=== PATIENT | female | born 1955 | race Caucasian/White ===

== ENCOUNTER → 2018-01-05 11:22 | Outpatient (CLI) | payer BC, SELFPAY ==
--- NOTE | 2018-01-05 11:45 | XR_ITS ---
XR hand RT min 3V HISTORY: Pain following injury ITS.REASON: RT HAND INJURY ORDERING PHYSICIAN: Pepper Arenas PATIENT AGE: 62 years COMPARISON: None FINDINGS: Small bony densities are present along the dorsal aspect of the PIP joint of the fourth and DIP of the and fifth fingers suggesting avulsion fractures which are age indeterminate and may be old.. There are osteoarthritic changes of the DIP joint of the second, third, and fifth digits. Severe osteoarthritic changes are present at the first metacarpal/carpal joint with subarticular cystic changes and bony hypertrophy IMPRESSION: 1. Avulsion type injuries at the PIP of the fourth digit and the appendectomy of the fifth digit. These are age-indeterminate. Correlation with patient's area of pain is needed. 2. Osteoarthritis
== END ==
PROVIDERS: PCP Nurse Practitioner Family; Visit Provider Nurse Practitioner Family
DX: S69.91XA Unspecified injury of right wrist, hand and finger(s), initial encounter (principal)
CPT/HCPCS: 73130

== ENCOUNTER → 2018-02-01 12:11 | Outpatient (CLI) | payer BC, SELFPAY ==
--- NOTE | 2018-02-01 12:18 | XR_ITS ---
XR hand RT min 3V Ordering Physician: Pepper Arenas Patient Age: 62 years: Female HISTORY: ITS.REASON: INJURY OF RT HAND Follow-up fracture fourth finger TECHNIQUE: 3 view right hand COMPARISON :01/05/2018 right hand FINDINGS Fourth finger. Again seen is a tiny osseous flake fragment at the dorsal aspect the PIP joint. This could reflect a tiny dorsal corner fracture vs old fragmented hypertrophic changes.. Clinical correlation required. I tend to favor this is a older feature but cannot exclude acute event if there is focal tenderness here. There are arthritic changes at this joint as well Fifth finger.. Also the lateral view, note tiny fragment off the dorsal aspect DIP joint. With similar considerations. I favor more likely related to the degenerative arthritic process. The index finger also demonstrate a larger more corticated fragment at the dorsal aspect of the DIP joint which is clearly old and a likely related to fragmented hypertrophic spurring Joint Marginal osteophytes most evident at the base the dorsal head of proximal phalanx AP view shows the prominent joint space narrowing and arthritic changes throughout the DIP joints and to lesser degree PIP joints. Is also slight narrowing at the third and second MCP joint. Only slight narrowing and arthritic changes at IP joint of thumb Severe arthritic changes are seen at the first carpal-metacarpal joint with sclerotic changes and hypertrophic changes about this area. IMPRESSION: Osteoarthritis hand . The small previously mentioned small osseous flake fragments the dorsal aspect of fourth finger PIP joint fifth finger DIP joint are again noted. No appreciable change since since 01/05/2018. If focally tender here after trauma either these could be related to tiny flake fractures;. However they may merely be related to the developing hypertrophic degenerative arthritic changes at these joints. No significant change
== END ==
PROVIDERS: PCP Nurse Practitioner Family; Visit Provider Nurse Practitioner Family
DX: S69.91XD Unspecified injury of right wrist, hand and finger(s), subsequent encounter (principal)
CPT/HCPCS: 73130

== ENCOUNTER → 2018-03-23 09:49 | Outpatient (CLI) | payer BC, SELFPAY ==
[2018-03-23 10:40] LABS: Blood Urea Nitrogen 20 mg/dL (7-18); Creatinine,Serum 0.78 mg/dL (0.55-1.02); Estimated Glomerular Filt Rate 75 ml/min (>60); GFR (African American) 91 ML/MIN (>60)
--- NOTE | 2018-03-23 11:32 | CT_ITS ---
CT abdomen pelvis w con CLINICAL INDICATION: ITS.REASON: PERIUMBILICAL ABD PAIN,DIARRHEA NAUSEA AND VOMITING ORDERING PHYSICIAN: Pepper Arenas PATIENT AGE: 62 years TECHNIQUE: Axial images obtained with sagittal and coronal reformats. All CT scans at the facility use one or more dose reduction, viz: automated exposure control; ma/kV adjustment per patient size (including targeted exams where dose is matched to indication; i.e. head); or iterative reconstruction technique. PROCEDURE: Oral Contrast: Redicat IV Contrast: 75 mL Isovue-370. FINDINGS: There are mild atelectatic changes in the left lower lobe. Liver, spleen, adrenal glands, gallbladder, and pancreas have an unremarkable appearance. There is mild ectasia of the right renal pelvis and ureter. No obvious obstructing ureteral calculus evident. No intestinal obstruction or free air. There is a small umbilical hernia containing fat and a knuckle of transverse colon. No evidence of bowel obstruction. Moderate amount retained colonic feces present throughout the colon. There has been prior hysterectomy. No pelvic mass or abnormal fluid collection apparent. There is minimal stranding of the fat in the left lower quadrant at the inguinal region nonspecific. No abscess. No evidence of appendicitis or diverticulitis. No acute bony anomalies. There are few scattered metallic foci in pelvis may be due to small clips. IMPRESSION: 1. No acute finding. 2. Small umbilical hernia containing fat and a knuckle transverse colon. No evidence of intestinal obstruction. Mild amount retained colonic feces. 3. Mild ectasia of the right renal collecting system which could be related to prior obstruction or urinary tract infection. No obstructing calculi evident
== END ==
PROVIDERS: Family Provider Nurse Practitioner Family; PCP Nurse Practitioner Family; Visit Provider Nurse Practitioner Family
DX: R10.33 Periumbilical pain (principal); R19.7 Diarrhea, unspecified; R11.2 Nausea with vomiting, unspecified
CPT/HCPCS: 36415; 74177; 82565; 84520; Q9967

== ENCOUNTER → 2018-06-29 09:42 | Outpatient (CLI) | payer BC, SELFPAY ==
--- NOTE | 2018-06-29 09:42 | XR_ITS ---
XR foot wt bearing LT 3V HISTORY: ITS.REASON: pain ORDERING PHYSICIAN: Analia Hodge DPM PATIENT AGE: 63 years COMPARISON: None FINDINGS: No fracture or dislocation. No lytic or blastic change. There is normal mineralization.. The joint spaces are well-preserved. There are osteoarthritic changes at the second, third, and fourth metatarsal tarsal joint and the navicular cuneiform joint. There are hypertrophic changes along the anterior distal tibia and along the dorsal aspect of the midfoot. There is mild lateral angulation of the second, third, and fourth toes. Calcaneal spurs present without erosion. IMPRESSION: Degenerative changes as described above, no acute finding
--- NOTE | 2018-06-29 09:42 | XR_ITS ---
XR foot wt bearing RT 3V HISTORY: ITS.REASON: pain ORDERING PHYSICIAN: Analia Hodge DPM PATIENT AGE: 63 years COMPARISON: None FINDINGS: No fracture or dislocation. No lytic or blastic change. There is normal mineralization.. The joint spaces are well-preserved. No significant degenerative/arthritic changes. No erosive changes evident. There is a small calcaneal spur. There is normal alignment. Hypertrophic changes are present at the anterior aspect of the distal tibia. Minimal hypertrophic changes are present dorsally in the mid foot and at the distal aspect of the first metatarsal. IMPRESSION: Mild degenerative change, no acute finding
== END ==
PROVIDERS: Visit Provider Podiatrist
DX: M79.673 Pain in unspecified foot (principal)
CPT/HCPCS: 73630

== ENCOUNTER → 2018-07-26 11:29 | Outpatient (CLI) | payer BC, SELFPAY ==
--- NOTE | 2018-07-26 11:34 | XR_ITS ---
XR chest 2V HISTORY: ITS.REASON: PNEUMONIA ORDERING PHYSICIAN: Pepper Arenas PATIENT AGE: 63 years COMPARISON: 05/16/2010 FINDINGS: Right subclavian catheter present with the tip in region of SVC. Unremarkable heart size. The right hilum is prominent possibly related overlying pulmonary vessels. Follow-up may confirm. The lungs are clear bilaterally. Degenerative changes are present thoracic spine. IMPRESSION: No acute finding. Mild prominence of the right hilum. Follow-up recommended to confirm stability
== END ==
PROVIDERS: PCP Nurse Practitioner Family; Visit Provider Nurse Practitioner Family
DX: J18.1 Lobar pneumonia, unspecified organism (principal)
CPT/HCPCS: 71046

== ENCOUNTER 2018-08-02 10:00 | Outpatient (RCR) | payer BC, SELFPAY ==
--- NOTE | 2018-07-07 15:17 | HMH.PTOPEV ---
PT Outpatient Evaluation Rehab PT Outpatient Evaluation Start: 07/07/18 14:56 Freq: Status: Active Protocol: Document 07/07/18 14:56 BRAULIO (Rec: 07/07/18 15:17 PDESEROUX [id number]) Electronically Signed By Jesse Nix, PT 07/07/18 14:56 Outpatient Therapy Subjective History Subjective History Pt. is a 63 year old white female who presents to outpatient PT with chronic bilateral feet pain R>L. Pt. reported she didn't seek out medical attention until 6 months ago. Pt. reported her MD prescribed bilateral inserts which she started using today (07/07/18). Most recent diagnostics negative for fracture in bilateral ankles. PMH include cancer in 1991, 2 c-sections, 5 abdominal surgeries, avendano- prince syndrome, diabetes, gout, and Menieres disease. Current medication include Allopurinol, tylenol, and potassium pills. Chief Complaint Pain Swelling Symptom Type Ache Sharp Symptoms Relieved By Rest/Positioning Ice OTC Meds Symptoms Aggravated By Standing Physical Activity Walking Prior Functional Limitations None Current Functional Limitations Standing Recreation Activity Walking Stairs Symptom Description Constant but Variable Level of pain today (0-10) 0 Pain scale - at its best (0-10) 0 Pain scale - at its worst (0-10) 10 Ankle/Foot Eval Gait Observation General Gait Pattern Observation No Deviations/Normal Assistive Device Ambulation Assistive Device None Palpation Tenderness bilateral Ankle/Foot Palpation Findings Tenderness Ankle/Foot Palpation Overall Comment grade 3 +TTP bilateral posterior tibialis mm. insertion ATF TTP positive PTF TTP positive CF TTP negative Deltoid ligament TTP negative ROM right Ankle/Foot Dorsiflexion w/Knee Extended 16 Active Range Motion (degrees)
== END 2018-08-09 10:26 | disposition home or self-care (01) ==
LOC: PT 10:00
PROVIDERS: Visit Provider Podiatrist
DX: M76.821 Posterior tibial tendinitis, right leg (principal); M76.822 Posterior tibial tendinitis, left leg
CPT/HCPCS: 97010; 97016; 97110; 97112; 97140; 97163

== ENCOUNTER 2018-11-10 10:13 | Outpatient (CLI) | payer BC, SELFPAY ==
[2018-11-10 10:23] VITALS: BMI 48.8
[2018-11-10 11:10] VITALS: BP 131/78; PULSE 80; RESP 20; TEMP 37.1; O2SAT 98
[2018-11-10 11:12] VITALS: BP 131/78; PULSE 80; RESP 18; TEMP 36.8; O2SAT 98
[2018-11-10 11:19] LABS: Basophils % 0.6 % (0.1-2.0); Eosinophils # 0.2 K/mm3 (0.0-0.4); Eosinophils % 3.4 % (0.1-12.0); Hematocrit 39.9 % (37.0-47.0); Hemoglobin 12.7 g/dL (12.2-16.2); Lymphocytes # 2.6 K/mm3 (0.7-4.5); Mean Corpuscular HGB Conc 31.8 g/dL (31.8-35.4); Mean Corpuscular Hemoglobin 29.4 pg (27.0-31.2); Mean Corpuscular Volume 92.5 fl (81-99); Mean Platelet Volume 6.6 fl (7.4-10.4); Monocytes # 0.5 K/mm3 (0.1-1.0); Monocytes % 7.8 % (1.7-9.3); Neutrophils # 3.3 K/mm3 (1.8-7.8); Neutrophils % 49.2 % (37.0-80.0); Platelet Count 368 K/mm3 (142-424); Red Blood Count 4.32 M/mm3 (4.20-5.40); Red Cell Distribution Width 14.4 % (11.5-17.5); White Blood Count 6.7 K/mm3 (4.8-10.8)
[2018-11-10 11:37] LABS: Alanine Aminotransferase 16 U/L (12-78); Albumin Level 3.6 gm/dL (3.4-5.0); Alkaline Phosphatase 75 U/L (46-116); Anion Gap 9.5 mEq/L (5-15); Aspartate Amino Transferase 16 U/L (15-37); Bilirubin,Total 0.4 mg/dL (0.2-1.0); Blood Urea Nitrogen 18 mg/dL (7-18); Carbon Dioxide 32 mmol/L (21.0-32.0); Chloride 101 mmol/L (98-107); Chol/HDL Ratio 4.8 (1-3.5); Cholesterol 272 mg/dL (140-200); Creatinine Clearance Estimated 46 mL/min (50-200); Creatinine,Serum 0.78 mg/dL (0.55-1.02); Estimated Glomerular Filt Rate 75 ml/min (>60); GFR (African American) 90 ML/MIN (>60); Globulin 3.5 gm/dl (1.3-3.2); Glucose 92 mg/dL (74-106); HDL Cholesterol 57 mg/dL (29-89); LDL Cholesterol 195 mg/dL (0-130); Potassium 3.5 mmoL/L (3.5-5.1); Sodium 139 mmol/L (136-145); Total Protein,Serum 7.1 gm/dL (6.4-8.2); Triglycerides 100 mg/dL (30-200); VLDL Cholesterol 20 mg/dL (0-40)
[2018-11-11 11:15] LABS: Cancer Antigen (CA) 125 14.9 U/mL (0.0-38.1); Hep A Ab, IgM Negative (Negative)
[2018-11-11 20:10] LABS: HBV IU/mL HBV DNA not detected IU/mL (.)
== END 2018-11-10 11:10 | disposition home or self-care (01) ==
LOC: INF 10:14
PROVIDERS: PCP Family Medicine; Visit Provider Nurse Practitioner Family
DX: Z45.2 Encounter for adjustment and management of vascular access device (principal); R11.0 Nausea; I10 Essential (primary) hypertension; E78.00 Pure hypercholesterolemia, unspecified; Z85.9 Personal history of malignant neoplasm, unspecified
CPT/HCPCS: 80053; 80061; 85025; 86316; 86708; 87517; J1642

== ENCOUNTER → 2019-04-18 11:16 | Outpatient (CLI) | payer BC, SELFPAY ==
--- NOTE | 2019-04-18 11:28 | XR_ITS ---
XR knee LT 3V HISTORY: Left knee pain following injury ITS.REASON: LT KNEE INJURY ORDERING PHYSICIAN: Pepper Arenas APRN PATIENT AGE: 64 years COMPARISON: 06/09/2017 FINDINGS: Status post total knee replacement. The prosthesis remains in place. No evidence of acute fracture. There is some increase in heterotopic ossification along the distal and lateral aspect of the femur. IMPRESSION: No acute finding. Status post total knee replacement
--- NOTE | 2019-04-18 11:28 | XR_ITS ---
XR knee RT 3V HISTORY: Pain following injury ITS.REASON: RT KNEE INJURY ORDERING PHYSICIAN: Pepper Arenas APRN PATIENT AGE: 64 years COMPARISON: 06/09/2017 FINDINGS: No acute fracture or dislocation. There has been a prior total knee replacement with good alignment of the prosthesis and no evidence of orthopedic complication. IMPRESSION: Prior total knee replacement, no acute finding
== END ==
PROVIDERS: PCP Nurse Practitioner Family; Visit Provider Nurse Practitioner Family
DX: S89.92XA Unspecified injury of left lower leg, initial encounter (principal); S89.91XA Unspecified injury of right lower leg, initial encounter
CPT/HCPCS: 73562

== ENCOUNTER 2019-08-01 13:07 | Outpatient (CLI) | payer BC, SELFPAY ==
[2019-08-01 13:14] VITALS: BMI 47.7
[2019-08-01 13:40] VITALS: BP 112/74; PULSE 68; RESP 20; TEMP 36.9; O2SAT 95
[2019-08-01 14:04] LABS: Basophils % 0.4 % (0.1-2.0); Eosinophils # 0.2 K/mm3 (0.0-0.4); Eosinophils % 2.6 % (0.1-12.0); Hematocrit 38.6 % (37.0-47.0); Hemoglobin 11.6 g/dL (12.2-16.2); Lymphocytes # 2.8 K/mm3 (0.7-4.5); Mean Corpuscular HGB Conc 30.1 g/dL (31.8-35.4); Mean Corpuscular Hemoglobin 27.8 pg (27.0-31.2); Mean Corpuscular Volume 92.5 fl (81-99); Mean Platelet Volume 6.7 fl (7.4-10.4); Monocytes # 0.6 K/mm3 (0.1-1.0); Monocytes % 7.3 % (1.7-9.3); Neutrophils # 4.8 K/mm3 (1.8-7.8); Neutrophils % 56.8 % (37.0-80.0); Platelet Count 362 K/mm3 (142-424); Red Blood Count 4.18 M/mm3 (4.20-5.40); Red Cell Distribution Width 14.4 % (11.5-17.5); White Blood Count 8.5 K/mm3 (4.8-10.8)
[2019-08-01 14:20] LABS: Alanine Aminotransferase 13 U/L (12-78); Albumin Level 3.2 gm/dL (3.4-5.0); Albumin/Globulin Ratio 0.9 (1.1-1.8); Alkaline Phosphatase 70 U/L (46-116); Anion Gap 9.7 mEq/L (5-15); Aspartate Amino Transferase 11 U/L (15-37); Bilirubin,Total 0.2 mg/dL (0.2-1.0); Blood Urea Nitrogen 16 mg/dL (7-18); Carbon Dioxide 32 mmol/L (21.0-32.0); Chloride 102 mmol/L (98-107); Creatinine Clearance Estimated 45 mL/min (50-200); Creatinine,Serum 0.68 mg/dL (0.55-1.02); Estimated Glomerular Filt Rate 87 ml/min (>60); GFR (African American) 105 ML/MIN (>60); Globulin 3.7 gm/dl (1.3-3.2); Glucose 85 mg/dL (74-106); Potassium 3.7 mmoL/L (3.5-5.1); Sodium 140 mmol/L (136-145); Total Protein,Serum 6.9 gm/dL (6.4-8.2)
[2019-08-01 15:12] LABS: Chol/HDL Ratio 5.7 (1-3.5); Cholesterol 216 mg/dL (140-200); HDL Cholesterol 38 mg/dL (29-89); LDL Cholesterol 138 mg/dL (0-130); Triglycerides 202 mg/dL (30-200); VLDL Cholesterol 40 mg/dL (0-40)
== END 2019-08-01 13:45 | disposition home or self-care (01) ==
LOC: INF 13:07
PROVIDERS: Visit Provider Family Medicine
DX: Z45.2 Encounter for adjustment and management of vascular access device (principal)
CPT/HCPCS: 80053; 80061; 85025; J1642

== ENCOUNTER → 2019-08-29 13:07 | Outpatient (CLI) | payer BC, SELFPAY ==
--- NOTE | 2019-08-29 13:16 | XR_ITS ---
PROCEDURE: XR KNEE LT 3V CLINICAL INDICATION: LT KNEE INJURY Fall with injury and pain COMPARISON: KNEE3R KNEE-3 VIEWS-RT from 06/09/2017 KNEE3L KNEE-3 VIEWS-LT from 06/09/2017 FINDINGS: No fracture or dislocation. Status post total knee replacement with good alignment. No evidence of orthopedic complication. There is some faint increased density in the popliteal region as seen on the lateral view possibly due to artifact or soft tissue calcification. IMPRESSION: Good alignment status post total knee replacement. No acute fracture Dictated by: Azeem Rueda MD 08/29/2019 14:17 Electronically signed by Azeem Rueda MD in [place] 08/29/2019 14:17
--- NOTE | 2019-08-29 13:16 | XR_ITS ---
PROCEDURE: XR KNEE RT 3V CLINICAL INDICATION: RT KNEE INJURY Follow-up total knee replacement COMPARISON: KNEE3R KNEE-3 VIEWS-RT from 06/09/2017 KNEE3L KNEE-3 VIEWS-LT from 06/09/2017 FINDINGS: Status post total knee replacement with good alignment in no evidence of orthopedic complication No fracture or dislocation Other findings:None. IMPRESSION: Normal alignment status post total knee replacement Dictated by: Azeem Rueda MD 08/29/2019 14:15 Electronically signed by Azeem Rueda MD in [place] 08/29/2019 14:15
== END ==
PROVIDERS: PCP Nurse Practitioner Family; Visit Provider Nurse Practitioner Family
DX: S89.92XA Unspecified injury of left lower leg, initial encounter (principal); S89.91XA Unspecified injury of right lower leg, initial encounter
CPT/HCPCS: 73562

== ENCOUNTER → 2020-03-16 11:54 | Outpatient (CLI) | payer MEDICARE, BC, SELFPAY ==
--- NOTE | 2020-03-16 | XR_ITS ---
PROCEDURE: XR HIP LT 2-3V W/PELVIS CLINICAL INDICATION: Bilateral hip pain COMPARISON: Right hip same date FINDINGS: There is mild to moderate asymmetrical joint space narrowing somewhat more prominent than the right hip. The femoral head and neck appear intact. There is moderate spurring of the greater trochanter. There is spurring and minor sclerosis of the left SI joint. IMPRESSION: Osteoarthritic changes left hip which are slightly more prominent than the right hip Dictated by: Dr. Panchito Domínguez MD 03/16/2020 12:[address] Panchito Domínguez MD in [facility] 03/16/2020 12:46
--- NOTE | 2020-03-16 | XR_ITS ---
PROCEDURE: XR HIP RT 2-3V W/PELVIS CLINICAL INDICATION: Bilateral hip pain COMPARISON: Left hip same date FINDINGS: There is minor asymmetrical joint space narrowing and moderate sclerosis of the acetabulum superiorly and inferiorly. The femoral head and neck appear intact. There is minor spurring of the greater trochanter. There are no soft tissue calcifications. There is no fracture. There is spurring of the inferior aspects of the SI joints bilaterally. IMPRESSION: Minor osteoarthritic changes as noted Dictated by: Dr. Panchito Domínguez MD 03/16/2020 12:[address] Panchito Domínguez MD in [facility] 03/16/2020 12:45
== END ==
PROVIDERS: PCP Nurse Practitioner Family; Visit Provider Nurse Practitioner Family
DX: M76.822 Posterior tibial tendinitis, left leg (principal); M76.821 Posterior tibial tendinitis, right leg
CPT/HCPCS: 73502

== ENCOUNTER 2020-04-02 13:14 | Outpatient (CLI) | payer MEDICARE, BC, SELFPAY ==
[2020-04-02 13:16] VITALS: BMI 45.7
[2020-04-07 13:52] LABS: Estrogen 46 pg/mL (.)
== END 2020-04-02 13:40 | disposition home or self-care (01) ==
LOC: INF 13:14
PROVIDERS: Visit Provider Nurse Practitioner Family
DX: R23.2 Flushing (principal); Z95.828 Presence of other vascular implants and grafts
CPT/HCPCS: 82672; J1642

== ENCOUNTER → 2020-04-02 14:29 | Outpatient (CLI) | payer MEDICARE, BC, SELFPAY | PROVIDERS: Visit Provider Nurse Practitioner Family | DX: R23.2 Flushing (principal) ==

== ENCOUNTER → 2020-04-26 10:00 | Outpatient (CLI) | payer MEDICARE, BC, SELFPAY | PROVIDERS: PCP Nurse Practitioner Family; Visit Provider Nurse Practitioner Family | DX: R06.02 Shortness of breath (principal) | CPT/HCPCS: 71046 ==

== ENCOUNTER → 2020-06-25 09:49 | Outpatient (CLI) | payer MEDICARE, BC, SELFPAY ==
--- NOTE | 2020-06-25 09:55 | XR_ITS ---
PROCEDURE: XR KNEE RT 3V CLINICAL INDICATION: knee pain COMPARISON: CR KNEE3L KNEE-3 VIEWS-LT from 06/09/2017 CR KNEE3R KNEE-3 VIEWS-RT from 06/09/2017 CR XR KNEE RT 3V from 08/29/2019 CR XR KNEE LT 3V from 08/29/2019 FINDINGS: Status post total knee replacement. There is good alignment of the prosthesis with no acute finding. No significant change from 08/19/2019. Other findings:None. IMPRESSION: Status post total knee replacement with no change in no acute finding Dictated by: Azeem Rueda MD 06/25/2020 11:12 Azeem Rueda MD in [facility] 06/25/2020 11:12
--- NOTE | 2020-06-25 09:55 | XR_ITS ---
PROCEDURE: XR KNEE LT 3V CLINICAL INDICATION: knee pain COMPARISON: CR KNEE3L KNEE-3 VIEWS-LT from 06/09/2017 CR KNEE3R KNEE-3 VIEWS-RT from 06/09/2017 CR XR KNEE RT 3V from 08/29/2019 CR XR KNEE LT 3V from 08/29/2019 FINDINGS: Status post node total knee replacement. Good alignment. Minimal dystrophic calcification noted along the lateral aspect of the distal femur Other findings:None. IMPRESSION: No acute finding status post total knee replacement. No significant change. Dictated by: Azeem Rueda MD 06/25/2020 11:13 Azeem Rueda MD in [facility] 06/25/2020 11:13
== END ==
PROVIDERS: PCP Nurse Practitioner Family; Visit Provider Orthopaedic Surgery
DX: M25.562 Pain in left knee (principal); M25.561 Pain in right knee
CPT/HCPCS: 73562

== ENCOUNTER 2020-06-28 11:00 | Outpatient (RCR) | payer MEDICARE, BC, SELFPAY ==
--- NOTE | 2020-04-26 | XR_ITS ---
PROCEDURE: XR CHEST 2V CLINICAL HISTORY: SOA COMPARISON: CXR2V XR chest 2V from 07/26/2018 FINDINGS: Lung meneses are clear. There is mild degenerative thoracic scoliosis. There is a right IJ sushma catheter with distal tip in the mid SVC. Soft tissues are unremarkable. IMPRESSION: Clear lung meneses, sushma catheter, degenerate scoliosis of the thoracic spine Dictated by: Richard Gmoez 04/26/2020 16:24 Electronically signed by Richard Gomez in [facility] 04/26/2020 16:24
--- NOTE | 2020-04-26 11:19 | HMH.PTOPEV ---
PT Outpatient Evaluation Rehab PT Outpatient Evaluation Start: 04/26/20 10:35 Freq: Status: Active Protocol: Document 04/26/20 10:35 KATJA (Rec: 04/26/20 11:19 KATJA [id number]) Electronically Signed By Alex Jarrell, PT 04/26/20 10:35 Outpatient Therapy Subjective History Subjective History Pt reports h/o chronic B hip/ LE pain over the last ~3 months, 'possibly due to increased walking'. Pt reports chronic LBP as well, and currently reports 'worst area is in the right glut area'. Pt reports R hip weakness, w/ inability to amb. up stairs elading with RLE. Chief Complaint Pain,Stiff,Paresthesia, Weakness Symptom Type Ache,Dull Symptoms Relieved By Rest/Positioning,Heat Symptoms Aggravated By Physical Activity,Walking, Lifting Prior Functional Limitations Lifting,Housework,Walking Current Functional Limitations Lifting,Housework,Walking, Bending/Stooping Symptom Description Constant but Variable Level of pain today (0-10) 9 Pain scale - at its best (0-10) 4 Pain scale - at its worst (0-10) 10 Lumbopelvic Eval Posture Thoracic Spine Posture Standing Position Neutral Lumbar Spine Posture Standing Position Neutral Assistive device Assistive Devices None / NA Gait Observation General Gait Pattern Observation Antalgic Gait,Wide Based Gait Palapation tenderness bilateral lumbar spinal tenderness Yes: 3/4 paraspinal tenderness Yes: 3/4 buttock tenderness Yes: 3/4 Lumbar/Sacral Palpation Findings Tenderness,Muscle Guarding Accessory Movement L-spine Vertebrae Accessory Movements Central P/A [place] that Elicit Symptoms L3 bilateral L4 bilateral L5 bilateral Range of Motion Lumbar Spine Active Flexion Range of 0-30 Motion (degrees) Lumbar Spine Active Extension Range of 0-10 Motion (degrees) Left Lumbar Spine Lateral Flexion Active 0-15 Range of Motion (degrees) Right Lumbar Spine Lateral Flexion 0-15 Active Range of Motion (degrees) Lumbar Spine ROM Limitations Pain Manual Muscle Test Bilateral Knee Extension Strength Grade 5 Normal Knee Flexion Strength Grade 5 Normal Hip Flexion Strength Grade 4- Good- Extensor Hallucis Longus Strength Grade 4 Good Ankle Dorsiflexion Strength Grade 4 Good Gastronemius/Soleus Strength Grade 4- Good- DTR Rt Pat
== END 2020-06-28 11:05 | disposition home or self-care (01) ==
LOC: PT 11:00
PROVIDERS: PCP Nurse Practitioner Family; Visit Provider Orthopaedic Surgery
DX: M25.552 Pain in left hip (principal); M25.551 Pain in right hip
CPT/HCPCS: 71046; 97010; 97012; 97014; 97035; 97110; 97140; 97163; 97164; 97530; G0283

== ENCOUNTER 2020-07-06 14:10 | Outpatient (CLI) | payer MEDICARE, BC, SELFPAY | END 2020-07-06 14:40 | disposition home or self-care (01) | LOC: INF 14:16 | PROVIDERS: Visit Provider Nurse Practitioner Family | DX: Z45.2 Encounter for adjustment and management of vascular access device (principal); Z95.828 Presence of other vascular implants and grafts | CPT/HCPCS: 96523; J1642 ==

== ENCOUNTER 2020-08-08 11:00 | Outpatient (RCR) | payer MEDICARE, BC, SELFPAY ==
--- NOTE | 2020-07-04 11:08 | HMH.PTOPEV ---
PT Outpatient Evaluation Rehab PT Outpatient Evaluation Start: 07/04/20 10:01 Freq: Status: Active Protocol: Document 07/04/20 10:04 KAMERONMANAS (Rec: 07/04/20 11:08 IDANIA [id number]) Electronically Signed By Albert Shetty PT 07/04/20 10:04 Outpatient Therapy Subjective History Subjective History This is the initial Physical Therapy evaluation for Clarissa Russo. Pt is a 65 y/o female referred to PT for c/o B knee pain. Pt reports she had B TKA 5-8 years ago does not remember exactly. Pt reports she did therapy for knees but never felt quite right . Pt reprots c/o pain w/ stairs, walking, household and rec activities. Pt rpeorts her knees sometimes lock up and sometimes give out. Pt reports pain is constant but variable. Chief Complaint Pain,Catches/Locks,Gives out/ Unstable Symptom Type Ache,Throb,Sharp,Stabbing Symptoms Relieved By Rest/Positioning,Ice,OTC Meds Symptoms Aggravated By Physical Activity,Walking Prior Functional Limitations None Current Functional Limitations Housework,Standing,Squatting, Recreation Activity,Walking, Stairs Symptom Description Constant but Variable Level of pain today (0-10) 4 Pain scale - at its best (0-10) 3 Pain scale - at its worst (0-10) 10 Hip/Knee Eval Gait Observation General Gait Pattern Observation No Deviations/Normal Assistive Device Assistive Devices None / NA Palpation Tenderness bilateral Knee Palpation Finding Tenderness Knee Palpation Overall Comment TTP at pes anserine MMT Hip Flexion Strength Grade 4 Good Hip Abduction Strength Grade 4 Good Hip Adduction Strength Grade 4 Good Hip External Rotation Strength Grade 4 Good Hip Internal Rotation Strength Grade 4 Good Knee Extension Strength Grade 4 Good Knee Flexion Strength Grade 4 Good ROM Hip ROM Limitations Soft Tissue Tightness Hip ROM Reason Not Measured Within Functional Limits Knee ROM Reason Not Measured Within Functional Limits Special Tests Hip Bowstring (Cram) Test Negative Left,Negative Right Hip Piriformis Test Negative Left,Negative Right Hip Scouring (Quadrant) Test Positive Left,Positive Right Knee Valgus Stress Test Negative Left,Negative Right Knee Varus Stress Test
== END 2020-08-08 12:00 | disposition home or self-care (01) ==
LOC: PT 11:00
PROVIDERS: PCP Nurse Practitioner Family; Visit Provider Nurse Practitioner Family
DX: M25.562 Pain in left knee (principal); M25.561 Pain in right knee; Z96.652 Presence of left artificial knee joint; Z96.651 Presence of right artificial knee joint
CPT/HCPCS: 97010; 97014; 97035; 97110; 97112; 97163; G0283

== ENCOUNTER → 2020-08-17 11:27 | Outpatient (CLI) | payer MEDICARE, BC, SELFPAY ==
[2020-08-18 09:00] LABS: Covid-19 Nasal PCR Sendout UK NOT DETECTED
== END ==
PROVIDERS: PCP Nurse Practitioner Family; Visit Provider Family Medicine
DX: Z03.818 Encounter for observation for suspected exposure to other biological agents ruled out (principal)
CPT/HCPCS: U0003

== ENCOUNTER → 2020-11-26 11:22 | Outpatient (CLI) | payer MEDICARE, BC, SELFPAY ==
[2020-11-26 12:05] LABS: Basophils # 0.1 K/mm3 (0-0.2); Basophils % 0.6 % (0.1-2.0); Eosinophils # 0.2 K/mm3 (0.0-0.4); Eosinophils % 2.4 % (0.1-12.0); Hematocrit 44.9 % (37.0-47.0); Hemoglobin 14.4 g/dL (12.2-16.2); Lymphocytes # 2.4 K/mm3 (0.7-4.5); Lymphocytes % 27.1 % (10-50); Mean Corpuscular HGB Conc 32.1 g/dL (31.8-35.4); Mean Corpuscular Hemoglobin 30.5 pg (27.0-31.2); Mean Platelet Volume 7.6 fl (7.4-10.4); Monocytes # 0.7 K/mm3 (0.1-1.0); Monocytes % 7.3 % (1.7-9.3); Neutrophils # 5.6 K/mm3 (1.8-7.8); Neutrophils % 62.6 % (37.0-80.0); Platelet Count 449 K/mm3 (142-424); Red Blood Count 4.73 M/mm3 (4.20-5.40); Red Cell Distribution Width 14.3 % (11.5-17.5); White Blood Count 8.9 K/mm3 (4.8-10.8)
[2020-11-26 12:33] LABS: Alanine Aminotransferase 17 U/L (12-78); Albumin Level 4.5 g/dl (3.5-5.0); Albumin/Globulin Ratio 1.4 (1.1-1.8); Alkaline Phosphatase 78 U/L (38-126); Anion Gap 12.3 mEq/L (5-15); Aspartate Amino Transferase 28 U/L (14-36); Bilirubin,Total 0.3 mg/dl (0.2-1.3); Blood Urea Nitrogen 21 mg/dl (7-17); Calcium 10.4 mg/dl (8.4-10.2); Carbon Dioxide 35 mmol/L (22.0-30.0); Chloride 94 mmol/L (98-107); Estimated Glomerular Filt Rate 72 ml/min (>60); GFR (African American) 87 ML/MIN (>60); Globulin 3.2 g/dL (1.3-3.2); Glucose 112 mg/dl (74-100); Potassium 4.3 mmoL/L (3.5-5.1); Sodium 137 mmol/L (136-145); Total Protein,Serum 7.7 g/dl (6.3-8.2)
== END ==
PROVIDERS: Visit Provider Nurse Practitioner Family
DX: R10.30 Lower abdominal pain, unspecified (principal); K59.00 Constipation, unspecified; K92.1 Melena
CPT/HCPCS: 36415; 80053; 85025

== ENCOUNTER → 2020-12-19 13:51 | Outpatient (CLI) | payer MEDICARE, BC, SELFPAY ==
[2020-12-19 15:35] LABS: Blood Urea Nitrogen 15 mg/dl (7-17); Estimated Glomerular Filt Rate 100 ml/min (>60); GFR (African American) 121 ML/MIN (>60)
== END ==
PROVIDERS: Visit Provider Nurse Practitioner Family
DX: Z01.818 Encounter for other preprocedural examination (principal)
CPT/HCPCS: 36415; 82565; 84520

== ENCOUNTER → 2020-12-21 09:03 | Outpatient (CLI) | payer MEDICARE, BC, SELFPAY ==
--- NOTE | 2020-12-21 09:07 | CT_ITS ---
PROCEDURE: CT ABDOMEN PELVIS W CON CLINICAL INDICATION: ABD OR PELVIC SWELLING,ABD PAIN,HEMATOCHEZIA Umbilical pain times several years, constipation, no complaints of nausea vomiting or diarrhea. COMPARISON: CT ABDPELW CT abdomen pelvis w con from 03/23/2018 TECHNIQUE: IV Contrast: 75ML Isovue 370 Oral Contrast small volume Redicat. Patient unable to consume full amount. Axial images obtained with sagittal and coronal reformats. All CT scans at the facility use one or more dose reduction, viz: automated exposure control, ma/kV adjustment per patient size (including targeted exams where dose is matched to indication, i.e. head), or iterative reconstruction technique. FINDINGS: LOWER THORAX: ABDOMEN & PELVIS: There is a small fat containing umbilical hernia without CT evidence of incarceration. There is no intraperitoneal free air or free fluid. Scattered surgical laine are present. There is a sub centimeter right renal cortical cyst too small to further characterize. There is mild prominence of the right renal collecting system and proximal ureter unchanged compared with the prior CT. The solid abdominal organs have an otherwise normal appearance. Urinary bladder is unremarkable. Patient has had prior hysterectomy. Segmental wall thickening in the transverse colon cannot be excluded or further evaluated in the absence of intraluminal contrast. There is a moderate amount of stool in the cecum and ascending colon. A right lower quadrant appendix is not definitely identified however there no CT secondary signs of acute appendicitis. There is no abdominal or pelvic adenopathy. The major abdominal and pelvic vasculature is unremarkable. There is degenerative change in the skeleton. IMPRESSION: Moderate amount of stool in the cecum and ascending colon. Mild unchanged prominence of the right renal collecting system and proximal ureter. Other chronic and minor findings as described above. Dictated by: Alona Bruner MD 12/21/2020 10:09 Alona Bruner MD in [place] 12/21/2020 10:09
== END ==
PROVIDERS: PCP Nurse Practitioner Family; Visit Provider Nurse Practitioner Family
DX: R19.03 Right lower quadrant abdominal swelling, mass and lump (principal); R10.30 Lower abdominal pain, unspecified; K92.1 Melena
CPT/HCPCS: 74177; Q9967

== ENCOUNTER 2021-01-09 10:57 | Outpatient (CLI) | payer MEDICARE, BC, SELFPAY | END 2021-01-09 11:07 | disposition home or self-care (01) | LOC: INF 10:57 | PROVIDERS: Visit Provider Nurse Practitioner Family | DX: Z45.2 Encounter for adjustment and management of vascular access device (principal) | CPT/HCPCS: 96523; J1642 ==

== ENCOUNTER → 2021-03-11 15:46 | Outpatient (CLI) | payer MEDICARE, BC, SELFPAY ==
[2021-03-11 16:17] LABS: Basophils # 0.1 K/mm3 (0-0.2); Eosinophils # 0.3 K/mm3 (0.0-0.4); Eosinophils % 3.7 % (0.1-12.0); Hematocrit 40.8 % (37.0-47.0); Hemoglobin 13.3 g/dL (12.2-16.2); Lymphocytes # 3.5 K/mm3 (0.7-4.5); Lymphocytes % 43.5 % (10-50); Mean Corpuscular HGB Conc 32.6 g/dL (31.8-35.4); Mean Corpuscular Hemoglobin 30.1 pg (27.0-31.2); Mean Corpuscular Volume 92.5 fl (81-99); Monocytes # 0.5 K/mm3 (0.1-1.0); Monocytes % 5.9 % (1.7-9.3); Neutrophils # 3.6 K/mm3 (1.8-7.8); Neutrophils % 45.9 % (37.0-80.0); Platelet Count 397 K/mm3 (142-424); Red Blood Count 4.41 M/mm3 (4.20-5.40); Red Cell Distribution Width 13.5 % (11.5-17.5); White Blood Count 7.9 K/mm3 (4.8-10.8)
[2021-03-11 19:04] LABS: Chloride 97 mmol/L (98-107)
[2021-03-11 19:05] LABS: Sodium 138 mmol/L (136-145)
[2021-03-11 19:07] LABS: Alanine Aminotransferase 15 U/L (12-78); Alkaline Phosphatase 77 U/L (38-126); Aspartate Amino Transferase 26 U/L (14-36); Bilirubin,Total 0.4 mg/dl (0.2-1.3); Blood Urea Nitrogen 16 mg/dl (7-17); Carbon Dioxide 32 mmol/L (22.0-30.0); Estimated Glomerular Filt Rate 100 ml/min (>60); GFR (African American) 121 ML/MIN (>60)
[2021-03-11 19:08] LABS: Albumin Level 4.4 g/dl (3.5-5.0); Albumin/Globulin Ratio 1.6 (1.1-1.8); Globulin 2.8 g/dL (1.3-3.2); Glucose 109 mg/dl (74-100); Magnesium 1.6 mg/dl (1.6-2.3); Total Protein,Serum 7.2 g/dl (6.3-8.2)
[2021-03-11 19:38] LABS: Thyroid Stimulating Hormone 1.36 uIU/mL (0.465-4.68)
== END ==
PROVIDERS: Visit Provider Nurse Practitioner Family
DX: I10 Essential (primary) hypertension (principal); R26.89 Other abnormalities of gait and mobility
CPT/HCPCS: 36415; 80053; 83735; 84443; 85025

== ENCOUNTER → 2021-03-23 10:18 | Outpatient (CLI) | payer MEDICARE, BC, SELFPAY ==
--- NOTE | 2021-03-23 10:29 | MR_ITS ---
PROCEDURE INFORMATION: Exam: MR Head Without Contrast Exam date and time: 03/23/2021 10:29 AM Age: 65 years old Clinical indication: Dizziness; Patient HX: PT has HX of imbalance, vertigo and memory issues. PT has implantable eyelid weights that or researched and found safe in the mri enviroment. ; Additional info: Imbalance and vertigo TECHNIQUE: Imaging protocol: MR of the head without contrast. COMPARISON: No relevant prior studies available. FINDINGS: Brain: No acute intracranial findings. No intracranial hemorrhage as visualized; note that no gradient or susceptibility weighted sequences were performed. No edema, swelling or mass-effect. No significant restricted diffusion/acute ischemia. A few tiny white matter FLAIR hyperintensities, greatest in the right frontal subcortical white matter series 5, images 14 -15, nonspecific but most likely chronic microvascular ischemic change. There are some mildly distended Virchow Diaz spaces, greatest in the deep left white matter along inferior left basal ganglia coronal series 8, image 13, and series 6, image 12 and on the right series 6, image 15, suggesting small vessel disease. No suspicious findings in the cerebellum or brainstem to explain imbalance and vertigo. Internal auditory canals are unremarkable as visualized, note the exam was not performed with high-resolution technique/IAC protocol. Pituitary gland is unremarkable as visualized. Normal expected flow voids in the large vessels of the [id number]. Cerebral ventricles: The ventricles are normal for age. No hydrocephalus. Prominent cavum septum pellucidum noted, a normal variant. Bones/joints: Hyperostosis frontalis interna. No acute fracture or lytic lesion seen. Paranasal sinuses: No acute findings in the visualized sinuses. No significant sinus opacification or air-fluid levels. Mild bilateral ethmoid mucosal thickening. Mastoid air cells: Mastoids are unremarkable as visualized, no effusions. Orbital cavity: Surgical changes in the orbits. Correlate for previous lens replacement surgery/cataract surgery. No acute findings. Soft tissues: There are no soft tissue masses or fluid collections. IMPRESSION: 1. No acute findings. 2. There is no MRI evidence of mass, intracranial hemorrhage, or acute infarct/acute ischemia. 3. Minimal small vessel disease and likely chronic microvascular ischemic changes, as above. 4. The brainstem, posterior fossa and internal auditory canals are unremarkable, as visualized. No obvious etiology of vertigo/imbalance identified. 5. Additional nonemergency and chronic findings as above.
== END ==
PROVIDERS: PCP Nurse Practitioner Family; Visit Provider Nurse Practitioner Family
DX: R42 Dizziness and giddiness (principal); R26.89 Other abnormalities of gait and mobility; R29.6 Repeated falls; R20.0 Anesthesia of skin; R20.2 Paresthesia of skin
CPT/HCPCS: 70551

== ENCOUNTER → 2021-04-19 09:17 | Outpatient (CLI) | payer MEDICARE, BC, SELFPAY ==
--- NOTE | 2021-04-19 09:27 | MR_ITS ---
PROCEDURE: MR LUMBAR SPINE WO CON CLINICAL INDICATION: back pain, gait disturbances, falls COMPARISON: CT CT ABDOMEN PELVIS W CON from 12/21/2020 MR MR HEAD/BRAIN WO CON from 03/23/2021 TECHNIQUE: Standard multiplanar multiecho sequences are performed without contrast. 3-D MIP and myelographic images are also rendered and reviewed FINDINGS: Mild levoscoliosis. Slight anterolisthesis of L4 on L5. No acute compression fractures of the lumbar spine. Visualized kidneys and abdominal aorta are normal. Conus medullaris appears normal terminating at mid L1. Posterior elements appear intact. Marrow signal in the lumbar vertebrae is normal. IMPRESSION: T11-12: Mild diffuse posterior annular disc bulge without nerve root compression or spinal canal stenosis. Moderate bilateral neural foraminal narrowing. T12-L1: Mild diffuse posterior disc herniation without nerve root compression or spinal canal stenosis. Moderate bilateral neural foraminal narrowing. L1-2: Mild diffuse posterior disc herniation without nerve root compression or spinal canal stenosis. Moderate bilateral neural foraminal narrowing. L2-3: Mild spinal canal stenosis due to a small central and bilateral posterolateral disc herniation, some bilateral facet spondylosis, and moderate ligamentum flavum hypertrophy. Large left far lateral disc herniation component noted with apparent compression on the left L2 nerve root far laterally. Moderate to severe left and moderate right neural foraminal narrowing. L3-4: Severe spinal canal stenosis due to a moderate central and bilateral posterolateral disc extrusion, eccentric to the right, with filling of the right lateral recess and apparent compression on the exiting right L4 nerve root, extensive bilateral facet spondylosis, and extensive ligamentum flavum hypertrophy. Moderate to severe bilateral neural foraminal stenosis. L4-5: Severe spinal canal stenosis due to the slight anterolisthesis of L4 on L5 with uncovering of the disc posteriorly, extensive bilateral facet spondylosis, and moderate ligamentum flavum hypertrophy. Moderate right and mild left neural foraminal narrowing. L5-S1: Small central and right paracentral and right far lateral disc herniation with apparent slight compression on the right S1 exiting nerve root and contact of the right L5 nerve root far laterally. Moderate spinal canal stenosis due to the disc herniation and moderate bilateral facet spondylosis. Dictated by: Ortiz Clark MD 04/19/2021 10:53 Ortiz Clark MD in [place] 04/19/2021 10:53
[2021-04-19 12:37] LABS: Vitamin B12 362 pg/mL (239-931)
[2021-04-19 12:42] LABS: Folate 9.55 ng/mL
== END ==
PROVIDERS: PCP Nurse Practitioner Family; Visit Provider Specialist
DX: G89.29 Other chronic pain (principal); M54.5 Low back pain; R29.6 Repeated falls; G58.9 Mononeuropathy, unspecified
CPT/HCPCS: 36415; 72148; 76376; 82607; 82746

== ENCOUNTER → 2021-04-22 12:04 | Outpatient (CLI) | payer MEDICARE, BC, SELFPAY ==
--- NOTE | 2021-04-22 12:17 | XR_ITS ---
PROCEDURE: XR FOOT LT MIN 3V CLINICAL INDICATION: LT FOOT PAIN,INJURY OF LT FOOT COMPARISON: CR [id number] XR foot wt bearing RT 3V from 06/29/2018 CR [id number] XR foot wt bearing LT 3V from 06/29/2018 FINDINGS: No fracture or dislocation. No lytic or blastic change. There is normal mineralization. There is lateral angulation and mild lateral subluxation the proximal phalanx at the 2nd and 3rd toes.. Mild osteoarthritic changes are present at the 1st MTP joint. Osteoarthritic changes are present at the 2nd 3rd and 4th metatarsophalangeal tarsal joint. There is mild widening of the 1st intermetatarsal space but is not significantly changed. The 2nd and 3rd tarsometatarsal the alignment is preserved. Anterior osteophytes are present at the tarsal metatarsal junction. There is a small calcaneal spur. IMPRESSION: Degenerative/osteoarthritic changes. No acute fracture Mild lateral subluxation and lateral angulation at the proximal phalanx of the 2nd and 3rd toes Dictated by: Azeem Rueda MD 04/22/2021 12:39 Azeem Rueda MD in [place] 04/22/2021 12:39
[2021-04-22 13:03] LABS: Basophils % 0.6 % (0.1-2.0); Eosinophils # 0.3 K/mm3 (0.0-0.4); Eosinophils % 3.8 % (0.1-12.0); Hematocrit 39.2 % (37.0-47.0); Hemoglobin 12.9 g/dL (12.2-16.2); Lymphocytes # 3.2 K/mm3 (0.7-4.5); Lymphocytes % 40.8 % (10-50); Mean Corpuscular HGB Conc 32.9 g/dL (31.8-35.4); Mean Corpuscular Hemoglobin 29.8 pg (27.0-31.2); Mean Corpuscular Volume 90.5 fl (81-99); Mean Platelet Volume 7.2 fl (7.4-10.4); Monocytes # 0.5 K/mm3 (0.1-1.0); Monocytes % 6.9 % (1.7-9.3); Neutrophils # 3.8 K/mm3 (1.8-7.8); Neutrophils % 47.9 % (37.0-80.0); Platelet Count 420 K/mm3 (142-424); Red Blood Count 4.33 M/mm3 (4.20-5.40); Red Cell Distribution Width 13.6 % (11.5-17.5); White Blood Count 7.9 K/mm3 (4.8-10.8)
[2021-04-22 13:31] LABS: Chloride 97 mmol/L (98-107); Potassium 4.6 mmoL/L (3.5-5.1); Sodium 140 mmol/L (136-145)
[2021-04-22 13:34] LABS: Alanine Aminotransferase 13 U/L (12-78); Albumin Level 4.5 g/dl (3.5-5.0); Albumin/Globulin Ratio 1.6 (1.1-1.8); Alkaline Phosphatase 77 U/L (38-126); Anion Gap 13.6 mEq/L (5-15); Aspartate Amino Transferase 25 U/L (14-36); Bilirubin,Total 0.4 mg/dl (0.2-1.3); Blood Urea Nitrogen 14 mg/dl (7-17); Calcium 9.7 mg/dl (8.4-10.2); Carbon Dioxide 34 mmol/L (22.0-30.0); Estimated Glomerular Filt Rate 123 ml/min (>60); GFR (African American) 149 ML/MIN (>60); Globulin 2.9 g/dL (1.3-3.2); Glucose 62 mg/dl (74-100); Total Protein,Serum 7.4 g/dl (6.3-8.2)
[2021-04-22 13:43] LABS: NT Pro Brain Natriuretic Pep. 124 pg/mL (0-125)
== END ==
PROVIDERS: Visit Provider Nurse Practitioner Family
DX: R06.02 Shortness of breath (principal); R60.9 Edema, unspecified; M79.672 Pain in left foot; S99.922A Unspecified injury of left foot, initial encounter
CPT/HCPCS: 36415; 73630; 80053; 83880; 85025

== ENCOUNTER → 2021-05-02 08:55 | Outpatient (CLI) | payer MEDICARE, BC, SELFPAY ==
--- NOTE | 2021-05-02 08:59 | US_ITS ---
PROCEDURE: US ABDOMEN LIMITED CLINICAL INDICATION: RUQ PAIN,N/V COMPARISON: No exams were available for comparison FINDINGS: PANCREAS: Unremarkable. No obvious mass or abnormal fluid collection. No ductal dilatation LIVER: No focal liver lesions demonstrated. Homogeneous echogenicity. No intrahepatic biliary ductal dilatation evident. There is appropriate direction of blood flow within a non dilated portal vein RIGHT KIDNEY: There is minimal ectasia of the right renal collecting system. There is a small right renal cyst at 4 mm GALLBLADDER: No gallstones, gallbladder wall thickening, pericholecystic fluid, or biliary dilatation. Common bile duct is normal 5 mm IMPRESSION: Negative gallbladder ultrasound. Minimal ectasia of the right renal collecting system nonspecific Dictated by: Azeem Rueda MD 05/02/2021 13:20 Azeem Rueda MD in [place] 05/02/2021 13:20
== END ==
PROVIDERS: PCP Nurse Practitioner Family; Visit Provider Nurse Practitioner Family
DX: R10.11 Right upper quadrant pain (principal); R11.2 Nausea with vomiting, unspecified
CPT/HCPCS: 76705

== ENCOUNTER → 2021-05-16 08:27 | Outpatient (POV) | payer MEDICARE, BC, SELFPAY ==
[2021-05-16 08:50] VITALS: BP 146/75; PULSE 67; RESP 18; O2SAT 97; BMI 46.6
--- NOTE | 2021-05-16 12:58 | HMH.PMCON ---
Assessment and Plan (1) Spinal stenosis, lumbar Status: Chronic Category: Medical Code(s): M48.061 - Spinal stenosis, lumbar region without neurogenic claudication (2) Degenerative disc disease, lumbar Status: Chronic Category: Medical Code(s): M51.36 - Other intervertebral disc degeneration, lumbar region (3) Lumbar radiculopathy Status: Chronic Category: Medical Code(s): M54.16 - Radiculopathy, lumbar region (4) Neurogenic claudication Status: Chronic Category: Medical Code(s): M48.062 - Spinal stenosis, lumbar region with neurogenic claudication - Assessment and plan all Dx Assessment and Plan for all problems:: Patient I discussed her referral. We will reach out to Dr. Grier to make sure the patient does indeed have a referral. We will start her on gabapentin 100mg 1 tablet p.o. 3 times daily to see if she is able to tolerate the medication. If she is able to tolerate the medication, she may benefit from an increase in that medication and may be able to stop her tramadol which is causing her to have depression. She will continue with home stretching until then. She is unable to take anti-inflammatories due to severe muscle spasms. 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 We will see her back after her referral and in 2 weeks to see if gabapentin gave her any relief. Patient has been instructed to contact the clinic with any concerns before the next appointment. Dr. Ballard has reviewed this note and agrees with this plan of care. This note was dictated using voice recognition software and make contain errors or omissions. HPI - Data of Consult Patient: new to practice Consult date: 05/16/21 Requesting Physician: Flora Medina APRN Primary Care Provider: Pepper Arenas APRN - Consult Narrative Reason for consult: Low back pain History of present illness: Ms. Russo is a 66 year old female who presents today for consultation for chronic low back pain. Patient was referred to us by Dr. Whitehead. Patient says that she is having difficulty with standing, walking, or with sitting for prolonged periods. Patient is having pain in her low back area with radiation into bilateral lower extremities. She is also having bilateral knee pain. Patient says that her knees are buckling . She says that she feels as though she is going to fall often. She is also having pain across her low back area which is worse on the left side. The pain is sharp in nature and constant. She denies any bowel or bladder changes. She denies any saddle anesthesia. She says she is also having muscle spasms in her left hip and left lateral thigh area. She says pressure gives her relief. She has had chronic low back pain since 1978 after having her 1st child. She says the pain has progressively worsened. She has had bilateral knee replacements and 5 abdominal surgeries. She attributed much of her low back pain to her previous surgeries. She does take tramadol along with 3 Tylenol in the mornings and says that it gives her up to 6 hours were relief. She says by the anytime she has to repeat the Tylenol. She does report that tramadol, however, has caused her to have some depression. She does have imaging that is showing severe spinal stenosis, along with severe narrowing and herniated disks. She does have a referral to [facility] neurosurgery by Dr. Whitehead. Patient does have some numbness and tingling in her lower extremities as well. She has undergone physical therapy for more than 6 weeks with no relief. She continues with home stretching and is unable to take ibuprofen due to spasming of muscles when taking the medication. She is very sensitive to medicines. We did discuss trying gabapentin as a short-term medication for pain relief at this time. She would like to try this. Patient see
== END ==
PROVIDERS: PCP Nurse Practitioner Family; Visit Provider Clinical Nurse Specialist Family Health
DX: M48.062 Spinal stenosis, lumbar region with neurogenic claudication (principal); M51.16 Intervertebral disc disorders with radiculopathy, lumbar region
CPT/HCPCS: 99202; G0463

== ENCOUNTER → 2021-05-30 09:10 | Outpatient (POV) | payer MEDICARE, BC, SELFPAY ==
[2021-05-30 09:17] VITALS: BP 147/75; PULSE 66; RESP 20; O2SAT 96; BMI 46.7
--- NOTE | 2021-05-30 09:48 | HMH.PAINSOAP ---
[facility] Pain Management SOAP Note Subjective:: Patient is a pleasant 66-year-old white female who presents today for follow-up. The patient was seen in our clinic on 05/16/2021. She has been treated for degenerative disc disease lumbar spine with lumbar radiculopathy symptoms and spinal stenosis as well as herniated disc. Patient does have pain in her low low back area with radiation into bilateral lower extremities. She was started on gabapentin 100 mg 1 tablet p.o. 3 times daily at her last visit. This gave her some relief, however, she is having hesitancy taking the medication due to stigma of taking controlled substances. She says her does not take anything for pain, and she feels guilty taking the medication. Patient I discussed if the medication gives her relief, it will help to increase her quality of life. She says that she has started to get some relief. She does admit to taking up to 1500 mg of Tylenol throughout the day for pain relief along with the gabapentin. She says she is not getting much relief. Patient has had a history of GI issues, therefore cannot take anti-inflammatories. The patient has also had a reaction with steroids in the past and uses caution with taking any type of steroids. She says that she is unable to tolerate many medications. She does rate her pain a 6 out of 10 today. Patient says she is unsure if she is interested in surgery, however, she does have a referral to Dr. Grier for June 24. She and I did discuss increasing her gabapentin since she is starting to get relief. She would like to try this. We also discussed changing her muscle relaxer. Flexeril is not giving her much relief. We will increase both the gabapentin and plan for the patient to stop Flexeril and start tizanidine. Patient's legs are giving out. She is now using a walking stick for standing and ambulation. Review of Systems General: No recent weight changes, no fever, no sleep disturbances Respiratory: No cough, [no shortness of air], no recurring pulmonary infections Cardiovascular/peripheral vascular: No chest pain, no palpitations, [no edema], no shortness of breath Gastrointestinal: No new onset incontinence, normal bowel movements reported Genitourinary: No new onset incontinence Musculoskeletal: [] Low back pain with radiation into bilateral lower extremities Psychiatric: [Normal mood/affect] Neurological: [Denies weakness in extremities], [denies balance issues] Objective:: Physical exam General: Alert and oriented x3, no acute distress, pleasant and cooperative, [on room air] Lungs: Respirations even and unlabored, symmetrical chest expansion Eyes: PERRL Musculoskeletal: Flexion and extension of [] lumbar [spine] somewhat guarded secondary to pain, strength in upper and lower extremities [5/5], [antalgic gait noted] Neurological: Speech clear, [bank sales and service manager equal], no gross sensory deficit Assessment:: Degenerative disc disease lumbar spine with lumbar radiculopathy symptoms, spinal stenosis with neurogenic claudication symptoms, herniated disc lumbar spine Plan:: Patient does have an appointment with Dr. Grier on June 24. We will increase patient's gabapentin to 200 mg 1 tablet p.o. 3 times daily. She does not want to go any higher than this at this time. We will also stop her Flexeril and start her on tizanidine 4 mg 1 tablet p.o. twice daily. We will see the patient back in the clinic after her appointment with Dr. Grier to reevaluate her symptoms. She has been instructed to contact the clinic if she has any concerns for next appointment. Risks and benefits of the medication have been explained in detail to the patient. The patient has been advised to consult with his/her primary care provider and pharmacist regarding drug-drug interaction of medications currently prescribed. Patient has been instructed to contact the clinic with any concerns before the next appointment. Dr. Ballard has reviewed this
== END ==
PROVIDERS: PCP Nurse Practitioner Family; Visit Provider Clinical Nurse Specialist Family Health
DX: M51.16 Intervertebral disc disorders with radiculopathy, lumbar region (principal); M48.062 Spinal stenosis, lumbar region with neurogenic claudication; M51.26 Other intervertebral disc displacement, lumbar region
CPT/HCPCS: 99212; G0463

== ENCOUNTER → 2021-07-01 09:58 | Outpatient (POV) | payer MEDICARE, BC, SELFPAY ==
[2021-07-01 10:10] VITALS: BP 136/63; PULSE 69; RESP 18; O2SAT 95; BMI 46.6
--- NOTE | 2021-07-01 10:32 | HMH.PAINSOAP ---
[facility] Pain Management SOAP Note Subjective:: Patient is a pleasant 66 year old female who presents today for follow up. Patient is being treated for degenerative disc disease lumbar spine with lumbar radicular symptoms and spinal stenosis with neurogenic claudication symptoms. Patient does have herniated disc. At last visit, the patient was referred to Dr. Grier for herniated disc She was also increased with her medication. She was on gabapentin 200 mg 1 tablet p.o. 3 times daily and tizanidine 4 mg 1 tablet p.o. twice daily as needed muscle spasms. Patient says that she is feeling groggy and feeling like she is hung over with her gabapentin dosing. It is giving her relief, however. Due to the side effects she is concerned with the medication. Patient says that she did see neurosurgery. It was recommended she undergo surgical intervention in September, however, she was also advised to undergo physical therapy. Patient was told if she gets significant relief with therapy once again, to cancel the surgery. Patient says she saw a chiropractor and ED gave her up to 75% relief to her left leg pain. She is continuing to have some low back pain, however. The patient's pain is 7 out of 10. Review of Systems General: No recent weight changes, no fever, no sleep disturbances Respiratory: No cough, no shortness of air, no recurring pulmonary infections Cardiovascular/peripheral vascular: No chest pain, no palpitations, no edema, no shortness of breath Gastrointestinal: No new onset incontinence, normal bowel movements reported Genitourinary: No new onset incontinence Musculoskeletal: Low back pain, left leg pain with heaviness and weakness lower extremities Psychiatric: [Normal mood/affect] Neurological: Heaviness in lower extremities Objective:: Physical exam General: Alert and oriented x3, no acute distress, pleasant and cooperative, [on room air] Lungs: Respirations even and unlabored, symmetrical chest expansion Eyes: PERRL Musculoskeletal: Flexion and extension of lumbar [spine] somewhat guarded secondary to pain, strength in upper and lower extremities [5/5], [antalgic gait noted] Neurological: Speech clear, [public relations account executive equal], no gross sensory deficit Assessment:: Degenerative disc disease lumbar spine with lumbar radiculopathy symptoms, spinal stenosis with neurogenic claudication symptoms, herniated disc lumbar spine Plan:: We will stop her gabapentin dose for now. We will start her on pregabalin 75 mg 1 tablet p.o. twice daily. She will take the medication for 2 to 3 days at bedtime to watch for side effects. If the patient is not having any side effects, she will increase to 75 mg 1 tablet p.o. twice daily. We will increase her ties Joann Nolan to 4 mg 1 tablet p.o. 3 times daily as needed muscle spasms. We will see her back in 2 weeks to see if Lyrica is working. She is not getting relief with Lyrica, will plan-back to gabapentin.-#[id number] 1 month.. Morphine equivalent is 0. Risks and benefits of the medication have been explained in detail to the patient. The patient has been advised to consult with his/her primary care provider and pharmacist regarding drug-drug interaction of medications currently prescribed. Patient has been prescribed a controlled substance after being counseled on the medication, medication safety, and possible side effects. ENZO report has been obtained and reviewed prior to prescription and found to be appropriate. Opioid contract was reviewed and signed by the patient, and that they have agreed to all of the terms set forth by our compliance program. Patient has been instructed to contact the clinic with any concerns before the next appointment. Dr. Ballard has reviewed this note and agrees with this plan of care. This note was dictated using voice recognition software and make contain errors or omissions. [facility] History I have reviewed the patient's past medical history: Yes Medical History: Reports::
== END ==
PROVIDERS: Visit Provider Clinical Nurse Specialist Family Health
DX: M51.16 Intervertebral disc disorders with radiculopathy, lumbar region (principal); M48.062 Spinal stenosis, lumbar region with neurogenic claudication; M51.26 Other intervertebral disc displacement, lumbar region
CPT/HCPCS: 99212; G0463

== ENCOUNTER 2021-07-10 10:59 | Outpatient (CLI) | payer MEDICARE, BC, SELFPAY | END 2021-07-10 11:30 | disposition home or self-care (01) | LOC: INF 11:00 | PROVIDERS: PCP Nurse Practitioner Family; Visit Provider Nurse Practitioner Family | DX: Z95.828 Presence of other vascular implants and grafts (principal); Z45.2 Encounter for adjustment and management of vascular access device | CPT/HCPCS: 96523; J1642 ==

== ENCOUNTER → 2021-07-18 14:46 | Outpatient (POV) | payer MEDICARE, BC, SELFPAY ==
[2021-07-18 14:57] VITALS: BP 135/69; PULSE 73; RESP 18; O2SAT 95; BMI 47.0
--- NOTE | 2021-07-18 15:19 | HMH.PAINSOAP ---
[facility] Pain Management SOAP Note Subjective:: Patient is a 66-year-old white female who presents today for medication refills. She has been treated for degenerative disc disease lumbar spine with lumbar radiculopathy symptoms and spinal stenosis with neurogenic claudication symptoms. She also has a herniated disc. She was referred to Dr. Grier office. She is planning to undergo surgical intervention with Dr. Grier. She continues with chiropractic therapy with Dr. Burrell in [facility]. She is managed in our clinic with tizanidine 4 mg 1 tablet p.o. twice daily and with Lyrica 75 mg 1 tablet p.o. twice daily. She was changed from gabapentin to tizanidine due to side effects with gabapentin. She does feel that Lyrica is giving her better relief. She says that she is noticing some increased pain, however, mid day. Today, she rates her pain a 7 out of 10. Though the medication is not taking all of her pain away, she does feel it is making her more functional. Review of Systems General: No recent weight changes, no fever, no sleep disturbances Respiratory: No cough, no shortness of air, no recurring pulmonary infections Cardiovascular/peripheral vascular: No chest pain, no palpitations, no edema, no shortness of breath Gastrointestinal: No new onset incontinence, normal bowel movements reported Genitourinary: No new onset incontinence Musculoskeletal: Low back pain with radiation into bilateral lower extremities Psychiatric: [Normal mood/affect] Neurological: Heaviness and weakness in bilateral lower extremities Objective:: Physical exam General: Alert and oriented x3, no acute distress, pleasant and cooperative, [on room air] Lungs: Respirations even and unlabored, symmetrical chest expansion Eyes: PERRL Musculoskeletal: Flexion and extension of lumbar [spine] somewhat guarded secondary to pain, strength in upper and lower extremities [5/5], [antalgic gait noted] Neurological: Speech clear, [practical nursing teacher equal], no gross sensory deficit Assessment:: Degenerative disc disease lumbar spine with lumbar radiculopathy symptoms, spinal stenosis with neurogenic claudication symptoms Plan:: We will continue the patient on to have tizanidine 4 mg 1 tablet p.o. twice daily and Lyrica 75 mg 1 tablet p.o. 3 times daily. We will increase her Lyrica to 3 times daily due to worsening pain midday. She is tolerating the medications without any side effects. Enzo #[id number] has been reviewed and is appropriate. Morphine equivalent is 0. We will see the patient back in 3 months. She will get 3 months of medication. Risks and benefits of the medication have been explained in detail to the patient. The patient has been advised to consult with his/her primary care provider and pharmacist regarding drug-drug interaction of medications currently prescribed. Patient has been prescribed a controlled substance after being counseled on the medication, medication safety, and possible side effects. ENZO report has been obtained and reviewed prior to prescription and found to be appropriate. Opioid contract was reviewed and signed by the patient, and that they have agreed to all of the terms set forth by our compliance program. Patient has been instructed to contact the clinic with any concerns before the next appointment. Dr. Ballard has reviewed this note and agrees with this plan of care. This note was dictated using voice recognition software and make contain errors or omissions. [facility] History I have reviewed the patient's past medical history: Yes Medical History: Reports:: Cancer, Depression, Hyperlipidemia, Hypertension, Osteoporosis *Have you ever received a pneumonia vaccine?: No *Have you received a flu vaccine this season?: No Other Medical History: Reports: Arthritis, Cataracts, Fibromyalgia, Osteoporosis, Sinus Problems Other Surgeries: Yes: Cancer Surgery, Cardiac Catheterization, Colonoscopy, , Diagnostic Lap, Hysterectomy-To
== END ==
PROVIDERS: Visit Provider Clinical Nurse Specialist Family Health
DX: M51.16 Intervertebral disc disorders with radiculopathy, lumbar region (principal); M48.062 Spinal stenosis, lumbar region with neurogenic claudication
CPT/HCPCS: 99212; G0463

== ENCOUNTER 2021-08-13 11:00 | Outpatient (RCR) | payer MEDICARE, BC, SELFPAY ==
--- NOTE | 2021-08-13 11:32 | HMH.RHREAS ---
Rehab Reassessment Rehab OP Re-assessment Start: 08/13/21 11:01 Freq: Status: Active Protocol: Document 08/13/21 11:01 OLIVIER (Rec: 08/13/21 11:31 OLIVIER [id number]) Electronically Signed By Robert Napoles, PT 08/13/21 11:01 Rehab Re-assessment Subjective Subjective Patient reports 50% improvement since start of care. Objective Objective Notes AROM: flx 65; ext 12; SBr 15; SBl 18 MMT: WFL Pain: 3/10 currently; 8/10 at worst over past week Neuro: NT to L 2/3 dermatomes TTP: L QL 2/4 Assessment Progress Assessment Progressing as Expected Assessment Notes Patient has tolerated progression of Rx well. Compliance with HEP noted with all LS/BLE stretching activities. PT has progressed to introducing progressive core stabilization in the clinic. Patient continues to have relief with supine mechanical traction. Persistent but improved LLE radicular symptoms. Persistent funcitonal limitations with all standing, ambulatory, bending and lifting activities. Patient goals met STG 2 Goals Not Met All others Revised Goals NA Plan Plan Continue with current POC until surgery next month. Frequency of Therapy 2x/week Duration of therapy 4 weeks. Time and Billing Re-Eval Time 15 Re-Eval Billing Units 1 PHYSICIAN CERTIFICATION: I certify the specified therapy services for Clarissa Russo are required, authorized, and reviewed every 30 days.
== END 2021-08-13 11:05 | disposition home or self-care (01) ==
LOC: PT 11:00
PROVIDERS: PCP Nurse Practitioner Family; Visit Provider Clinical Nurse Specialist Family Health
DX: M54.5 Low back pain (principal)
CPT/HCPCS: 97010; 97012; 97014; 97110; 97163; 97164; G0283

== ENCOUNTER → 2021-09-10 08:43 | Outpatient (POV) | payer MEDICARE, BC, SELFPAY ==
[2021-09-10 08:59] VITALS: BP 172/93; PULSE 68; RESP 18; O2SAT 97; BMI 47.5
--- NOTE | 2021-09-10 11:25 | HMH.PAINSOAP ---
[facility] Pain Management SOAP Note Subjective:: Patient is a 66-year-old white female who presents today for follow-up. Patient was previously seen in our clinic for low back pain with radiation into lower extremities. The patient did have per her MRI report herniated disc with spinal stenosis. Patient did request referral to neurosurgery. As result we did send the patient to neurosurgery. We also schedule the patient for physical therapy. Patient got 50% relief during physical therapy. She was scheduled for surgical intervention to lumbar spine, however because she got significant relief during physical therapy she was advised to undergo conservative therapies and surgery was postponed. She is here today to discuss possible conservative interventions with injective therapy before proceeding with surgical intervention. Patient says that she was referred to [facility] neurosurgical department. She did not feel comfortable with Dr. Sushma Milner due to the the provider discussing the patient's weight. Patient says that she felt it was very unprofessional to have discussed her weight with her. She says that she does not feel this is a contributing factor to her pain. The patient is having pain at the low middle to lower back area with radiation into bilateral feet. She says that the pain is also in bilateral knees. She does have pain numbness and tingling in her feet. She does feel better with sitting worse with standing and walking and better when leaning forward. She reports an allergy to all anti-inflammatories. She does continue with home stretching. She was referred back to us for injective therapy, however, patient says she does not really want to proceed with injections but will since surgery has been postponed. She does take Lyrica 75 mg 1 tablet p.o. twice daily which gives her significant relief. She also takes Cymbalta. She is unable to tolerate gabapentin. Review of Systems General: No recent weight changes, no fever, no sleep disturbances Respiratory: No cough, no shortness of air, no recurring pulmonary infections Cardiovascular/peripheral vascular: No chest pain, no palpitations, no edema, no shortness of breath Gastrointestinal: No new onset incontinence, normal bowel movements reported Genitourinary: No new onset incontinence Musculoskeletal: Mid to low back pain with radiation into bilateral knees and legs as well as feet Psychiatric: [Normal mood/affect] Neurological: [Denies weakness in extremities], [denies balance issues] Objective:: Review of Systems General: No recent weight changes, no fever, no sleep disturbances Respiratory: No cough, no shortness of air, no recurring pulmonary infections Cardiovascular/peripheral vascular: No chest pain, no palpitations, no edema, no shortness of breath Gastrointestinal: No new onset incontinence, normal bowel movements reported Genitourinary: No new onset incontinence Musculoskeletal: Low back pain with radiation into bilateral lower extremities numbness and tingling in bilateral feet Psychiatric: [Normal mood/affect] Neurological: [Denies weakness in extremities], [denies balance issues] Assessment:: Degenerative disc disease lumbar spine with lumbar radiculopathy symptoms, spinal stenosis, herniated disc Plan:: . She has also undergone nerve chronic headache so neurosurgery as well as who sent evaluated this from the cervical- radiate patient was referred back to us from [facility] neurosurgery department patient was initially scheduled for surgery, but because she did get up to 50% relief after physical therapy, surgery was postponed. She has been advised that she may benefit from injective therapy. Patient is not necessarily excited about undergoing injective therapy. She does say, however, she will proceed with injective therapy due to recommendation from neurosurgery. Per the patient's MRI report she does have a large left l
== END ==
PROVIDERS: Visit Provider Clinical Nurse Specialist Family Health
DX: M51.16 Intervertebral disc disorders with radiculopathy, lumbar region (principal); M48.061 Spinal stenosis, lumbar region without neurogenic claudication; M51.26 Other intervertebral disc displacement, lumbar region
CPT/HCPCS: 99212; G0463

== ENCOUNTER 2021-10-11 09:28 | Day surgery (SDC) | payer MEDICARE, BC, SELFPAY ==
[2021-10-11 09:34] VITALS: BP 127/53; PULSE 61; RESP 18; TEMP 36.3; O2SAT 97; BMI 45.7
[2021-10-11 10:01] VITALS: BP 138/90; PULSE 89; RESP 18; O2SAT 97
[2021-10-11 10:04] VITALS: BP 137/87; PULSE 64; RESP 18; O2SAT 97
--- NOTE | 2021-10-11 10:11 | P.PCN_ITS ---
- Procedure Date: 10/11/21 Time: 10:11 Anesthesiologist:: Chinedu Ballard MD Complications:: None Pre-procedure Diagnosis:: Degenerative disc disease of lumbar spine with lumbar radiculopathy symptoms and lumbar spinal stenosis with neurogenic claudication symptoms Post-procedure Diagnosis:: Same Indications for Procedure:: Patient is a pleasant 66-year-old white female who we have been treating for low back pain with lumbar radiculopathy symptoms. She does have some increasing low back pain with lumbar spinal stenosis and neurogenic claudication symptoms. She has significant ligamentum flavum hypertrophy as well as herniated disc causing severe stenosis in particular L4-L5. She did get some benefit from physical therapy. We will do a lumbar epidural steroid injection with epidurogram to see if she may be a candidate for minimally invasive lumbar decompression. Procedure Details:: Informed consent was obtained and the risk and benefits of the procedure was explained to the patient. The patient was taken to the procedure room. The patient was placed prone on the procedure table. The patient was prepped and draped in sterile fashion. C-arm fluoroscopy was used to view the lumbar spine. Skin and subcutaneous tissues were anesthetized using lidocaine. I placed an 18-gauge epidural needle and advanced into the L4-L5 interspace using fluor oscopic guidance and [id number] to air. After confirmation of needle placement in the epidural space with dye I injected 2 mL of lidocaine 1.5% with Depo-Medrol 80 mg. Patient tolerated the procedure well with no complications. Plan and Disposition:: Based on dye spread she does have significant stenosis at L3-L4 and L4-L5 bilaterally. I do believe that she would benefit from minimally invasive lumbar decompression at bilateral L3-L4 and L4-L5. We will schedule this when approved.
[2021-10-11 10:20] VITALS: BP 131/68; PULSE 61; RESP 20; O2SAT 98
== END 2021-10-11 10:20 | disposition home or self-care (01) ==
LOC: SC.PAINP 09:29
PROVIDERS: PCP Nurse Practitioner Family; Visit Provider Anesthesiology
DX: M51.16 Intervertebral disc disorders with radiculopathy, lumbar region (principal); M48.062 Spinal stenosis, lumbar region with neurogenic claudication; E78.5 Hyperlipidemia, unspecified; I10 Essential (primary) hypertension; M79.18 Myalgia, other site; F41.9 Anxiety disorder, unspecified; F32.A Depression, unspecified; Z85.43 Personal history of malignant neoplasm of ovary; Z88.6 Allergy status to analgesic agent; Z91.041 Radiographic dye allergy status; Z79.82 Long term (current) use of aspirin; Z79.899 Other long term (current) drug therapy
CPT/HCPCS: 62323; J1040; Q9966

== ENCOUNTER → 2021-10-14 10:16 | Outpatient (POV) | payer MEDICARE, BC, SELFPAY ==
[2021-10-14 10:41] VITALS: BP 150/68; PULSE 60; RESP 18; O2SAT 99; BMI 46.6
--- NOTE | 2021-10-14 10:41 | HMH.PAINSOAP ---
[facility] Pain Management SOAP Note Subjective:: Patient is a 66-year-old white female who presents today for follow-up. The patient recently underwent a lumbar epidural steroid injection with an epidurogram. The patient was referred to neurosurgery at [facility] and was not considered a neurosurgical candidate. She does have significant spinal stenosis and is exhibiting neurogenic claudication type symptoms. Patient reports to have frequent falls due to heaviness and weakness in lower extremities. She is having significant low back pain as well. Ambulating due to pain in her lower extremities. Patient says that her pain is currently a 2 out of 10. She says following the injection she got significant relief. Dr. Ballard did feel the patient was an appropriate candidate for mild procedure L3-L4 L4-L5 bilaterally. The patient says that she would like to proceed with the procedure. She has tried failed conservative therapies of physical therapy for more than 6 weeks and continued home stretching. Patient is not on any anticoagulation therapy. Today, she does have complaints of bilateral knee pain. She has had bilateral knee replacements in the past. Review of Systems General: No recent weight changes, no fever, no sleep disturbances Respiratory: No cough, no shortness of air, no recurring pulmonary infections Cardiovascular/peripheral vascular: No chest pain, no palpitations, no edema, no shortness of breath Gastrointestinal: No new onset incontinence, normal bowel movements reported Genitourinary: No new onset incontinence Musculoskeletal: Low back pain with radiation into bilateral lower extremities, knee pain, heaviness and weakness lower extremities, frequent falls Psychiatric: [Normal mood/affect] Neurological: Weakness bilateral lower extremities, balance issues Objective:: Physical exam General: Alert and oriented x3, no acute distress, pleasant and cooperative Lungs: Respirations even and unlabored, symmetrical chest expansion Eyes: PERRL Musculoskeletal: Flexion and extension of lumbar [spine] somewhat guarded secondary to pain, [antalgic gait noted] Neurological: Speech clear, no gross sensory deficit Assessment:: Degenerative disc disease lumbar spine with lumbar radiculopathy symptoms, spinal stenosis with neurogenic claudication symptoms, bilateral knee pain Plan:: We will refill the patient's Rhys Nolan 4 mg 1 tablet p.o. twice daily. We will also schedule patient for mild procedure. Based on the patient's epidurogram with Dr. Ballard, he did feel the patient was an appropriate candidate for mild procedure at L3-L4 L4-L5 bilaterally. Patient is not diabetic and is not on any anticoagulation therapy. We will schedule her for the procedure and plan to see her back afterwards for evaluation of symptoms. She has tried and failed conservative therapies of physical therapy for more than 6 weeks, home stretching and oral medications. The patient was informed by neurosurgery she is not a neurosurgical candidate. Patient has been instructed to contact the clinic with any concerns before the next appointment. Dr. Ballard has reviewed this note and agrees with this plan of care. This note was dictated using voice recognition software and make contain errors or omissions. [facility] History I have reviewed the patient's past medical history: Yes Medical History: Reports:: Anxiety, Arrhythmia, Cancer (OVARIAN, ENDOMETRIAL), Depression, Hyperlipidemia, Hypertension, Osteoporosis Denies:: Diabetes Mellitus Type 1, Diabetes Mellitus Type 2, MRSA, Seizures *Have you ever received a pneumonia vaccine?: No *Have you received a flu vaccine this season?: No Other Medical History: Reports: Arthritis, Cataracts, Fibromyalgia, Osteoporosis, Sinus Problems. Denies: Blood Transfusion Reaction Other Surgeries: Yes: Cancer Surgery, Cardiac Catheterization, Colonoscopy, , Diagnostic Lap, Hysterectomy-Total, Hysterectomy-Partial, Other Amputation
== END ==
PROVIDERS: Visit Provider Clinical Nurse Specialist Family Health
DX: M51.16 Intervertebral disc disorders with radiculopathy, lumbar region (principal); M48.062 Spinal stenosis, lumbar region with neurogenic claudication; M25.561 Pain in right knee; M25.562 Pain in left knee
CPT/HCPCS: 99212; G0463

== ENCOUNTER → 2021-11-05 11:50 | Outpatient (CLI) | payer MEDICARE, BC, SELFPAY | PROVIDERS: PCP Nurse Practitioner Family; Visit Provider Nurse Practitioner | DX: U07.1 COVID-19 (principal) | CPT/HCPCS: C9803; U0003; U0005 ==

== ENCOUNTER → 2021-12-26 11:44 | Outpatient (CLI) | payer MEDICARE, BC, SELFPAY ==
--- NOTE | 2021-12-26 11:51 | XR_ITS ---
FINAL REPORT CLINICAL HISTORY: RIGHT ELBOW PAIN, fall FINDINGS: RIGHT ELBOW 3 views were obtained. There is no acute fracture or dislocation. There is no joint effusion. The joint spaces are intact. There is a small osteophyte along the posterior olecranon. There are hypertrophic changes along the medial joint line. There is no soft tissue abnormality. IMPRESSION: No acute process. Reviewed, Interpreted and Dictated by Amari Alonso MD Transcribed by Jung Escalante Authenticated by Amari Alonso MD on 12/26/2021 12:53:06 PM [facility]
== END ==
PROVIDERS: PCP Nurse Practitioner Family; Visit Provider Nurse Practitioner Family
DX: M25.521 Pain in right elbow (principal)
CPT/HCPCS: 73080

== ENCOUNTER → 2022-01-29 13:21 | Outpatient (CLI) | payer MEDICARE, BC, SELFPAY ==
[2022-01-29 14:17] LABS: Basophils # 0.1 K/mm3 (0-0.2); Basophils % 0.6 % (0.1-2.0); Eosinophils # 0.3 K/mm3 (0.0-0.4); Eosinophils % 1.9 % (0.1-12.0); Hematocrit 37.6 % (37.0-47.0); Hemoglobin 12.2 g/dL (12.2-16.2); Lymphocytes # 2.4 K/mm3 (0.7-4.5); Mean Corpuscular HGB Conc 32.6 g/dL (31.8-35.4); Mean Corpuscular Hemoglobin 29.5 pg (27.0-31.2); Mean Corpuscular Volume 90.5 fl (81-99); Monocytes # 1.4 K/mm3 (0.1-1.0); Neutrophils % 68.5 % (37.0-80.0); Platelet Count 376 K/mm3 (142-424); Red Blood Count 4.15 M/mm3 (4.20-5.40); Red Cell Distribution Width 14.9 % (11.5-17.5); White Blood Count 13.1 K/mm3 (4.8-10.8)
[2022-01-29 15:15] LABS: Anion Gap 10.9 mEq/L (5-15); Blood Urea Nitrogen 19 mg/dl (7-17); Carbon Dioxide 33 mmol/L (22.0-30.0); Chloride 96 mmol/L (98-107); Estimated Glomerular Filt Rate 84 ml/min (>60); GFR (African American) 101 ML/MIN (>60); Glucose 97 mg/dl (74-100); Potassium 3.9 mmoL/L (3.5-5.1); Sodium 136 mmol/L (136-145)
== END ==
PROVIDERS: Visit Provider Anesthesiology
DX: Z01.818 Encounter for other preprocedural examination (principal); Z11.52 Encounter for screening for COVID-19; M51.36 Other intervertebral disc degeneration, lumbar region
CPT/HCPCS: 36415; 80048; 85025; C9803; U0003; U0005

== ENCOUNTER → 2022-02-13 09:55 | Outpatient (POV) | payer MEDICARE, BC, SELFPAY ==
[2022-02-13 10:04] VITALS: BP 154/83; PULSE 62; RESP 18; TEMP 36.7; O2SAT 92; BMI 47.3
--- NOTE | 2022-02-13 10:44 | HMH.PAINSOAP ---
[facility] Pain Management SOAP Note Subjective:: Patient is a pleasant 66-year-old female who is here for medication refill and follow-up. Patient is currently being treated for degenerative disc disease of lumbar spine with lumbar radiculopathy symptoms, spinal stenosis with neurogenic claudication. Patient is being managed with Lyrica 100 mg twice a day. Patient denies any side effects from the medications. We have tried a series of lumbar epidural steroid injections with this patient to provide a temporary relief. We also referred this patient to neurosurgery at who deemed her a nonsurgical candidate. When we did an epidurogram, Dr. Ballard recommends a minimally invasive lumbar decompression procedure bilaterally at L3-L4 and L4-L5. We have scheduled this patient for this procedure for the end of January. In regards to her pain medication, patient is needing refills on her medication. She wants to know if we can increase her Lyrica dose today because she is still hurting a lot in her back. She is also wanting refills on her tizanidine 4 mg nightly. Rates pain as 6 out of 10. [facility] number [id number] with an active morphine equivalent 0. Drug screens have been reviewed and appropriate. Review of Systems: General: No recent weight changes, no fever, no sleep disturbances Respiratory: No cough, no shortness of air, no recurring pulmonary infections Cardiovascular/peripheral vascular: No chest pain, no palpitations, no edema, no shortness of breath Gastrointestinal: No new onset incontinence, normal bowel movements reported Genitourinary: No new onset incontinence Musculoskeletal: Low back pain Psychiatric: [Normal mood/affect] Neurological: [Denies weakness in extremities], [denies balance issues] Objective:: Physical Exam: General: Alert and oriented x3, no acute distress, pleasant and cooperative, [on room air] Lungs: Respirations even and unlabored, symmetrical chest expansion Eyes: PERRL Musculoskeletal: Flexion and extension of lumbar [spine] somewhat guarded secondary to pain, [antalgic gait noted] Neurological: Speech clear, no gross sensory deficit Assessment:: Degenerative disc disease of the lumbar spine with lumbar radiculopathy Spinal stenosis with neurogenic claudication Plan:: Patient presents today with worsening low back pain that radiates to bilateral lower extremities. This gets better with lumbar flexion and worse with extension. She states that she has to lean down on her shopping cart whenever she does her groceries to help ease the pain. We have tried a series of lumbar epidural steroid injections on this patient that provided temporary relief. Her epidurogram shows that she is a good candidate for a minimally invasive lumbar decompression procedure bilaterally at L3-L4 and L4-L5. She is scheduled for this procedure at the end of January. Risks and benefits of the procedure have been explained to the patient. Patient would like to proceed with the procedure. I will change the patient's Lyrica to Lyrica 75 mg 3 times a day. I will refill her tizanidine 4 mg at bedtime. We will provide 1 month of refill. Patient has been instructed to contact the clinic with any concerns before the next appointment. Dr. Ballard has reviewed this note and agrees with this plan of care. This note was dictated using voice recognition software and make contain errors or omissions. [facility] History Medical History: Reports:: Anxiety, Arrhythmia, Depression, Hyperlipidemia, Hypertension, Osteoporosis Denies:: Cancer (ovarian, cervical, endometrial), Diabetes Mellitus Type 1, Diabetes Mellitus Type 2, Internal Pacemaker, MRSA, Seizures *Have you ever received a pneumonia vaccine?: No *Have you received a flu vaccine this season?: No Other Medical History: Reports: Arthritis, Cataracts, Fibromyalgia, Osteoporosis, Sinus Problems. Denies: Blood Transfusion Reaction Other Surgeries: Yes: Cancer Surgery, Cardiac Catheterization, Colonoscopy,
== END ==
PROVIDERS: Visit Provider Student in an Organized Health Care Education/Training Program
DX: M51.16 Intervertebral disc disorders with radiculopathy, lumbar region (principal); M48.00 Spinal stenosis, site unspecified; I73.9 Peripheral vascular disease, unspecified
CPT/HCPCS: 99212; G0463

== ENCOUNTER → 2022-02-25 15:15 | Outpatient (CLI) | payer MEDICARE, BC, SELFPAY ==
[2022-02-25 16:15] LABS: Basophils # 0.1 K/mm3 (0-0.2); Basophils % 0.6 % (0.1-2.0); Eosinophils # 0.4 K/mm3 (0.0-0.4); Eosinophils % 4.5 % (0.1-12.0); Hematocrit 43.7 % (37.0-47.0); Hemoglobin 13.9 g/dL (12.2-16.2); Lymphocytes # 3.4 K/mm3 (0.7-4.5); Lymphocytes % 42.5 % (10-50); Mean Corpuscular HGB Conc 31.7 g/dL (31.8-35.4); Mean Corpuscular Hemoglobin 28.4 pg (27.0-31.2); Mean Corpuscular Volume 89.4 fl (81-99); Mean Platelet Volume 6.9 fl (7.4-10.4); Monocytes # 0.5 K/mm3 (0.1-1.0); Monocytes % 6.4 % (1.7-9.3); Neutrophils # 3.6 K/mm3 (1.8-7.8); Neutrophils % 45.9 % (37.0-80.0); Platelet Count 385 K/mm3 (142-424); Red Blood Count 4.89 M/mm3 (4.20-5.40); Red Cell Distribution Width 14.6 % (11.5-17.5); White Blood Count 7.9 K/mm3 (4.8-10.8)
[2022-02-25 16:29] LABS: Chloride 98 mmol/L (98-107); Sodium 139 mmol/L (136-145)
[2022-02-25 16:30] LABS: Potassium 3.4 mmoL/L (3.5-5.1)
[2022-02-25 16:32] LABS: Blood Urea Nitrogen 11 mg/dl (7-17); Estimated Glomerular Filt Rate 100 ml/min (>60); GFR (African American) 121 ML/MIN (>60)
[2022-02-25 16:33] LABS: Anion Gap 11.4 mEq/L (5-15); Calcium 9.9 mg/dl (8.4-10.2); Carbon Dioxide 33 mmol/L (22.0-30.0); Glucose 147 mg/dl (74-100)
== END ==
PROVIDERS: Visit Provider Anesthesiology
DX: Z01.812 Encounter for preprocedural laboratory examination (principal); Z11.52 Encounter for screening for COVID-19; M51.36 Other intervertebral disc degeneration, lumbar region
CPT/HCPCS: 36415; 80048; 85025; C9803; U0003; U0005

== ENCOUNTER 2022-02-28 06:13 | Day surgery (SDC) | payer MEDICARE, BC, SELFPAY ==
[2022-01-29 09:27] VITALS: BMI 45.7
[2022-02-28] VITALS (8 sets, daily range): BP systolic 127–166; BP diastolic 59–73; PULSE 59–72; RESP 16–18; TEMP 36.2–36.9; O2SAT 93–100
--- NOTE | 2022-02-28 07:14 | P.PN_ITS ---
[facility] Anesthesia Checklist - Patient Identification Patient Identification: Arm Band - Structural Data Admitted From: Home Planned Operative Procedure/s: MILD Procedure at L3/4, L4/5 Consent for Planned Operative Procedure(s) Verified: Yes Verified Documents: Surgical Consent, History and Physical - NPO Status Verified Time NPO: 00:00 - Additional verifications Anesthesia Reactions: No Hx Blood Transfusions: No Blood Transfusion Reaction: No - Airway Assessment C-Spine Mobility Assessed: Yes (mp2) TMJ Mobility Assessed: Yes Dentition: Good Dentition - Neurological Assessment Level of Consciousness: Awake, Alert - Anesthesia Plan Anesthesia Risk discussed: Yes Anesthesia Plan: Verified ASA Class: III Anesthesia Type: MAC [facility] History I have reviewed the patient's past medical history: Yes Medical History: Reports:: Anxiety, Arrhythmia, Depression, Hyperlipidemia, Hypertension, Osteoporosis Denies:: Cancer (ovarian, cervical, endometrial), Diabetes Mellitus Type 1, Diabetes Mellitus Type 2, Internal Pacemaker, MRSA, Seizures *Have you ever received a pneumonia vaccine?: No *Have you received a flu vaccine this season?: No Other Medical History: Reports: Arthritis, Cataracts, Fibromyalgia, Osteoporosis, Sinus Problems. Denies: Blood Transfusion Reaction Anesthesia experience/problems:: nac Laterality Cases: Bilateral: Cataract, Total Knee Replacement Other Surgeries: Yes: Cancer Surgery, Cardiac Catheterization, Colonoscopy, C- section, Diagnostic Lap, Hysterectomy-Total, Hysterectomy-Partial, Other. No: Pacemaker Amputation: No Fractures: No - *Social History Smoking Status: Never smoker Alcohol Intake: never Alcohol Intake Frequency:: other Substance Use Type: denies use *Occupational Status:: retired Housing: house Household Members: spouse *Travel in the last 8 weeks: None - Psychiatric History Pschychiatric History:: Reports:: Anxiety, Depression Family Hx:: No significant family history
--- NOTE | 2022-02-28 09:10 | P.OP_ITS ---
Date of procedure: 02/28/22 Pre-op Diagnosis:: Degenerative disc disease of lumbar spine with lumbar spinal stenosis and neurogenic claudication symptoms Post-op Diagnosis:: Same Procedure performed:: Minimally invasive lumbar decompression bilateral L3-4 L4-L5 Surgeon:: Chinedu Ballard MD FILTER WASHER AND PRESSER:: Christian Ontiveros Anesthesia: MAC Estimated blood loss (mL): 1 Clinical Note:: Patient is a pleasant 66-year-old white female who we are treating for degenerative disc disease of lumbar spine with lumbar radiculopathy symptoms and lumbar spinal stenosis with neurogenic claudication symptoms. She has been seen at [facility] and is not a surgical candidate. She does have significant stenosis based on MRI and epidurogram. We will do bilateral minimally invasive lumbar decompression L3-L4 and L4-5 today. Operative findings:: None Operative note:: Informed consent was obtained and the risk and benefits of the procedure was explained to the patient. The patient was taken to the operating room and placed prone on the procedure table. The patient was prepped and draped in sterile fashion. C-arm fluoroscopy was used to view the lumbar spine. The skin and subcutaneous tissues were anesthetized using lidocaine. A epidural needle was inserted and advanced into the L3-L4 interspace. The skin and subcutaneous tissues again were anesthetized using lidocaine. An incision was made and a access trocar was inserted and advanced to contact at the superior aspect of the L4 lamina on the left side. And a contralateral oblique view the side was viewed. Using a bone rongeur and tissue sculptor we debulked bone from the L3- L4 and L4-L5 interspace on the left side. We then used the tissue sculptor to debulk ligament at the L3-L4 and L4-L5 interspace on the left side. We then moved over to the right side and debulked bone and ligament from L3-L4 and L4-L5 on the right side. There is opening of the stenosis at L3-L4 and L4-L5 bilaterally. The access trocar was removed.We injected 80 mg Depo-Medrol through the epidural needle. The epidural needle was removed and dressings were placed. This encounter for exam is for normal comparison and control in a clinical research program Patient was taken to recovery in stable condition. Patient was discharged home neurologically intact and with good relief of pain symptoms. The patient has significant degenerative changes with bone spurs throughout the L3-L4 and L4-L5 interspace. If she does not get adequate relief from this procedure I do believe she would be a good candidate for spinal cord stimulation. Plan and disposition: We will follow-up with this patient in 2 weeks. Will reevaluate symptoms at that time. Condition: stable Disposition: PACU Complications:: None
--- NOTE | 2022-02-28 10:20 | ECG_ITS ---
APPROVED REPORT Exam: Resting ECG HR:60 bpm ECG Measurements Heart Rate 60 AXES MO 166 P 52 QRSd 98 QRS 29 QT 429 T 29 QTc 430 Conclusion SINUS RHYTHM LOW QRS VOLTAGE IN PRECORDIAL LEADS [QRS DEFLECTION < 1.0 mV IN CHEST LEADS] BORDERLINE ECG UNCONFIRMED REPORT Electronically signed by : Darrian Mcwilliams MD 02/28/2022 17:03:32
== END 2022-02-28 11:10 | disposition home or self-care (01) ==
LOC: OR 06:14
PROVIDERS: PCP Nurse Practitioner Family; Visit Provider Anesthesiology
DX: M51.36 Other intervertebral disc degeneration, lumbar region (principal); M48.062 Spinal stenosis, lumbar region with neurogenic claudication; Z00.6 Encounter for examination for normal comparison and control in clinical research program; F41.9 Anxiety disorder, unspecified; M81.0 Age-related osteoporosis without current pathological fracture; E78.5 Hyperlipidemia, unspecified; I10 Essential (primary) hypertension; I49.9 Cardiac arrhythmia, unspecified; F32.A Depression, unspecified; M19.90 Unspecified osteoarthritis, unspecified site; Z88.6 Allergy status to analgesic agent; Z88.8 Allergy status to other drugs, medicaments and biological substances
CPT/HCPCS: 0275T; 93005; 94640; 96374; C1889; J1040; J2704

== ENCOUNTER → 2022-03-17 11:39 | Outpatient (POV) | payer MEDICARE, BC, SELFPAY ==
[2022-03-17 12:10] VITALS: BP 135/83; PULSE 83; RESP 18; TEMP 36.6; O2SAT 95; BMI 47.3
--- NOTE | 2022-03-17 15:46 | HMH.PAINSOAP ---
[facility] Pain Management SOAP Note Subjective:: Patient is a pleasant 66-year-old female who presents today for follow-up after a minimally invasive lumbar decompression procedure bilaterally at L3-L4 and L4-L5 on February 28, 2022. Patient is currently being treated for degenerative disc disease of lumbar spine with lumbar radiculopathy symptoms, lumbar spinal stenosis with neurogenic claudication symptoms. After the procedure, patient states that she has 70 to 80% relief of symptoms in her back. She has been able to increase her activity since the procedure. Denies any issues after procedure. Patient is also being managed with Lyrica 75 mg 3 times a day and Zanaflex 4 mg at bedtime. I did recently change the patient to Lyrica 75 mg 3 times a day from Lyrica 100 mg twice a day. Patient states that 100 mg twice a day was not providing enough relief. Today, patient states that the Lyrica 75 mg is not touching her neuropathic pain. She wants to know if we can increase this dose. She is also wanting refills on her Zanaflex. She rates her pain today as 7 out of 10. Review of Systems: General: No recent weight changes, no fever, no sleep disturbances Respiratory: No cough, no shortness of air, no recurring pulmonary infections Cardiovascular/peripheral vascular: No chest pain, no palpitations, no edema, no shortness of breath Gastrointestinal: No new onset incontinence, normal bowel movements reported Genitourinary: No new onset incontinence Musculoskeletal: Low back pain, peripheral neuropathic pain Psychiatric: [Normal mood/affect] Neurological: [Denies weakness in extremities], [denies balance issues] Objective:: Physical Exam: General: Alert and oriented x3, no acute distress, pleasant and cooperative Lungs: Respirations even and unlabored, symmetrical chest expansion Eyes: PERRL Musculoskeletal: Flexion and extension of lumbar [spine] somewhat guarded secondary to pain, [antalgic gait noted] Neurological: Speech clear, no gross sensory deficit Assessment:: Degenerative disc disease of the lumbar spine with lumbar radiculopathy symptoms, lumbar spinal stenosis with neurogenic claudication symptoms, peripheral neuropathy Plan:: Patient has been doing well overall after the minimally invasive lumbar decompression bilaterally at L3-L4 and L4-L5. She is still complaining of peripheral pain especially around her lower right leg. She is wanting to increase her Lyrica. We will increase her Lyrica to Lyrica 100 mg 3 times a day. I will also provide the patient refills on her Zanaflex 4 mg at bedtime. Patient does have a very small incision around her low back from the mild procedure. This is healing well. There is no drainage, erythema, swelling. We will follow-up with this patient in 1 month. Patient has been instructed to contact the clinic with any concerns before the next appointment. Dr. Ballard has reviewed this note and agrees with this plan of care. This note was dictated using voice recognition software and make contain errors or omissions. [facility] History Medical History: Reports:: Anxiety, Arrhythmia, Depression, Hyperlipidemia, Hypertension, Osteoporosis Denies:: Cancer (ovarian, cervical, endometrial), Diabetes Mellitus Type 1, Diabetes Mellitus Type 2, Internal Pacemaker, MRSA, Seizures *Have you ever received a pneumonia vaccine?: No *Have you received a flu vaccine this season?: No Other Medical History: Reports: Arthritis, Cataracts, Fibromyalgia, Osteoporosis, Sinus Problems. Denies: Blood Transfusion Reaction Other Surgeries: Yes: Cancer Surgery, Cardiac Catheterization, Colonoscopy, , Diagnostic Lap, Hysterectomy-Total, Hysterectomy-Partial, Other. No: Pacemaker Amputation: No Fractures: No - *Social History Smoking Status: Never smoker Alcohol Intake: never Alcohol Intake Frequency:: other Substance Use Type: denies use *Occupational Status:: retired Housing: house Household Members: spouse *Travel in the [place]
== END ==
PROVIDERS: Visit Provider Student in an Organized Health Care Education/Training Program
DX: M51.16 Intervertebral disc disorders with radiculopathy, lumbar region (principal); M48.062 Spinal stenosis, lumbar region with neurogenic claudication; G62.9 Polyneuropathy, unspecified
CPT/HCPCS: 99212; G0463

== ENCOUNTER → 2022-04-15 11:41 | Outpatient (POV) | payer MEDICARE, BC, SELFPAY ==
--- NOTE | 2022-04-15 12:21 | P.CONS_ITS ---
[facility] Pain Management SOAP Note Subjective:: Patient is a pleasant 66-year-old female that presents today to our clinic for 1 month follow-up after receiving minimally invasive lumbar decompression bilaterally L3-4, L4-5. Patient describes her low back pain as constant, dull, aching. However, she is overall better than she was prior to the procedure. She reports 90% of her bilateral leg radicular symptoms have subsided. Still has soreness in bilateral feet at times. She rates her pain 5/10. Patient is currently being managed with Lyrica grams 1 p.o. 3 times daily. She is asking for an increase in that medication. I think this is appropriate. We will increase to Lyrica to 150 mg 1 p.o. 3 times daily. She is also on Zanaflex 4 mg at bedtime. On reviewing her Raoul #[id number] and it is appropriate. She seems to be doing quite well overall. Patient inquiring regarding lumbar epidural steroid injection. She has had these in the past with significant improvement. I think this is appropriate. We will set it up for her today. Objective:: Patient is awake alert [place] x3. In no acute distress. Flexion-extension lumbar spine somewhat guarded secondary to pain. Deep tendon reflexes upper and lower extremities normal. Motor strength upper and lower extremities normal. There is no gross sensory deficit. Gait is antalgic. Assessment:: Degenerative disc disease lumbar spine. Lumbar radiculopathy symptoms. Lumbar spinal stenosis. Plan:: Patient will return to the injection clinic for lumbar epidural steroid injection. [facility] History Medical History: Reports:: Anxiety, Arrhythmia, Depression, Hyperlipidemia, Hypertension, Osteoporosis Denies:: Cancer (ovarian, cervical, endometrial), Diabetes Mellitus Type 1, Diabetes Mellitus Type 2, Internal Pacemaker, MRSA, Seizures *Have you ever received a pneumonia vaccine?: No *Have you received a flu vaccine this season?: No Other Medical History: Reports: Arthritis, Cataracts, Fibromyalgia, Osteoporosis, Sinus Problems. Denies: Blood Transfusion Reaction Other Surgeries: Yes: Cancer Surgery, Cardiac Catheterization, Colonoscopy, C- section, Diagnostic Lap, Hysterectomy-Total, Hysterectomy-Partial, Other. No: Pacemaker Amputation: No Fractures: No - *Social History Smoking Status: Never smoker Alcohol Intake: never Alcohol Intake Frequency:: other Substance Use Type: denies use *Occupational Status:: retired Housing: house Household Members: spouse *Travel in the last 8 weeks: Inside the [place] - Psychiatric History Pschychiatric History:: Reports:: Anxiety, Depression Family Hx:: No significant family history
[2022-04-15 12:59] VITALS: BP 157/84; PULSE 66; RESP 18; TEMP 36.6; O2SAT 98; BMI 47.3
== END ==
PROVIDERS: Visit Provider Nurse Anesthetist, Certified Registered
DX: M51.16 Intervertebral disc disorders with radiculopathy, lumbar region (principal); M48.061 Spinal stenosis, lumbar region without neurogenic claudication; M19.90 Unspecified osteoarthritis, unspecified site
CPT/HCPCS: 99212; G0463

== ENCOUNTER → 2022-04-21 15:14 | Outpatient (CLI) | payer MEDICARE, BC, SELFPAY ==
[2022-04-21 15:59] LABS: Hemoglobin A1C 6.3 % (4.0-6.0)
[2022-04-21 17:34] LABS: Vitamin B12 330 pg/mL (239-931)
[2022-04-21 18:12] LABS: Folate 8.01 ng/mL
== END ==
PROVIDERS: PCP Nurse Practitioner Family; Visit Provider Specialist
DX: R73.9 Hyperglycemia, unspecified (principal)
CPT/HCPCS: 36415; 82607; 82746; 83036

== ENCOUNTER 2022-05-02 13:54 | Day surgery (SDC) | payer MEDICARE, BC, SELFPAY ==
[2022-05-02 14:28] VITALS: BP 150/75; PULSE 69; RESP 18; TEMP 36.7; O2SAT 97; BMI 49.4
[2022-05-02 15:01] VITALS: BP 145/78; PULSE 79; RESP 18; O2SAT 98
[2022-05-02 15:05] VITALS: BP 140/74; PULSE 89; RESP 18; O2SAT 98
--- NOTE | 2022-05-02 15:08 | HMH.PMPROC ---
- Procedure Date: 05/02/22 Time: 15:08 Anesthesiologist:: Chinedu Ballard MD Complications:: None Pre-procedure Diagnosis:: Degenerative disc disease of lumbar spine with lumbar radiculopathy symptoms Post-procedure Diagnosis:: Same Indications for Procedure:: Patient is a pleasant 67-year-old white female who we have been treating for low back pain with lumbar radiculopathy symptoms and spinal stenosis with neurogenic claudication symptoms. She has had minimally invasive lumbar decompression which is helped significantly. She has some residual back pain. We will do a lumbar pleural steroid injection under fluoroscopy today to see if this will help with her pain symptoms. Procedure Details:: Informed consent was obtained and the risk and benefits of the procedure was explained to the patient. The patient was taken to the procedure room. The patient was placed prone on the procedure table. The patient was prepped and draped in sterile fashion. C-arm fluoroscopy was used to view the lumbar spine. Skin and subcutaneous tissues were anesthetized using lidocaine. I placed an 18-gauge epidural needle and advanced into the L4-L5 interspace using fluoroscopic guidance and [id number] to air. After confirmation of needle placement in the epidural space with dye I injected 2 mL of lidocaine 1.5% with Depo-Medrol 80 mg. Patient tolerated the procedure well with no complications. Plan and Disposition:: We will follow-up with her in 2 weeks. Will reevaluate symptoms at that time.
[2022-05-02 15:26] VITALS: BP 145/79; PULSE 58; RESP 20; O2SAT 96
== END 2022-05-02 15:27 | disposition home or self-care (01) ==
LOC: SC.PAINP 13:55
PROVIDERS: PCP Nurse Practitioner Family; Visit Provider Anesthesiology
DX: M51.16 Intervertebral disc disorders with radiculopathy, lumbar region (principal); M48.062 Spinal stenosis, lumbar region with neurogenic claudication
CPT/HCPCS: 62323; J1040; Q9966

== ENCOUNTER → 2022-05-29 10:18 | Outpatient (POV) | payer MEDICARE, BC, SELFPAY ==
[2022-05-29 10:45] VITALS: BP 135/65; PULSE 60; RESP 20; TEMP 36.4; O2SAT 97; BMI 48.4
--- NOTE | 2022-05-29 11:28 | HMH.PAINSOAP ---
[facility] Pain Management SOAP Note Subjective:: Patient is a pleasant 67-year-old female who presents today for follow-up. We are currently treating the patient for degenerative disc disease of lumbar spine with lumbar radiculopathy symptoms. We have done injective therapy in the past for this patient and also done a MILD procedure. Rates her pain a 6 out of 10. She states her pain is in her low back area and into her bilateral knees. She describes this pain as an ache and throbbing sensation that is constant but worse with increased activity. She states rest does make her pain better however it is also weather dependent. Patient has had bilateral knee replacements in the past. She states she has also had intra-articular knee injections in the past with minimal relief. Her last injection of a LESI at L4-L5 gave her about 50% of relief and lasted about 1 week. She states that her feet are doing better at today's visit. She states she is gotten new with a better support. She does currently use a compounding cream with minimal relief. She is currently managed with Lyrica 150 mg 3 times a day. She does states that this medication is working well for her and helping manage her pain. She also is taking Zanaflex 4 mg at bedtime. She states this medication also works well. She is asking for refills on both of these medications at today's visit. Her Raoul is [id number]. It has been reviewed and appropriate. Review of Systems: General: No recent weight changes, no fever, no sleep disturbances Respiratory: No cough, no shortness of air, no recurring pulmonary infections Cardiovascular/peripheral vascular: No chest pain, no palpitations, no edema, no shortness of breath Gastrointestinal: No new onset incontinence, normal bowel movements reported Genitourinary: No new onset incontinence Musculoskeletal: Low back pain, bilateral knee pain Psychiatric: [Normal mood/affect] Neurological: [Denies weakness in extremities], [denies balance issues] Objective:: Physical Exam: General: Alert and oriented x3, no acute distress, pleasant and cooperative Lungs: Respirations even and unlabored, symmetrical chest expansion Eyes: PERRL Musculoskeletal: Flexion and extension of lumbar [spine] somewhat guarded secondary to pain, [antalgic gait noted] Neurological: Speech clear, no gross sensory deficit Assessment:: Degenerative disc disease of lumbar spine with lumbar radiculopathy symptoms, bilateral knee pain Plan:: Patient is having significant pain in her bilateral knees at today's visit. She had point tenderness more on her right knee during today's exam. I have discussed with the patient regarding having a genicular nerve block and RFA in the future if she does get significant relief from these blocks. Risk and benefits were reviewed with the patient. She would like to proceed forward with this injection. I will also refill the patient's Zanaflex at today's visit we will schedule the patient for a right genicular nerve block. Patient has been instructed to contact the clinic with any concerns before the next appointment. Dr. Ballard has reviewed this note and agrees with this plan of care. This note was dictated using voice recognition software and make contain errors or omissions. [facility] History I have reviewed the patient's past medical history: Yes Medical History: Reports:: Anxiety, Arrhythmia, Depression, Hyperlipidemia, Hypertension, Osteoporosis Denies:: Cancer, Diabetes Mellitus Type 1, Diabetes Mellitus Type 2, Internal Pacemaker, MRSA, Seizures *Have you ever received a pneumonia vaccine?: No *Have you received a flu vaccine this season?: No Other Medical History: Reports: Arthritis, Cataracts, Fibromyalgia, Osteoporosis, Sinus Problems. Denies: Blood Transfusion Reaction Other Surgeries: Yes: Cancer Surgery, Cardiac Catheterization, Colonoscopy, , Diagnostic Lap, Hysterectomy-Total, Hysterectomy-Partial, Other. No: Pacemaker Amputation: No F
== END ==
PROVIDERS: Visit Provider Student in an Organized Health Care Education/Training Program
DX: M51.16 Intervertebral disc disorders with radiculopathy, lumbar region (principal); M25.561 Pain in right knee; M25.562 Pain in left knee
CPT/HCPCS: 99212; G0463

== ENCOUNTER 2022-06-13 08:41 | Day surgery (SDC) | payer MEDICARE, BC, SELFPAY ==
[2022-06-13 08:55] VITALS: BP 146/59; PULSE 59; TEMP 36.7; O2SAT 98; BMI 46.7
[2022-06-13 09:36] VITALS: BP 131/60; PULSE 56; RESP 20; O2SAT 96
--- NOTE | 2022-06-13 10:53 | HMH.PMPROC ---
- Procedure Date: 06/13/22 Time: 10:53 Anesthesiologist:: Jesse Espino CRNA Complications:: None Pre-procedure Diagnosis:: Chronic right knee pain. Post-procedure Diagnosis:: Same Indications for Procedure:: This patient is a pleasant 67-year-old female that comes our injection clinic today for right genicular knee injection. Patient has had right total knee replacement 7 years ago. Continued to have chronic right knee pain. She rates the pain 7/10. Procedure Details:: Right knee genicular block Informed consent was obtained and the risk and benefits of the procedure was explained to the patient. The patient was taken to the procedure room. The left knee was prepped using ChloraPrep. I placed 22-gauge needles into the area of the right superior medial genicular nerve, right superior lateral genicular nerve and right inferior medial genicular nerve. Needle placement was confirmed in AP and lateral views with dye. We then injected bupivacaine 0.25% 3 mL's and Depo-Medrol 25 mg into each area of the right superior medial genicular nerve, right superior lateral genicular nerve and right inferior medial genicular nerve. Patient tolerated the procedure well with no complications. Plan and Disposition:: We will follow-up with her in 2 weeks. Will reevaluate symptoms at that time. Plan and Disposition:: Patient was discharged without incident.
== END 2022-06-13 09:37 | disposition home or self-care (01) ==
LOC: SC.PAINP 08:42
PROVIDERS: PCP Nurse Practitioner Family; Visit Provider Nurse Anesthetist, Certified Registered
DX: M25.561 Pain in right knee (principal); G89.29 Other chronic pain
CPT/HCPCS: 64454; J1040

== ENCOUNTER → 2022-06-30 09:29 | Outpatient (POV) | payer MEDICARE, BC, SELFPAY ==
[2022-06-30 09:46] VITALS: BP 146/63; PULSE 65; RESP 18; TEMP 36.6; O2SAT 97; BMI 47.9
--- NOTE | 2022-06-30 09:52 | EXP.PAIN.SOA ---
[facility] Pain Management SOAP Note Subjective:: Patient is a pleasant 67-year-old female that presents today for follow-up of right genicular nerve block on 06/13/2022. We are currently treating the patient for degenerative disc disease of lumbar spine with lumbar radiculopathy symptoms, bilateral knee pain. Patient states she has had 100% improvement in her right knee pain since having this injection. She states she has been able to increase her activity significantly. Patient is rating her pain today a 6 out of 10 stating it is primarily in her low back. Patient denies any new trauma or injury. She denies any change to the location or type of pain she experiences. Patient has had injective therapy and a MT LD procedure in the past. Patient also has a history of bilateral knee arthroplasty. Patient is currently managed with Lyrica 150 mg 3 times a day. Patient denies any side effects from this medication. She states it is working well. She is also taking Zanaflex 4 mg at bedtime. She would like a refill on both of these medications at today's visit. Her Raoul is [id number]. It has been reviewed and appropriate. Review of Systems: General: No recent weight changes, no fever, no sleep disturbances Respiratory: No cough, no shortness of air, no recurring pulmonary infections Cardiovascular/peripheral vascular: No chest pain, no palpitations, no edema, no shortness of breath Gastrointestinal: No new onset incontinence, normal bowel movements reported Genitourinary: No new onset incontinence Musculoskeletal: Low back pain Psychiatric: [Normal mood/affect] Neurological: [Denies weakness in extremities], [denies balance issues] Objective:: Physical Exam: General: Alert and oriented x3, no acute distress, pleasant and cooperative Lungs: Respirations even and unlabored, symmetrical chest expansion Eyes: PERRL Musculoskeletal: Flexion and extension of lumbar [spine] somewhat guarded secondary to pain, [antalgic gait noted] Neurological: Speech clear, no gross sensory deficit Assessment:: Degenerative disc disease of lumbar spine with lumbar radiculopathy symptoms, bilateral knee pain Plan:: Patient has had significant improvement in her right knee pain symptoms since having the genicular nerve block. I have discussed with the patient regarding having a repeat injection at a later date as well as right knee RFA. Risk and benefits of these procedures were explained to the patient. She would like to go ahead and schedule her repeat right genicular nerve block however she would like to make it for around the beginning of August due to some issues at home. I will reorder the patient's Zanaflex 4 mg at bedtime and provide a 1 month supply. I will also refill the patient's Lyrica 150 mg 3 times a day and provide a 1 month supply. Patient will be scheduled for a right genicular nerve block at today's visit. Patient has been instructed to contact the clinic with any concerns before the next appointment. Dr. Ballard has reviewed this note and agrees with this plan of care. This note was dictated using voice recognition software and make contain errors or omissions. PFSH PFSH Social History Smoking Status: Never smoker alcohol intake: never substance use type: denies use current occupational status: other Travel in the last 8 weeks: None household members: spouse housing: house caffeine: Yes
== END | disposition home or self-care (01) ==
PROVIDERS: PCP Nurse Practitioner Family; Visit Provider Nurse Practitioner Family
DX: M51.16 Intervertebral disc disorders with radiculopathy, lumbar region (principal); M25.561 Pain in right knee; M25.562 Pain in left knee
CPT/HCPCS: 99212; G0463

== ENCOUNTER → 2022-07-08 09:53 | Outpatient (CLI) | payer MEDICARE, BC, SELFPAY | PROVIDERS: PCP Nurse Practitioner Family; Visit Provider Specialist | DX: R06.02 Shortness of breath (principal) | CPT/HCPCS: 94762 ==

== ENCOUNTER 2022-08-05 08:24 | Day surgery (SDC) | payer MEDICARE, BC, SELFPAY ==
[2022-08-05 08:37] VITALS: BP 153/67; PULSE 70; RESP 20; TEMP 36.8; O2SAT 96; BMI 48.4
[2022-08-05 08:49] VITALS: BP 142/92; PULSE 80; RESP 18; O2SAT 99
[2022-08-05 08:50] VITALS: BP 142/92; PULSE 80; RESP 18; O2SAT 99
[2022-08-05 09:17] VITALS: BP 143/63; PULSE 71; RESP 20
--- NOTE | 2022-08-05 09:23 | EXP.PAIN.PRO ---
Procedure Date: 08/05/22 Time: 09:00 Anesthesiologist:: Jesse Espino CRNA Complications:: None Pre-procedure Diagnosis:: Chronic right knee pain Post-procedure Diagnosis:: Chronic right knee pain Indications for Procedure:: Very pleasant 67-year-old female that comes today for repeat right genicular nerve block. Patient had 6 to 8 weeks of relief after her first injection. She rates her pain 7/10 today. Patient had right knee replacement 2014. She has had pain ever since. Procedure Details:: Pre-procedure Diagnosis:: Right knee pain with degenerative osteoarthritis Post-procedure Diagnosis: Same Indications for Procedure: Right knee genicular block Informed consent was obtained and the risk and benefits of the procedure was explained to the patient. The patient was taken to the procedure room. The left knee was prepped using ChloraPrep. I placed 22-gauge needles into the area of the right superior medial genicular nerve, right superior lateral genicular nerve and right inferior medial genicular nerve. Needle placement was confirmed in AP and lateral views with dye. We then injected bupivacaine 0.25% 3 mL's and Depo-Medrol 25 mg into each area of the right superior medial genicular nerve, right superior lateral genicular nerve and right inferior medial genicular nerve. Patient tolerated the procedure well with no complications. Plan and Disposition:: We will follow-up with her in 2 weeks. Will reevaluate symptoms at that time. Plan and Disposition:: Patient was discharged essentially without pain in the right knee.
== END 2022-08-05 09:18 | disposition home or self-care (01) ==
LOC: SC.PAINP 08:25
PROVIDERS: PCP Nurse Practitioner Family; Visit Provider Nurse Anesthetist, Certified Registered
DX: M17.11 Unilateral primary osteoarthritis, right knee (principal)
CPT/HCPCS: 64454; J1040

== ENCOUNTER 2022-09-04 22:04 | Emergency (ER) | payer MEDICARE, BC, SELFPAY ==
[2022-09-04 22:05] VITALS: BP 109/58; PULSE 53; RESP 14; TEMP 36.6; O2SAT 96; BMI 47.5
--- NOTE | 2022-09-04 22:06 | ECG_ITS ---
APPROVED REPORT Exam: Resting ECG HR:55 bpm ECG Measurements Heart Rate 55 AXES MD 178 P 61 QRSd 88 QRS 52 QT 438 T 66 QTc 428 Conclusion SINUS BRADYCARDIA BORDERLINE ECG UNCONFIRMED REPORT Electronically signed by : Darrian Mcwilliams MD 09/05/2022 13:28:10
[2022-09-04 22:25] LABS: Basophils # 0.1 K/mm3 (0-0.2); Basophils % 1.5 % (0.1-2.0); Eosinophils # 0.3 K/mm3 (0.0-0.4); Eosinophils % 3.7 % (0.1-12.0); Hematocrit 39.3 % (37.0-47.0); Hemoglobin 12.6 g/dL (12.2-16.2); Lymphocytes # 3.3 K/mm3 (0.7-4.5); Lymphocytes % 40.3 % (10-50); Mean Corpuscular HGB Conc 32.1 g/dL (31.8-35.4); Mean Corpuscular Hemoglobin 29.3 pg (27.0-31.2); Mean Corpuscular Volume 91.4 fl (81-99); Mean Platelet Volume 7.3 fl (7.4-10.4); Monocytes # 0.6 K/mm3 (0.1-1.0); Monocytes % 7.9 % (1.7-9.3); Neutrophils # 3.8 K/mm3 (1.8-7.8); Neutrophils % 46.7 % (37.0-80.0); Platelet Count 384 K/mm3 (142-424); Red Cell Distribution Width 15.2 % (11.5-17.5); White Blood Count 8.1 K/mm3 (4.8-10.8)
[2022-09-04 22:27] VITALS: BMI 54.8
[2022-09-04 22:27] LABS: Chloride 94 mmol/L (98-107); Sodium 134 mmol/L (136-145)
[2022-09-04 22:28] LABS: Potassium 3.9 mmoL/L (3.5-5.1)
[2022-09-04 22:30] VITALS: BP 109/58; PULSE 51; O2SAT 96
[2022-09-04 22:30] LABS: Alanine Aminotransferase 17 U/L (12-78); Alkaline Phosphatase 81 U/L (38-126); Anion Gap 12.9 mEq/L (5-15); Aspartate Amino Transferase 30 U/L (14-36); Bilirubin,Total 0.5 mg/dl (0.2-1.3); Blood Urea Nitrogen 22 mg/dl (7-17); Calcium 8.9 mg/dl (8.4-10.2); Carbon Dioxide 31 mmol/L (22.0-30.0); Creatinine Clearance Estimated 43 mL/min (50-200); Estimated Glomerular Filt Rate 72 ml/min (>60); GFR (African American) 87 ML/MIN (>60); Glucose 174 mg/dl (74-100); Magnesium 1.5 mg/dl (1.6-2.3)
[2022-09-04 22:31] LABS: Albumin Level 3.7 g/dl (3.5-5.0); Albumin/Globulin Ratio 1.3 (1.1-1.8); Globulin 2.9 g/dL (1.3-3.2); Total Protein,Serum 6.6 g/dl (6.3-8.2)
[2022-09-04 22:37] LABS: Coronavirus 19, PCR Not Detected (NotDetected); Influenza A, PCR Not Detected (NotDetected); Influenza B, PCR Not Detected (NotDetected)
[2022-09-04 22:37] LABS: Microscopic, Urine URINE MICROSCOPIC (MICROSCOPIC)
[2022-09-04 22:42] LABS: Appearance,Urine CLEAR (Clear); Bilirubin,Urine Negative (Negative); Blood, Urine Negative (Negative); Color,Urine YELLOW (Yellow); Glucose,Urine (UA) Negative (Negative); Ketones,Urine Negative (Negative); Leukocyte Esterase,Urine Negative (Negative); Nitrate,Urine Negative (Negative); PH,Urine 6.5 (5.0-8.5); Protein,Urine Negative (Negative); Urobilinogen,Urine 0.2 EU/dl (0.2)
[2022-09-04 22:42] LABS: Acetaminophen < 10 ug/ml (10-30); Ethyl Alcohol < 10 mg/dl (0-10); Salicylate < 1.0 mg/dL (2.0-20.0)
[2022-09-04 22:45] LABS: POC Glucose,Bedside 177 (70-110)
[2022-09-04 22:53] LABS: Barbiturates Screen,Urine Negative ng/ml (<200); Benzodiazepines Screen,Urine Negative ng/ml (<200)
[2022-09-04 22:54] LABS: Amphetamine/Metha Screen,Urine Negative ng/ml (<1000)
[2022-09-04 22:55] LABS: Cocaine Screen,Urine Negative ng/ml (<300); Methadone Screen,Urine Negative ng/ml (<300)
[2022-09-04 22:56] LABS: Cannabinoid Screen,Urine Negative ng/ml (<50); Opiate Screen,Urine Negative ng/ml (<300)
[2022-09-04 22:57] LABS: Phencyclidine Screen,Urine Negative ng/ml (<25)
[2022-09-04 23:01] VITALS: BP 112/53; PULSE 54; O2SAT 98
--- NOTE | 2022-09-04 23:15 | HMH.EDPSYCH ---
Discharge Plan Disposition Chief Complaint: Psychiatric Symptoms Prescriptions Prescriptions: No Action potassium chloride 20 mEq tablet,ER particles/crystals 20 meq PO DAILY 90 Days Qty: 90 hydrochlorothiazide 50 mg tablet 50 mg PO DAILY 90 Days Qty: 90 diclofenac sodium [Voltaren] 1 % gel 4 gm TP QID Qty: 30 2RF Rx Instructions: apply to single knee, ankle, foot; gently massage into area; for foot includes sole/toes/top of foot bupropion HCl 150 mg tablet extended release 24 hr 150 mg PO DAILY amlodipine 10 mg tablet 10 mg PO DAILY Label Comments: TAKE ONE TABLET BY MOUTH EVERY DAY metoprolol succinate 100 mg tablet extended release 24 hr 100 mg PO DAILY Label Comments: TAKE ONE TABLET BY MOUTH EVERY DAY duloxetine 60 mg capsule,delayed release(DR/EC) 60 mg PO BID Label Comments: TAKE ONE CAPSULE BY MOUTH TWICE DAILY aspirin [Adult Low Dose Aspirin] 81 mg tablet,delayed release (DR/EC) 81 mg PO DAILY acetaminophen [Tylenol Extra Strength] 500 mg tablet 1,000 mg PO Q6H PRN (Reason: pain) albuterol sulfate 90 mcg/actuation HFA aerosol inhaler 1 gm IH NEEDED PRN (Reason: asthma) Label Comments: INHALE 1 PUFF BY MOUTH EVERY 4 HOURS NEEDED famotidine 40 mg tablet 40 mg PO HS tizanidine 4 MG tablet 4 mg PO HS Qty: 30 2RF pregabalin 150 MG capsule 150 mg PO TID Qty: 90 0RF losartan 50 MG tablet 50 mg PO DAILY sucralfate 1 GM/10 ML suspension 10 ml PO TID Referrals Follow up/Referrals: Pepper Arenas APRN [Primary Care Provider] - See instructions Discharge ED Provider: Priscilla Lopez Psych HPI General Chief Complaint: Psychiatric Symptoms Stated Complaint: OD Time Seen by Provider: 09/04/22 22:05 Mode of Arrival: Wheelchair Description of Symptoms (Recalled from ER Triage Doc. by RN): pt arrived POV per her after she claims that she took about 40 pill unknown combination of metopralol, losartan and amlodapine. pt stated that she was trying to because everyone was mad at her History of Present Illness HPI Narrative: Mrs. Russo is a 67-year-old female with past medical history for SI presenting to the emergency department for intentional ingestion. Patient reports she took losartan, metoprolol and amlodipine approximately 40 pills unclear exact quantity of each. Patient reports since then she has had dyspnea as well as right-sided abdominal pain. She denies any episodes of emesis. Patient reports her family was angry at her which is why she took the medication in an attempt to harm herself. Immediately after taking patient reports she informed her family. She denies any hallucinations or homicidal ideations Denies any ethanol or illicit drug use. MD complaint: suicidal ideation and feels depressed Related Data Home Medications Medication Instructions Recorded Confirmed hydrochlorothiazide 50 mg tablet 50 mg PO DAILY Fluid 90 days ##90 06/29/18 08/05/22 potassium chloride 20 mEq 20 meq PO DAILY Supplement 90 days 06/29/18 08/05/22 tablet,extended release(part/cryst) ##90 acetaminophen 500 mg tablet 1,000 mg PO Q6H PRN pain 04/16/21 08/05/22 (Tylenol Extra Strength) aspirin 81 mg tablet,delayed 81 mg PO DAILY heart health 04/16/21 08/05/22 release (Adult Low Dose Aspirin) duloxetine 60 mg capsule,delayed 60 mg PO BID mood 04/16/21 08/05/22 release amlodipine 10 mg tablet 10 mg PO DAILY BP 07/30/21 08/05/22 bupropion HCl 150 mg 24 hr tablet, 150 mg PO DAILY Depression 07/30/21 08/05/22 extended release metoprolol succinate 100 mg 100 mg PO DAILY BP 07/30/21 08/05/22 tablet,extended release 24 hr losartan 50 mg tablet 50 mg PO DAILY BP 10/11/21 08/05/22 albuterol sulfate 90 mcg/actuation 1 gm inhalation NEEDED PRN 04/21/22 08/05/22 aerosol inhaler asthma famotidine 40 mg tablet 40 mg PO HS . 06/02/22 08/05/22 sucralfate 100 mg/mL oral 10 ml PO TID .
[2022-09-04 23:31] VITALS: BP 138/55; PULSE 56; O2SAT 97
[2022-09-04 23:38] LABS: Squamous Epithelial Cell,Urine Occasional #/hpf (0-5)
[2022-09-05] VITALS (21 sets, daily range): BP systolic 68–125; BP diastolic 30–61; PULSE 41–54; RESP 11–16; TEMP 36.6; O2SAT 91–100
--- NOTE | 2022-09-05 00:47 | PC.NURSE ---
faxed pt infomation to intake @ [facility] for review
--- NOTE | 2022-09-05 00:51 | PC.NURSE ---
Pt resting in bed. at BS
--- NOTE | 2022-09-05 01:03 | PC.NURSE ---
Dr. Lopez at speaking with pt/family
--- NOTE | 2022-09-05 02:45 | PC.NURSE ---
ER speaking with [facility]OC[employer]ATE at this time
--- NOTE | 2022-09-05 04:45 | PC.NURSE ---
Spoke with Poison Control gave update at this time
== END 2022-09-05 05:38 | disposition other institution (70) ==
PROVIDERS: Emergency Provider Student in an Organized Health Care Education/Training Program; PCP Nurse Practitioner Family
DX: R45.89 Other symptoms and signs involving emotional state (principal); I95.9 Hypotension, unspecified; Z79.82 Long term (current) use of aspirin; Z79.899 Other long term (current) drug therapy; Z88.6 Allergy status to analgesic agent; Z88.1 Allergy status to other antibiotic agents; Z88.8 Allergy status to other drugs, medicaments and biological substances; F32.A Depression, unspecified; E78.5 Hyperlipidemia, unspecified; I10 Essential (primary) hypertension
CPT/HCPCS: 51702; 80053; 80305; 80329; 81001; 82962; 83735; 85025; 93005; 99291; C9803; J1610; U0003; U0005

== ENCOUNTER → 2022-09-18 08:41 | Outpatient (POV) | payer MEDICARE, BC, SELFPAY ==
[2022-09-18 08:54] VITALS: BP 160/76; PULSE 81; RESP 18; O2SAT 93; BMI 47.5
--- NOTE | 2022-09-18 09:23 | EXP.PAIN.SOA ---
[facility] Pain Management SOAP Note Subjective:: Patient is a pleasant 67-year-old female who presents today for follow-up of right knee genicular nerve block on 08/05/2022. We are currently treating the patient for degenerative disc disease of lumbar spine with lumbar radiculopathy symptoms, bilateral knee pain. Today she rates her pain a 6 out of 10. She states her pain is primarily in her knees. Patient states since her last visit she has had a couple of falls while she was playing with her granddaughter that led to her ultimately landing on both knees. Patient describes this as a aching, throbbing sensation that is worse with increased activity or range of motion. Patient previously had a right knee genicular blocks that provided 100% improvement lasting 6 to 8 weeks. Patient is currently managed with pregabalin 150 mg 3 times a day. Patient does denies any side effects from this medication. She states this medication does not seem to work as well as when it initially was started. She is requesting an increase and refill at today's visit. Patient is also taking Zanaflex 4 mg at night. Patient has had multiple injective therapies and 8M ILD procedure in the past. Her Raoul is [id number]. It has been reviewed and appropriate. Review of Systems: General: No recent weight changes, no fever, no sleep disturbances Respiratory: No cough, no shortness of air, no recurring pulmonary infections Cardiovascular/peripheral vascular: No chest pain, no palpitations, no edema, no shortness of breath Gastrointestinal: No new onset incontinence, normal bowel movements reported Genitourinary: No new onset incontinence Musculoskeletal: Bilateral knee pain Psychiatric: [Normal mood/affect] Neurological: [Denies weakness in extremities], [denies balance issues] Objective:: Physical Exam: General: Alert and oriented x3, no acute distress, pleasant and cooperative Lungs: Respirations even and unlabored, symmetrical chest expansion Eyes: PERRL Musculoskeletal: Flexion and extension of bilateral knees, lumbar [spine] somewhat guarded secondary to pain, [antalgic gait noted] Neurological: Speech clear, no gross sensory deficit Assessment:: Degenerative disc disease of lumbar spine with lumbar radiculopathy symptoms, bilateral knee pain Plan:: Patient is experiencing significant pain in her bilateral knees during today's visit. I have counseled the patient that she may benefit from the genicular RFA of her right knee. Risk and benefits were discussed with the patient. She would like to proceed forward with this plan of care. I will refill the patient's Pregabalin 150 mg 3 times daily and provide a 1 month supply of this medication. At her next visit we will discuss options for increasing or changing her medication. Patient will be scheduled for a right knee genicular RFA. Patient has been instructed to contact the clinic with any concerns before the next appointment. Dr. Ballard has reviewed this note and agrees with this plan of care. This note was dictated using voice recognition software and make contain errors or omissions. PFSH PFSH Medical History Depression HLD (hyperlipidemia) HTN (hypertension) Port-A-Cath in place Surgical History H/O eye surgery H/O total hysterectomy H/O total knee replacement History of History of cardiac cath Family History Other Cancer No significant family history Social History Smoking Status: Smoker, status unknown alcohol intake: never substance use type: denies use current occupational status: retired Travel in the last 8 weeks: None household members: spouse housing: house caffeine: Yes
== END | disposition home or self-care (01) ==
PROVIDERS: PCP Nurse Practitioner Family; Visit Provider Nurse Practitioner Family
DX: M51.16 Intervertebral disc disorders with radiculopathy, lumbar region (principal); M25.561 Pain in right knee; M25.562 Pain in left knee
CPT/HCPCS: 99212; G0463

== ENCOUNTER 2022-09-23 11:30 | Emergency (ER) | payer MEDICARE, BC, SELFPAY ==
[2022-09-23 11:31] VITALS: BP 178/76; PULSE 75; RESP 16; TEMP 36.7; O2SAT 97; BMI 50.5
--- NOTE | 2022-09-23 11:50 | ECG_ITS ---
APPROVED REPORT Exam: Resting ECG HR:71 bpm ECG Measurements Heart Rate 71 AXES LA 162 P 67 QRSd 85 QRS 58 QT 386 T 72 QTc 409 Conclusion SINUS RHYTHM NORMAL ECG UNCONFIRMED REPORT Electronically signed by : Darrian Mcwilliams MD 09/25/2022 20:16:21
--- NOTE | 2022-09-23 12:04 | XR_ITS ---
FINAL REPORT CLINICAL HISTORY: SOA COMPARISON: 04/26/2020 FINDINGS: TWO-VIEW CHEST The heart size is normal. The mediastinum is normal. Right subclavian port terminates in the upper SVC. The lungs are clear. There is no pneumothorax. IMPRESSION: No acute cardiopulmonary process. Reviewed, Interpreted and Dictated by Anuj Chowdhury III, MD Transcribed by Fadumo Gonzalez Authenticated and [facility]
[2022-09-23 12:16] LABS: Chloride 102 mmol/L (98-107); Potassium 3.8 mmoL/L (3.5-5.1); Sodium 142 mmol/L (136-145)
[2022-09-23 12:18] LABS: Blood Urea Nitrogen 19 mg/dl (7-17)
[2022-09-23 12:19] LABS: Alanine Aminotransferase 21 U/L (12-78); Albumin/Globulin Ratio 1.3 (1.1-1.8); Alkaline Phosphatase 92 U/L (38-126); Anion Gap 11.8 mEq/L (5-15); Aspartate Amino Transferase 34 U/L (14-36); Bilirubin,Total 0.3 mg/dl (0.2-1.3); Calcium 9.7 mg/dl (8.4-10.2); Carbon Dioxide 32 mmol/L (22.0-30.0); Creatinine Clearance Estimated 43 mL/min (50-200); Estimated Glomerular Filt Rate 72 ml/min (>60); GFR (African American) 87 ML/MIN (>60); Globulin 3.1 g/dL (1.3-3.2); Glucose 93 mg/dl (74-100); Total Protein,Serum 7.1 g/dl (6.3-8.2)
[2022-09-23 12:33] LABS: Troponin I < 0.01 ng/ml (0.00-0.034)
--- NOTE | 2022-09-23 12:42 | HMH.EDGENADL ---
Discharge Plan Disposition Patient Disposition: Home, Self-Care Condition: Good Prescriptions Prescriptions: No Action potassium chloride 20 mEq tablet,ER particles/crystals 20 meq PO DAILY 90 Days Qty: 90 hydrochlorothiazide 50 mg tablet 50 mg PO DAILY 90 Days Qty: 90 diclofenac sodium [Voltaren] 1 % gel 4 gm TP QID Qty: 30 2RF Rx Instructions: apply to single knee, ankle, foot; gently massage into area; for foot includes sole/toes/top of foot bupropion HCl 150 mg tablet extended release 24 hr 150 mg PO DAILY amlodipine 10 mg tablet 10 mg PO DAILY Label Comments: TAKE ONE TABLET BY MOUTH EVERY DAY metoprolol succinate 100 mg tablet extended release 24 hr 100 mg PO DAILY Label Comments: TAKE ONE TABLET BY MOUTH EVERY DAY duloxetine 60 mg capsule,delayed release(DR/EC) 60 mg PO BID Label Comments: TAKE ONE CAPSULE BY MOUTH TWICE DAILY aspirin [Adult Low Dose Aspirin] 81 mg tablet,delayed release (DR/EC) 81 mg PO DAILY acetaminophen [Tylenol Extra Strength] 500 mg tablet 1,000 mg PO Q6H PRN (Reason: pain) albuterol sulfate 90 mcg/actuation HFA aerosol inhaler 1 gm IH NEEDED PRN (Reason: asthma) Label Comments: INHALE 1 PUFF BY MOUTH EVERY 4 HOURS NEEDED famotidine 40 mg tablet 40 mg PO HS tizanidine 4 MG tablet 4 mg PO HS Qty: 30 2RF pregabalin 150 MG capsule 150 mg PO TID Qty: 90 0RF losartan 50 MG tablet 50 mg PO DAILY sucralfate 1 GM/10 ML suspension 10 ml PO TID Referrals Follow up/Referrals: Pepper Arenas APRN [Primary Care Provider] - See instructions Activity Restrictions/Add. Instructions Additional Instructions/Restrictions: Contact Denisse Arenas today to discuss whether to restart your hydrochlorothiazide and/or other blood pressure medications. Clinical Impressions Clinical Impression: Edema, peripheral Instructions Patient Instructions: DI for Peripheral Edema -- Bilateral Discharge ED Provider: Michael Nguyen General Adult [facility] General Chief complaint: Shortness of Breath/Dyspnea Stated complaint: physician referral, fluid drain Time Seen by Provider: 09/23/22 12:32 Mode of Arrival: Ambulatory Limitations: No Limitations Description of Symptoms (Recalled from ER Triage Doc. by RN): pt was sent from [facility]ba [facility]es office after she was there for increased SOA and that she had gained 10lbs since last week. Pt was taken off of all of her b/p meds after an attempted suicide a couple of weeks ago which resulted in acute kidney failure. Elba was concerned with fluid buildup and kidney function today. History of Present Illness HPI narrative: Sent from the office of her primary care provider. Patient recently had an overdose which resulted in hypotension and kidney failure. Taken off of all of her blood pressure medications including diuretic hydrochlorothiazide. Primary care provider notes 10 pound weight gain in the past week. Patient complains of swelling and shortness of air. Our nursing staff contact Denisse Arenas who said she wanted the patient to have her kidney function checked and a dose of Lasix if appropriate. The patient also complains of generalized body weakness for few days. No URI symptoms or fever. Related Data Home Medications Medication Instructions Recorded Confirmed hydrochlorothiazide 50 mg tablet 50 mg PO DAILY Fluid 90 days ##90 06/29/18 09/18/22 potassium chloride 20 mEq 20 meq PO DAILY Supplement 90 days 06/29/18 09/18/22 tablet,extended release(part/cryst) ##90 acetaminophen 500 mg tablet 1,000 mg PO Q6H PRN pain 04/16/21 09/18/22 (Tylenol Extra Strength) aspirin 81 mg tablet,delayed 81 mg PO DAILY heart health 04/16/21 09/18/22 release (Adult Low Dose Aspirin) duloxetine 60 mg capsule,delayed 60 mg PO BID mood 04/16/21 09/18/22 release amlodipine 10 mg tablet 10 mg PO DAILY BP 07/30/21 09/18/22 bupropion HCl 150 mg 24 hr
[2022-09-23 12:58] LABS: NT Pro Brain Natriuretic Pep. 908 pg/mL (0-125)
[2022-09-23 13:00] LABS: Microscopic, Urine URINE MICROSCOPIC (MICROSCOPIC)
[2022-09-23 13:04] LABS: Appearance,Urine CLEAR (Clear); Bilirubin,Urine Negative (Negative); Blood, Urine Negative (Negative); Color,Urine STRAW (Yellow); Glucose,Urine (UA) Negative (Negative); Ketones,Urine Negative (Negative); Leukocyte Esterase,Urine Negative (Negative); Nitrate,Urine Negative (Negative); PH,Urine 7.5 (5.0-8.5); Protein,Urine Negative (Negative); Urobilinogen,Urine 0.2 EU/dl (0.2)
[2022-09-23 13:17] LABS: Basophils # 0.1 K/mm3 (0-0.2); Eosinophils # 0.2 K/mm3 (0.0-0.4); Eosinophils % 3.1 % (0.1-12.0); Hemoglobin 12.4 g/dL (12.2-16.2); Lymphocytes # 2.6 K/mm3 (0.7-4.5); Lymphocytes % 33.2 % (10-50); Mean Corpuscular HGB Conc 32.5 g/dL (31.8-35.4); Mean Corpuscular Hemoglobin 29.8 pg (27.0-31.2); Mean Corpuscular Volume 91.6 fl (81-99); Monocytes # 0.4 K/mm3 (0.1-1.0); Monocytes % 5.1 % (1.7-9.3); Neutrophils # 4.5 K/mm3 (1.8-7.8); Neutrophils % 57.6 % (37.0-80.0); Platelet Count 446 K/mm3 (142-424); Red Blood Count 4.15 M/mm3 (4.20-5.40); Red Cell Distribution Width 15.5 % (11.5-17.5); White Blood Count 7.9 K/mm3 (4.8-10.8)
[2022-09-23 13:18] LABS: Bacteria,Urine Trace /lpf; Squamous Epithelial Cell,Urine Occasional #/hpf (0-5)
[2022-09-23 14:33] VITALS: BP 154/88; PULSE 84; RESP 16; TEMP 36.9; O2SAT 98
== END 2022-09-23 14:35 | disposition home or self-care (01) ==
PROVIDERS: Emergency Provider Emergency Medicine; PCP Nurse Practitioner Family
DX: J45.909 Unspecified asthma, uncomplicated (principal); R60.9 Edema, unspecified; R53.1 Weakness; R63.5 Abnormal weight gain; I10 Essential (primary) hypertension; N17.9 Acute kidney failure, unspecified; E78.5 Hyperlipidemia, unspecified; F32.9 Major depressive disorder, single episode, unspecified; F41.1 Generalized anxiety disorder; Z79.1 Long term (current) use of non-steroidal anti-inflammatories (NSAID); Z79.51 Long term (current) use of inhaled steroids; Z79.82 Long term (current) use of aspirin; Z79.899 Other long term (current) drug therapy; Z88.6 Allergy status to analgesic agent; Z88.5 Allergy status to narcotic agent; Z88.8 Allergy status to other drugs, medicaments and biological substances; Z91.048 Other nonmedicinal substance allergy status; Z68.43 Body mass index [BMI] 50.0-59.9, adult; Z80.9 Family history of malignant neoplasm, unspecified
CPT/HCPCS: 71046; 80053; 81001; 83880; 84484; 85025; 93005; 99284

== ENCOUNTER 2022-09-30 09:58 | Day surgery (SDC) | payer MEDICARE, BC, SELFPAY ==
[2022-09-30 10:06] VITALS: BP 162/68; PULSE 69; RESP 18; TEMP 36.7; O2SAT 96; BMI 48.6
[2022-09-30 10:20] VITALS: BP 133/70; PULSE 68; RESP 18; O2SAT 97
[2022-09-30 10:21] VITALS: BP 133/70; PULSE 68; RESP 18; O2SAT 97
[2022-09-30 10:44] VITALS: BP 157/81; PULSE 70; RESP 20
--- NOTE | 2022-09-30 11:26 | P.PCN_ITS ---
Procedure Date: 09/30/22 Time: 11:00 Anesthesiologist:: Jesse Espino CRNA Complications:: None Pre-procedure Diagnosis:: Chronic right knee pain. Post-procedure Diagnosis:: Same. Indications for Procedure:: Patient is a very pleasant 67-year-old female whose had 2 successful right genicular knee blocks. Each block lasted 3 to 4 days in terms of relief. However, she continues with chronic right knee pain she describes as constant, dull, sharp, stabbing. Patient had right knee total joint replacement in the past. She is continue to have pain. Procedure Details:: Procedure Details: Right knee genicular RFA Informed consent was obtained risk and benefits of the procedure were explained to the patient. Patient was taken the procedure room. The right knee was prepped using ChloraPrep. The skin and subcutaneous tissues were anesthetized using lidocaine. I placed 20-gauge RF needles into the superior lateral genicular nerve area of the superior medial genicular nerve area and inferior medial genicular nerve area we underwent sensory stimulation. There is good sensory stimulation at 1 V. We underwent motor stimulation. There was no motor stimulation at 3 V. We then anesthetized all 3 nerves with bupivacaine and Depo- Medrol. We then burned each genicular nerve superior lateral, superior medial and inferior medial 80 ?C for 4 minutes. Patient tolerated procedure well with no complications. Plan and Disposition:: Patient was discharged without incident.
== END 2022-09-30 10:45 | disposition home or self-care (01) ==
LOC: SC.PAINP 09:59
PROVIDERS: PCP Nurse Practitioner Family; Visit Provider Nurse Anesthetist, Certified Registered
DX: M25.561 Pain in right knee (principal); G89.29 Other chronic pain
CPT/HCPCS: 64454; J1030

== ENCOUNTER → 2022-10-07 11:02 | Outpatient (CLI) | payer MEDICARE, BC, SELFPAY ==
--- NOTE | 2022-10-07 11:03 | MR_ITS ---
FINAL REPORT CLINICAL HISTORY: SMALL VESSEL DISEASE. HISTORY BRAIN BLEED 1 YEAR AGO. COMPARISON: 03/23/2021 FINDINGS: Multiplanar MR imaging of the brain was performed without contrast. Motion artifact is identified on many of the images. There are scattered foci of increased T2 signal in the cerebral white matter that have a nonspecific appearance but likely represent mild chronic ischemic/gliotic changes. There is no evidence of intracranial hemorrhage or mass. No abnormal ventricular dilatation is identified. No abnormal extra-axial fluid collection is seen. No abnormality is seen on the diffusion weighted images. The posterior fossa and brainstem are unremarkable. Normal major vessel vascular flow voids are seen. IMPRESSION: Mild chronic ischemic/gliotic changes. No acute intracranial abnormality. Reviewed, Interpreted and Dictated by Anuj Chowdhury III, MD Transcribed by Fadumo Gonzalez Authenticated and [facility]
== END ==
PROVIDERS: PCP Nurse Practitioner Family; Visit Provider Nurse Practitioner Family
DX: I67.89 Other cerebrovascular disease (principal)
CPT/HCPCS: 70551

== ENCOUNTER → 2022-10-16 13:30 | Outpatient (POV) | payer MEDICARE, BC, SELFPAY ==
[2022-10-16 13:35] VITALS: BP 194/91; PULSE 74; RESP 18; O2SAT 94; BMI 48.6
--- NOTE | 2022-10-16 14:09 | EXP.PAIN.SOA ---
[facility] Pain Management SOAP Note Subjective:: Patient is a pleasant 67-year-old female who presents today for follow-up of right knee genicular RFA on 09/30/2022. We are currently treating the patient for degenerative disc disease of lumbar spine with lumbar radiculopathy symptoms, bilateral knee pain. Today the patient states that she has not had significant improvement of her symptoms of her right knee following this procedure. Patient states that she does seem to be starting to feel some improvement at today's visit however it does continue to have pain and trouble bending her knee. Patient is prescribed pregabalin 150 mg 3 times a day and Zanaflex 4 mg at night. Patient states she has no side effects to these medications however she does not notice significant improvement with either. Patient is requesting an increase at today's visit. Patient has had a mild procedure in the past. Previous genicular nerve blocks have provided 100% relief lasting approximately 6 to 8 weeks. Patient is also been prescribed compounding cream in the past. Her Raoul is [phone]. This is been reviewed and appropriate. Review of Systems: General: No recent weight changes, no fever, no sleep disturbances Respiratory: No cough, no shortness of air, no recurring pulmonary infections Cardiovascular/peripheral vascular: No chest pain, no palpitations, no edema, no shortness of breath Gastrointestinal: No new onset incontinence, normal bowel movements reported Genitourinary: No new onset incontinence Musculoskeletal: Right knee pain, low back pain Psychiatric: [Normal mood/affect] Neurological: [Denies weakness in extremities], [denies balance issues] Objective:: Physical Exam: General: Alert and oriented x3, no acute distress, pleasant and cooperative Lungs: Respirations even and unlabored, symmetrical chest expansion Eyes: PERRL Musculoskeletal: Flexion and extension of lumbar [spine] somewhat guarded secondary to pain, [antalgic gait noted] Neurological: Speech clear, no gross sensory deficit Assessment:: Degenerative disc disease of lumbar spine with lumbar radiculopathy symptoms, bilateral knee pain Plan:: Patient continues to experience significant pain in her low back and right knee. I will send in a new prescription of baclofen 5 mg 3 times daily and provide a 1 month supply of this medication. I have counseled the patient to stop taking any of her previous muscle relaxer medication she may have left. We will order the patient gabapentin 200 mg 3 times daily instead of her previous pregabalin medication and provide a 14-day supply of this medication. Patient has been counseled to contact our office at the end of the 14-day supply of the gabapentin to verify she has not had any adverse side effects and if she would like to continue this medication. Patient will return to clinic in 1 month for reevaluation of symptoms, medication refill and follow-up. Patient has been instructed to contact the clinic with any concerns before the next appointment. Dr. Ballard has reviewed this note and agrees with this plan of care. This note was dictated using voice recognition software and make contain errors or omissions. [facility] Disclaimer: The information contained in this section may have been updated after the patient was seen, as this information can be updated by other users. Medical History (Updated 09/30/22 @ 13:15 by Kimberly Shetty APRN) Depression Generalized anxiety disorder HLD (hyperlipidemia) HTN (hypertension) Major depressive disorder Port-A-Cath in place Surgical History H/O eye surgery H/O total hysterectomy H/O total knee replacement History of History of cardiac cath Family History Other Cancer No significant family history Social History Smoking Status: Never
== END | disposition home or self-care (01) ==
PROVIDERS: PCP Nurse Practitioner Family; Visit Provider Nurse Practitioner Family
DX: M51.16 Intervertebral disc disorders with radiculopathy, lumbar region (principal); M25.561 Pain in right knee; M25.562 Pain in left knee
CPT/HCPCS: 99212; G0463

== ENCOUNTER → 2022-10-23 09:57 | Outpatient (POV) | payer MEDICARE, BC, SELFPAY ==
[2022-10-23 10:04] VITALS: BP 157/79; PULSE 87; RESP 18; O2SAT 97; BMI 40.2
--- NOTE | 2022-10-23 10:18 | EXP.PAIN.SOA ---
[facility] Pain Management SOAP Note Subjective:: Patient is a pleasant 67 yo female who presents today for follow up. Patient is current being treated for degenerative disease of lumbar spine with lumbar radiculopathy symptoms, bilateral knee pain. When we saw her last week, she was complaining of worsening pain. She says her lyrica 150mg TID is not helping as much anymore. Dana changed her to Gabapentin 200mg TID. Today, patient states that she took this medication for a few days but she could not tolerate it. It made her groggy and upset her stomach. She has stopped taking this medication. She was also started on baclofen 5mg TID which is helping some. Rates pain today as 08/11. Raoul [id number], MEQ 0. She also had a right genicular RFA on 09/30/22. She continues to have relief from this. Review of Systems: General: No recent weight changes, no fever, no sleep disturbances Respiratory: No cough, no shortness of air, no recurring pulmonary infections Cardiovascular/peripheral vascular: No chest pain, no palpitations, no edema, no shortness of breath Gastrointestinal: No new onset incontinence, normal bowel movements reported Genitourinary: No new onset incontinence Musculoskeletal: Low back pain Psychiatric: [Normal mood/affect] Neurological: [Denies weakness in extremities], [denies balance issues] Objective:: Physical Exam: General: Alert and oriented x3, no acute distress, pleasant and cooperative Lungs: Respirations even and unlabored, symmetrical chest expansion Eyes: PERRL Musculoskeletal: Flexion and extension of lumbar [spine] somewhat guarded secondary to pain, [antalgic gait noted] Neurological: Speech clear, no gross sensory deficit Assessment:: Degenerative disc disease of lumbar spine with lumbar radiculopathy symptoms, osteoarthritis of the right knee Plan:: Will restart the patient's Lyrica 150mg TID. Patient will continue to take baclofen 5mg TID. Follow up in 1 month. Patient has been instructed to contact the clinic with any concerns before the next appointment. Dr. Ballard has reviewed this note and agrees with this plan of care. This note was dictated using voice recognition software and make contain errors or omissions. [facility] Disclaimer: The information contained in this section may have been updated after the patient was seen, as this information can be updated by other users. Medical History (Updated 09/30/22 @ 13:15 by Kimberly Shetty APRN) Depression Generalized anxiety disorder HLD (hyperlipidemia) HTN (hypertension) Major depressive disorder Port-A-Cath in place Surgical History H/O eye surgery H/O total hysterectomy H/O total knee replacement History of History of cardiac cath Family History Other Cancer No significant family history Social History Smoking Status: Never smoker alcohol intake: never substance use type: denies use current occupational status: retired Travel in the last 8 weeks: None household members: spouse housing: house caffeine: Yes
== END ==
PROVIDERS: PCP Nurse Practitioner Family; Visit Provider Student in an Organized Health Care Education/Training Program
DX: M51.16 Intervertebral disc disorders with radiculopathy, lumbar region (principal); M17.11 Unilateral primary osteoarthritis, right knee
CPT/HCPCS: 99212; G0463

== ENCOUNTER → 2022-11-13 14:38 | Outpatient (POV) | payer MEDICARE, BC, SELFPAY ==
[2022-11-13 14:48] VITALS: BP 186/71; PULSE 58; RESP 18; O2SAT 97; BMI 47.5
--- NOTE | 2022-11-13 15:02 | EXP.PAIN.SOA ---
[facility] Pain Management SOAP Note Subjective:: Patient is a pleasant 67-year-old female who presents today for follow-up and medication refill. We are currently treating the patient for degenerative disc disease of lumbar spine with lumbar radiculopathy symptoms, bilateral knee pain, status post minimally invasive lumbar decompression at L3-4 and L4-5. Today the patient rates her pain a 5 out of 10. Patient states that her pain is all around the middle of her low back. Patient denies any new trauma or injury. Patient denies any change location or type of pain she experiences. Patient does describe this as a aching, throbbing sensation that is worse with increasing activity or certain range of motion. Patient states she was recently cleaning out her closet this week and did have worsening pain with radiating symptoms into her leg. Patient states that after she changed her position this pain did decrease back to its baseline. Patient does state the pain does affect her ability to perform activities of daily living such as cooking and cleaning. Patient is currently prescribed pregabalin 150 mg 3 times a day and baclofen 5 mg 3 times daily. Patient was previously tried on a increased dosage of gabapentin however she could not tolerate this due to upset stomach and grogginess. Patient was switched back to pregabalin and states the prior side effects have resolved and she was doing well with her previous pregabalin dosage. Patient is requesting a refill at today's visit. Her Raoul is [phone]. Its been reviewed and appropriate. Review of Systems: General: No recent weight changes, no fever, no sleep disturbances Respiratory: No cough, no shortness of air, no recurring pulmonary infections Cardiovascular/peripheral vascular: No chest pain, no palpitations, no edema, no shortness of breath Gastrointestinal: No new onset incontinence, normal bowel movements reported Genitourinary: No new onset incontinence Musculoskeletal: Low back pain, leg pain Psychiatric: [Normal mood/affect] Neurological: [Denies weakness in extremities], [denies balance issues] Objective:: Physical Exam: General: Alert and oriented x3, no acute distress, pleasant and cooperative Lungs: Respirations even and unlabored, symmetrical chest expansion Eyes: PERRL Musculoskeletal: Flexion and extension of lumbar [spine] somewhat guarded secondary to pain, [antalgic gait noted] Neurological: Speech clear, no gross sensory deficit ORT score updated with low risk Assessment:: Degenerative disc disease of lumbar spine with lumbar radiculopathy symptoms, bilateral knee pain, status post DE LD procedure L3-L4 and L4-L5 Plan:: Patient is experiencing significant pain in her low back with radiating symptoms into her lower extremities. Patient did have limited range of motion of her lumbar spine during today's visit. I have discussed with the patient that she may benefit from a lumbar epidural steroid injection. Risk and benefits were discussed with the patient. She would like to proceed forward with this plan of care. Patient is not on any blood thinners. I will also refill the patient's pregabalin 150 mg 3 times a day and baclofen 5 mg 3 times daily and provide a 1 month supply of this medication. We will schedule the patient for an LESI L3-L4. Patient has been instructed to contact the clinic with any concerns before the next appointment. Dr. Ballard has reviewed this note and agrees with this plan of care. This note was dictated using voice recognition software and make contain errors or omissions. [facility] Disclaimer: The information contained in this section may have been updated after the patient was seen, as this information can be updated by other users. Medical History (Updated 09/30/22 @ 13:15 by Kimberly Shetty APRN) Depression Generalized anxiety disorder HLD (hyperlipidemia) HTN (hypertension) Major depressive disorder Port-A-Cath in place Surgical History (Reviewed 1
== END | disposition home or self-care (01) ==
PROVIDERS: PCP Nurse Practitioner Family; Visit Provider Nurse Practitioner Family
DX: M51.16 Intervertebral disc disorders with radiculopathy, lumbar region (principal); M25.561 Pain in right knee; M25.562 Pain in left knee
CPT/HCPCS: 99212; G0463

== ENCOUNTER 2022-11-18 11:45 | Day surgery (SDC) | payer MEDICARE, BC, SELFPAY ==
[2022-11-18 12:06] VITALS: BP 190/84; PULSE 71; RESP 18; TEMP 36.9; O2SAT 97; BMI 48.6
[2022-11-18 12:13] VITALS: BP 188/75; PULSE 66; RESP 18; O2SAT 97
--- NOTE | 2022-11-18 12:23 | EXP.PAIN.PRO ---
Procedure Date: 11/18/22 Time: 12:15 Anesthesiologist:: Jesse Espino CRNA Complications:: None Pre-procedure Diagnosis:: Degenerative disc disease lumbar spine multilevels. Lumbar radiculopathy. Lumbar postlaminectomy syndrome Post-procedure Diagnosis:: Same. Indications for Procedure:: This patient is a pleasant 67-year-old female comes our clinic today for her initial lumbar epidural steroid injection at L3-4 level. However, due to scar tissue and previous surgery the injection was given at L4-5. Patient reports low back pain as well as right hip and leg radicular symptoms. She rates her pain 6/10. Procedure Details:: Procedure: Lumbar epidural steroid injection under fluoroscopy Informed consent was obtained and the risks and benefits of the procedure were explained to the patient. The patient was taken to the procedure room and noninvasive monitors placed, including noninvasive blood pressure cuff and pulse oximeter. The back was viewed using C-arm Fluoroscopy and prepped using Chloraprep as a cleansing solution and the L4-L5 interspace was palpated. Skin and subcutaneous tissues were anesthetized using lidocaine 1.5% and a 25-gauge needle. After this, an 18-gauge Touhy epidural needle was placed into the L4-L5 interspace and advanced using fluoroscopic guidance and loss of resistance to air until the epidural space was encountered. After confirmation of needle placement in the epidural space, with dye, a solution containing normal saline, 3 mL and Depo-Medrol 80 mg were incrementally injected into the lumbar epidural space. The patient tolerated the procedure well with no complications. The patient was observed in the Pain Clinic and then discharged home neurologically intact. Plan and Disposition:: Patient was discharged without incident.
== END 2022-11-18 12:13 | disposition home or self-care (01) ==
LOC: SC.PAINP 11:46
PROVIDERS: PCP Nurse Practitioner Family; Visit Provider Nurse Anesthetist, Certified Registered
DX: M51.16 Intervertebral disc disorders with radiculopathy, lumbar region (principal); M96.1 Postlaminectomy syndrome, not elsewhere classified
CPT/HCPCS: 62323; J1040

== ENCOUNTER 2022-11-23 18:07 | Emergency (ER) | payer MEDICARE, BC, SELFPAY ==
[2022-11-23] VITALS (8 sets, daily range): BP systolic 136–200; BP diastolic 75–105; PULSE 62–68; RESP 14–20; TEMP 36.7; O2SAT 95–99; BMI 48.6
--- NOTE | 2022-11-23 19:10 | PC.NURSE ---
Dr. Nguyen at [facility] speaking with pt
--- NOTE | 2022-11-23 19:21 | HMH.EDGENADL ---
Discharge Plan Disposition Patient Disposition: Home, Self-Care Condition: Good Prescriptions Prescriptions: No Action potassium chloride 20 mEq tablet,ER particles/crystals 20 meq PO DAILY 90 Days Qty: 90 hydrochlorothiazide 50 mg tablet 50 mg PO DAILY 90 Days Qty: 90 diclofenac sodium [Voltaren] 1 % gel 4 gm TP QID Qty: 30 2RF Rx Instructions: apply to single knee, ankle, foot; gently massage into area; for foot includes sole/toes/top of foot metoprolol succinate 100 mg tablet extended release 24 hr 150 mg PO DAILY Label Comments: TAKE ONE TABLET BY MOUTH EVERY DAY duloxetine 60 mg capsule,delayed release(DR/EC) 60 mg PO BID Label Comments: TAKE ONE CAPSULE BY MOUTH TWICE DAILY aspirin [Adult Low Dose Aspirin] 81 mg tablet,delayed release (DR/EC) 81 mg PO DAILY acetaminophen [Tylenol Extra Strength] 500 mg tablet 1,000 mg PO Q6H PRN (Reason: pain) albuterol sulfate 90 mcg/actuation HFA aerosol inhaler 1 gm IH NEEDED PRN (Reason: asthma) Label Comments: INHALE 1 PUFF BY MOUTH EVERY 4 HOURS NEEDED famotidine 40 mg tablet 40 mg PO HS aripiprazole [Abilify] 10 mg Tablet 10 mg PO DAILY tizanidine 4 MG tablet 4 mg PO HS Qty: 30 2RF baclofen 5 mg tablet 5 mg PO TID Qty: 90 0RF pregabalin 150 MG capsule 150 mg PO TID Qty: 90 0RF sucralfate 1 GM/10 ML suspension 10 ml PO TID gabapentin 100 mg capsule 200 mg PO TID Trintellix 10 mg tablet 10 mg PO .COMPLEX Rx Instructions: 10 mg PO take 1/2 tablet for 8 days; then increase to 1 tablet; Referrals Follow up/Referrals: Pepper Arenas APRN [Primary Care Provider] - See instructions Clinical Impressions Clinical Impression: Hypertension, Chest pain, Difficulty with speech, Ear pain, left Instructions Patient Instructions: Dizziness, Nonvertigo Discharge ED Provider: Michael Nguyen Adult HPI <Michael Nguyen MD - Last Filed: 11/23/22 21:13> General Chief complaint: Dizziness Stated complaint: HBP 200/100 Time Seen by Provider: 11/23/22 19:15 Mode of Arrival: Wheelchair Source of Information: Patient and Spouse Limitations: No Limitations Description of Symptoms (Recalled from ER Triage Doc. by RN): Pt reports feeling dizzy this morning and nearly passing out, checked her bp at home 200/100, with wobbly legs and also c/o recent sinus congestion with pmh of vertigo; History of Present Illness HPI narrative: States that this morning when getting ready for [employer] both of her legs went weak. She did not fall or injure herself. She did not have loss of consciousness. She says that her talks to her blood pressure cuff and her blood pressure was elevated. Her blood pressure improved throughout the afternoon, but then this evening was again elevated to 200/100 so she thought she should come in and get checked out. Throughout the day she says that she felt a little tightness in her chest and also felt at one point like her speech was slow or thick tongue. Her did not notice any problems with her speech. She does not have a headache or any numbness or weakness in extremities. She also says that she has felt like she has had a sinus infection for a week with some shortness of breath. She has hypertension. Previously she was on lisinopril, metoprolol, and amlodipine. She says that a couple of months ago 2 of her medications, amlodipine and lisinopril, were stopped because of kidney dysfunction. She now only takes metoprolol once a day. She has a prior history of vertigo, but did not feel any sensation of vertigo today. Related Data Home Medications Medication Instructions Recorded Confirmed hydrochlorothiazide 50 mg tablet 50 mg PO DAILY Fluid 90 days ##90 06/29/18 11/18/22 potassium chloride 20 mEq 20 meq PO DAILY Supplement 90 days 06/29/18 11/18/22 tablet,extended release(part/cryst) ##90 acetamino
--- NOTE | 2022-11-23 19:31 | CT_ITS ---
PROCEDURE INFORMATION: Exam: CT Head Without Contrast Exam date and time: 11/23/2022 7:46 PM Age: 67 years old Clinical indication: Stroke-like symptoms; Speech disturbance; Additional info: Difficulty with speech, high BP TECHNIQUE: Imaging protocol: Computed tomography of the head without contrast. Radiation optimization: All CT scans at this facility use at least one of these dose optimization techniques: automated exposure control; mA and/or kV adjustment per patient size (includes targeted exams where dose is matched to clinical indication); or iterative reconstruction. Other technique: STROKE PROTOCOL was implemented. COMPARISON: No relevant prior studies available. FINDINGS: Brain: There are few white matter lucencies likely mild chronic microvascular disease. Possible small old right basal ganglia lacunar infarct. No acute infarct is identified. There is no cortical infarct. There is no hemorrhage or extra-axial collection. Cerebral ventricles: There is no hydrocephalus. There is a cavum septum pellucidum incidentally noted. Paranasal sinuses: Visualized sinuses are unremarkable. No fluid levels. Mastoid air cells: Visualized mastoid air cells are well aerated. Orbital cavities: Postoperative changes of the right orbit with metal artifact. Bones/joints: Unremarkable. No acute fracture. Soft tissues: Unremarkable. IMPRESSION: 1. Mild chronic microvascular disease. 2. No acute intracranial lesion or injury. ASSESSMENT: ASPECTS ([facility] Stroke Program Early CT Score) is 10.
--- NOTE | 2022-11-23 19:32 | XR_ITS ---
PROCEDURE INFORMATION: Exam: XR Chest Exam date and time: 11/23/2022 7:55 PM Age: 67 years old Clinical indication: Shortness of breath; Additional info: Anthony SOArvind TECHNIQUE: Imaging protocol: Radiologic exam of the chest. Views: 1 view. COMPARISON: No relevant prior studies available. FINDINGS: Tubes, catheters and devices: Central venous access port with tip in SVC. Lungs: Unremarkable. No consolidation. Pleural spaces: Unremarkable. No pleural effusion. No pneumothorax. Heart/Mediastinum: Unremarkable. No cardiomegaly. Bones/joints: Unremarkable. IMPRESSION: No acute findings
--- NOTE | 2022-11-23 19:54 | ECG_ITS ---
APPROVED REPORT Exam: Resting ECG HR:59 bpm ECG Measurements Heart Rate 59 AXES LA 163 P 55 QRSd 88 QRS 37 QT 408 T 56 QTc 408 Conclusion SINUS BRADYCARDIA LOW QRS VOLTAGE IN PRECORDIAL LEADS [QRS DEFLECTION < 1.0 mV IN CHEST LEADS] BORDERLINE ECG UNCONFIRMED REPORT Electronically signed by : Darrian Mcwilliams MD 11/24/2022 20:13:34
[2022-11-23 20:03] LABS: Coronavirus 19, PCR Not Detected (NotDetected); Influenza A, PCR Not Detected (NotDetected); Influenza B, PCR Not Detected (NotDetected)
[2022-11-23 20:17] LABS: Microscopic, Urine URINE MICROSCOPIC (MICROSCOPIC)
[2022-11-23 20:19] LABS: Appearance,Urine CLEAR (Clear); Bilirubin,Urine Negative (Negative); Blood, Urine Negative (Negative); Color,Urine YELLOW (Yellow); Glucose,Urine (UA) Negative (Negative); Ketones,Urine Negative (Negative); Leukocyte Esterase,Urine Negative (Negative); Nitrate,Urine Negative (Negative); PH,Urine 6.5 (5.0-8.5); Protein,Urine Negative (Negative); Specific Gravity, Urine 1.015 (1.005-1.030); Urobilinogen,Urine 0.2 EU/dl (0.2)
[2022-11-23 20:29] LABS: WBC,Urine Occasional #/hpf (0-3)
[2022-11-23 20:35] LABS: Basophils # 0.1 K/mm3 (0-0.2); Basophils % 1.1 % (0.1-2.0); Eosinophils # 0.2 K/mm3 (0.0-0.4); Eosinophils % 2.4 % (0.1-12.0); Hematocrit 39.2 % (37.0-47.0); Hemoglobin 12.6 g/dL (12.2-16.2); Lymphocytes # 3.2 K/mm3 (0.7-4.5); Lymphocytes % 32.2 % (10-50); Mean Corpuscular HGB Conc 32.2 g/dL (31.8-35.4); Mean Corpuscular Hemoglobin 28.8 pg (27.0-31.2); Mean Corpuscular Volume 89.4 fl (81-99); Mean Platelet Volume 7.9 fl (7.4-10.4); Monocytes # 0.6 K/mm3 (0.1-1.0); Monocytes % 5.6 % (1.7-9.3); Neutrophils # 5.8 K/mm3 (1.8-7.8); Neutrophils % 58.7 % (37.0-80.0); Platelet Count 427 K/mm3 (142-424); Red Blood Count 4.38 M/mm3 (4.20-5.40); Red Cell Distribution Width 14.9 % (11.5-17.5); White Blood Count 9.9 K/mm3 (4.8-10.8)
[2022-11-23 20:46] LABS: Alanine Aminotransferase 17 U/L (12-78); Albumin Level 4.3 g/dl (3.5-5.0); Albumin/Globulin Ratio 1.1 (1.1-1.8); Alkaline Phosphatase 72 U/L (38-126); Anion Gap 11.6 mEq/L (5-15); Aspartate Amino Transferase 37 U/L (14-36); Bilirubin,Total 0.6 mg/dl (0.2-1.3); Blood Urea Nitrogen 21 mg/dl (7-17); Calcium 8.8 mg/dl (8.4-10.2); Carbon Dioxide 29 mmol/L (22.0-30.0); Chloride 103 mmol/L (98-107); Creatinine Clearance Estimated 43 mL/min (50-200); Estimated Glomerular Filt Rate 83 ml/min (>60); GFR (African American) 101 ML/MIN (>60); Globulin 3.8 g/dL (1.3-3.2); Glucose 118 mg/dl (74-100); Potassium 4.6 mmoL/L (3.5-5.1); Sodium 139 mmol/L (136-145); Total Protein,Serum 8.1 g/dl (6.3-8.2)
[2022-11-23 20:58] LABS: Troponin I < 0.01 ng/ml (0.00-0.034)
--- NOTE | 2022-11-23 22:13 | PC.NURSE ---
Pt up and ambulatory to bathroom
[2022-11-23 23:41] LABS: Troponin I < 0.01 ng/ml (0.00-0.034)
[2022-11-24 00:06] VITALS: BP 157/71; PULSE 64; RESP 16; TEMP 36.7; O2SAT 96
== END 2022-11-24 00:08 | disposition home or self-care (01) ==
PROVIDERS: Emergency Provider Emergency Medicine; PCP Nurse Practitioner Family
DX: R07.89 Other chest pain (principal); I10 Essential (primary) hypertension; H92.02 Otalgia, left ear; R42 Dizziness and giddiness; R47.9 Unspecified speech disturbances; F41.1 Generalized anxiety disorder; F33.9 Major depressive disorder, recurrent, unspecified; Z90.710 Acquired absence of both cervix and uterus; Z96.659 Presence of unspecified artificial knee joint; Z80.9 Family history of malignant neoplasm, unspecified; Z20.822 Contact with and (suspected) exposure to COVID-19
CPT/HCPCS: 70450; 71045; 80053; 81001; 84484; 85025; 93005; 99285; C9803; U0003; U0005

== ENCOUNTER → 2023-01-08 15:25 | Outpatient (CLI) | payer MEDICARE, BC, SELFPAY ==
[2023-01-08 16:37] LABS: Chloride 98 mmol/L (98-107); Potassium 4.3 mmoL/L (3.5-5.1); Sodium 141 mmol/L (136-145)
[2023-01-08 16:40] LABS: Blood Urea Nitrogen 19 mg/dl (7-17); Estimated Glomerular Filt Rate 100 ml/min (>60); GFR (African American) 121 ML/MIN (>60)
[2023-01-08 16:41] LABS: Anion Gap 11.3 mEq/L (5-15); Calcium 9.5 mg/dl (8.4-10.2); Carbon Dioxide 36 mmol/L (22.0-30.0); Glucose 123 mg/dl (74-100)
== END ==
PROVIDERS: PCP Nurse Practitioner Family; Visit Provider Nurse Practitioner
DX: R73.03 Prediabetes (principal); G47.33 Obstructive sleep apnea (adult) (pediatric); I10 Essential (primary) hypertension; R06.09 Other forms of dyspnea; R60.9 Edema, unspecified; Z99.89 Dependence on other enabling machines and devices
CPT/HCPCS: 36415; 80048; 83036

== ENCOUNTER → 2023-01-15 07:41 | Outpatient (CLI) | payer MEDICARE, BC, SELFPAY ==
--- NOTE | 2023-01-15 | CA_ITS ---
APPROVED REPORT EXAM: Comprehensive 2D, Doppler, and color-flow Echocardiogram Photoengraving Supervisor: Nunu Ramirez RT(R) Ht: 5 ft 2 in Wt: 273lbs BSA: 2.18 BP: 149/77 mmHg Indications: COPD, hyperlipidemia, DM, pacemaker, HTN, CAD, obesity 2D Dimensions LVOT 2.01 cm (M/F) 1.5-2.5 LVEF (Rosas's) 58.20 % F: 54 - 74 LV Volume 101.60 mL F: 46 - 106 LV Volume Index 46.61 mL/m2 F: 29 - 61 LA Volume 34.90 mL LA Volume Index 16.01 mL/m2 (M/F) 16-34 M-Mode Dimensions RVDd 3.48 cm (0.9-2.6) LA Diam 3.86 cm (1.9-4.0) LVDd 4.50 cm (3.5-5.7) Ao Diam 2.29 cm (2.0-3.7) LVDs 3.17 cm (3.5-5.7) IVSd 0.98 cm (0.6-1.1) PWd 1.25 cm (0.6-1.1) EF (Teich) 56.70% FS 29.60% EDV (Teich) 92.40 mL TAPSE 2.78 (<1.7) ESV (Teich) 40.00 mL LV Diastology E Decel Time 187.00 (160-240 msec) E/A Ratio 0.9 MED E' 9.90 (< 7 cm/sec) E'/MED E' Ratio 9.15 (>14) LAT E' 6.80 (<10 cm/sec) E/LAT E' Ratio 13.32 (>14) Aortic Valve LVOT Max 135.00 (70-110 cm/s) LVOT VTI 28.98 cm AoV Peak Noé. 188.00 (50-130 cm/s) AO Peak GR. 14.20 mmHg AO Mean GR. 6.90 (<5 mmHg) AO VTI 37.88 (18-25 cm) MADELINE (VTI) 2.43 (2.5-4.5 cm2) Mitral Valve MV E Max Noé. 91.00 (40-130 cm/s) MV A Velocity 103.00 (40-130 cm/s) E/A Ratio 0.88 MV Decel. Time 187.00 (160-240 ms) MV PHT 55.00 ms Left Ventricle Left atrium is mildly enlarged, left ventricle is normal size mild concentric left ventricular hypertrophy, estimated ejection fraction 55% with no regional wall motion abnormality, grade 1 diastolic dysfunction seen without tissue Doppler evidence of raise left atrial pressure. Right Ventricle Right atrium and right ventricular mildly enlarged with normal contractility. Aortic Valve Aortic valve is minimally thickened and fibrosed there is no aortic stenosis or aortic insufficiency. Mitral Valve Mitral valve is grossly normal, there is trace mitral regurgitation. Tricuspid Valve Tricuspid grossly normal, there is trace tricuspid regurgitation, tricuspid regurgitation jet velocity is inadequate for calculation of the right ventricular systolic pressure. Pulmonic Valve Pulmonic valve is poorly visualized. Great Vessels Aortic root is normal size. Inferior vena cava normal size with normal inspiratory collapse. Pericardium No significant pericardial effusion noted. Conclusion 1. Mild biatrial enlargement, normal left ventricular size, mild concentric left ventricular hypertrophy, estimated ejection fraction 55% with no regional wall motion abnormality, grade 1 diastolic dysfunction seen without tissue Doppler evidence of raise left atrial pressure. 2. Mildly enlarged right ventricle with normal contractility. 3. Trace mitral and tricuspid regurgitation. 4. No significant pericardial effusion noted. 5. Inferior vena cava is normal size with normal inspiratory collapse. Electronically signed by : Dylan Harrison MD 01/16/2023 15:03:54
--- NOTE | 2023-01-15 | CA_ITS ---
FINAL REPORT TECHNIQUE: Grayscale, color Doppler and duplex Doppler ultrasound of the kidneys, aorta and renal arteries was performed. Multiple velocities were measured. CLINICAL HISTORY: HTN,OBESITYHTN,HLD FINDINGS: Aorta velocity: 162 cm/sec Right kidney: 8.2 cm. No evidence of hydronephrosis or mass. Right intrarenal RI: 0.67 Right renal artery velocity: 242 cm/sec. Right RAR (Renal artery-Aortic Ratio): 1.5 Left Kidney: 10.8 cm. No evidence of hydronephrosis or mass. Left intrarenal RI: 0.71 Left renal artery velocity: 181 cm/sec. Left RAR (Renal Artery-Aortic Ratio): 1.12 IMPRESSION: Less than 60% bilateral renal artery stenosis. Right kidney is smaller than the left which can be seen with renal artery stenosis or chronic pyelonephritis. Recommend CTA or catheter angiogram for further evaluation. Reviewed, Interpreted and Dictated by Anuj Chowdhury III, MD Transcribed by Crystal Guo Authenticated and [facility]
== END ==
PROVIDERS: PCP Nurse Practitioner Family; Visit Provider Nurse Practitioner
DX: I10 Essential (primary) hypertension (principal); I25.10 Atherosclerotic heart disease of native coronary artery without angina pectoris
CPT/HCPCS: 93306; 93976

== ENCOUNTER → 2023-02-03 14:26 | Outpatient (CLI) | payer MEDICARE, BC, SELFPAY ==
[2023-02-03 16:22] LABS: Alanine Aminotransferase 15 U/L (12-78); Albumin Level 4.2 g/dl (3.5-5.0); Alkaline Phosphatase 83 U/L (38-126); Aspartate Amino Transferase 23 U/L (14-36); Bilirubin,Indirect 0.4 mg/dL (0.0-0.9); Bilirubin,Total 0.4 mg/dl (0.2-1.3); Bilirubin,Unconjugated 0.4 mg/dL (0.0-1.1); Chol/HDL Ratio 5.5 (1-3.5); Cholesterol 247 mg/dl (140-200); HDL Cholesterol 45 mg/dl (40-60); Triglycerides 162 mg/dl (30-150); VLDL Cholesterol 32 mg/dL (0-40)
[2023-02-03 16:33] LABS: Direct LDL Cholesterol 137.55 mg/dL (100-129)
== END ==
PROVIDERS: PCP Nurse Practitioner Family; Visit Provider Nurse Practitioner
DX: E11.9 Type 2 diabetes mellitus without complications (principal); I10 Essential (primary) hypertension; R06.09 Other forms of dyspnea; R60.9 Edema, unspecified
CPT/HCPCS: 36415; 80061; 80076

== ENCOUNTER 2023-02-11 10:44 | Outpatient (CLI) | payer MEDICARE, BC, SELFPAY | END 2023-02-11 11:15 | disposition home or self-care (01) | LOC: INF 10:45 | PROVIDERS: PCP Nurse Practitioner Family; Visit Provider Nurse Practitioner Family | DX: Z45.2 Encounter for adjustment and management of vascular access device (principal) | CPT/HCPCS: 96523; J1642 ==

== ENCOUNTER → 2023-02-16 14:23 | Outpatient (POV) | payer MEDICARE, BC, SELFPAY ==
[2023-02-16 15:00] VITALS: BP 156/59; PULSE 72; RESP 20; BMI 49.4
--- NOTE | 2023-02-16 15:18 | EXP.PAIN.SOA ---
[facility] Pain Management SOAP Note Subjective:: Patient is a pleasant 67-year-old female who presents today for 3-month follow-up and medication refill. We are currently treating the patient for degenerative disc disease of lumbar spine with lumbar radiculopathy symptoms, bilateral knee pain, status post minimally invasive lumbar decompression at L3-L4 and L4-L5. Today she rates her pain a 10 out of 10. Patient denies any new trauma or injury. Patient denies any change location or type of pain she experiences. She continues to have pain in her low back and bilateral knees and describes it as an aching, throbbing sensation that is worse with increased activity. She does use an assistive device for help with ambulation. She is currently managed with pregabalin 150 mg 3 times a day, baclofen 5 mg 3 times a day. Patient denies any side effects from these medications. She is requesting a refill at today's visit along with something additional to help with pain. Her Raoul is [id number]. Its been reviewed and appropriate. Review of Systems: General: No recent weight changes, no fever, no sleep disturbances Respiratory: No cough, no shortness of air, no recurring pulmonary infections Cardiovascular/peripheral vascular: No chest pain, no palpitations, no edema, no shortness of breath Gastrointestinal: No new onset incontinence, normal bowel movements reported Genitourinary: No new onset incontinence Musculoskeletal: Low back pain, bilateral knee pain Psychiatric: [Normal mood/affect] Neurological: [Denies weakness in extremities], [denies balance issues] Objective:: Physical Exam: General: Alert and oriented x3, no acute distress, pleasant and cooperative Lungs: Respirations even and unlabored, symmetrical chest expansion Eyes: PERRL Musculoskeletal: Flexion and extension of lumbar [spine] somewhat guarded secondary to pain, [antalgic gait noted] Neurological: Speech clear, no gross sensory deficit Assessment:: Degenerative disc disease of lumbar spine with lumbar radiculopathy symptoms, bilateral knee pain, status post minimally invasive lumbar decompression at L3-L4 and L4-L5 Plan:: Patient continues to have significant pain in her low back and bilateral knees. Patient had limited range of motion of her lumbar spine during today's visit. I will refill her pregabalin 150 mg 3 times a day, baclofen 5 mg 3 times a day and provide a 1 month of these medications. I will also order the patient tramadol 50 mg daily and provide a 2-week supply of meloxicam 7.5 mg daily. Patient will return to clinic in 2 months for reevaluation of symptoms, medication refill and follow-up. Patient has been instructed to contact the clinic with any concerns before the next appointment. Dr. Ballard has reviewed this note and agrees with this plan of care. This note was dictated using voice recognition software and make contain errors or omissions. [facility] Disclaimer: The information contained in this section may have been updated after the patient was seen, as this information can be updated by other users. Medical History Depression DM2 (diabetes mellitus, type 2) Generalized anxiety disorder HLD (hyperlipidemia) HTN (hypertension) Major depressive disorder Port-A-Cath in place Surgical History H/O eye surgery H/O total hysterectomy H/O total knee replacement History of History of cardiac cath Family History Other Cancer No significant family history Social History Smoking Status: Never smoker alcohol intake: never substance use type: denies use current occupational status: other Travel in the last 8 weeks: None household members: spouse housing: house caffeine: Yes
== END | disposition home or self-care (01) ==
PROVIDERS: PCP Nurse Practitioner Family; Visit Provider Nurse Practitioner Family
DX: M51.16 Intervertebral disc disorders with radiculopathy, lumbar region (principal); M25.561 Pain in right knee; M25.562 Pain in left knee
CPT/HCPCS: 99212; G0463

== ENCOUNTER → 2023-03-18 12:25 | Outpatient (CLI) | payer MEDICARE, BC, SELFPAY ==
[2023-03-18 14:18] LABS: Anion Gap 17.8 mEq/L (5-15); Blood Urea Nitrogen 19 mg/dl (7-17); Calcium 9.3 mg/dl (8.4-10.2); Carbon Dioxide 30 mmol/L (22.0-30.0); Chloride 97 mmol/L (98-107); Estimated Glomerular Filt Rate 72 ml/min (>60); GFR (African American) 87 ML/MIN (>60); Glucose 104 mg/dl (74-100); Potassium 4.8 mmoL/L (3.5-5.1); Sodium 140 mmol/L (136-145)
== END ==
PROVIDERS: Specialist; PCP Nurse Practitioner Family; Visit Provider Nurse Practitioner Family
DX: E11.9 Type 2 diabetes mellitus without complications (principal); G47.33 Obstructive sleep apnea (adult) (pediatric); I10 Essential (primary) hypertension; R06.09 Other forms of dyspnea; R60.9 Edema, unspecified; Z99.89 Dependence on other enabling machines and devices; R47.89 Other speech disturbances; Z79.84 Long term (current) use of oral hypoglycemic drugs; Z79.899 Other long term (current) drug therapy
CPT/HCPCS: 36415; 80048; 84443

== ENCOUNTER → 2023-03-31 16:51 | Outpatient (CLI) | payer MEDICARE, BC, SELFPAY ==
[2023-03-31 17:34] LABS: Basophils # 0.1 K/mm3 (0-0.2); Basophils % 0.7 % (0.1-2.0); Eosinophils # 0.2 K/mm3 (0.0-0.4); Eosinophils % 2.9 % (0.1-12.0); Hematocrit 38.8 % (37.0-47.0); Hemoglobin 12.1 g/dL (12.2-16.2); Lymphocytes # 3.6 K/mm3 (0.7-4.5); Lymphocytes % 45.8 % (10-50); Mean Corpuscular HGB Conc 31.2 g/dL (31.8-35.4); Mean Corpuscular Volume 89.5 fl (81-99); Mean Platelet Volume 7.5 fl (7.4-10.4); Monocytes # 0.5 K/mm3 (0.1-1.0); Monocytes % 6.6 % (1.7-9.3); Neutrophils # 3.4 K/mm3 (1.8-7.8); Neutrophils % 44.1 % (37.0-80.0); Platelet Count 355 K/mm3 (142-424); Red Blood Count 4.33 M/mm3 (4.20-5.40); Red Cell Distribution Width 15.3 % (11.5-17.5); White Blood Count 7.8 K/mm3 (4.8-10.8)
[2023-03-31 17:54] LABS: Alanine Aminotransferase 14 U/L (12-78); Albumin/Globulin Ratio 1.4 (1.1-1.8); Alkaline Phosphatase 87 U/L (38-126); Anion Gap 15.4 mEq/L (5-15); Aspartate Amino Transferase 23 U/L (14-36); Bilirubin,Total 0.3 mg/dl (0.2-1.3); Blood Urea Nitrogen 29 mg/dl (7-17); Calcium 8.8 mg/dl (8.4-10.2); Carbon Dioxide 31 mmol/L (22.0-30.0); Chloride 96 mmol/L (98-107); Cholesterol 211 mg/dl (140-200); Estimated Glomerular Filt Rate 45 ml/min (>60); GFR (African American) 54 ML/MIN (>60); Globulin 2.8 g/dL (1.3-3.2); Glucose 81 mg/dl (74-100); HDL Cholesterol 35 mg/dl (40-60); Potassium 5.4 mmoL/L (3.5-5.1); Sodium 137 mmol/L (136-145); Total Protein,Serum 6.8 g/dl (6.3-8.2); Triglycerides 325 mg/dl (30-150); VLDL Cholesterol 65 mg/dL (0-40)
[2023-03-31 17:58] LABS: 25-OH Vitamin D, Total 25.3 ng/mL (30-100)
[2023-03-31 18:04] LABS: Direct LDL Cholesterol 84.91 mg/dL (100-129)
[2023-03-31 18:11] LABS: Free T4 (Free Thyroxine) 1.03 ng/dl (0.78-2.19)
[2023-03-31 18:25] LABS: Thyroid Stimulating Hormone 2.84 uIU/mL (0.465-4.68)
== END ==
PROVIDERS: PCP Nurse Practitioner Family; Visit Provider Internal Medicine
DX: I10 Essential (primary) hypertension (principal); E78.5 Hyperlipidemia, unspecified; E55.9 Vitamin D deficiency, unspecified; Z13.29 Encounter for screening for other suspected endocrine disorder; Z79.899 Other long term (current) drug therapy
CPT/HCPCS: 36415; 80053; 80061; 82306; 84439; 84443; 85025

== ENCOUNTER → 2023-04-16 13:42 | Outpatient (POV) | payer MEDICARE, BC, SELFPAY ==
--- NOTE | 2023-04-16 14:06 | EXP.PAIN.SOA ---
[facility] Pain Management SOAP Note Subjective:: Patient is a pleasant 68-year-old female who presents today for medication refill and follow-up. We are currently treating the patient for degenerative disc disease of lumbar spine with lumbar radiculopathy symptoms, bilateral knee pain, status post minimally invasive lumbar decompression at L3-L4 and L4-L5. Today she rates her pain a 9 out of 10. Patient denies any new trauma or injury. Patient denies any change in location or type of pain she experiences. Patient states she continues to have pain in her low back and legs along with her bilateral knees. She does describe this as an aching, throbbing sensation that is worse with increased activity. Patient is currently managed with pregabalin 150 mg 3 times a day, tramadol 50 mg daily, meloxicam 7.5 mg daily and baclofen 5 mg 3 times a day. Patient denies any side effects from this medication. She does state that she does not think she needs any refills on her baclofen today. Patient is requesting an increase of her medication during today's visit. Patient does state that she has recently been to her family care doctor who stated that her water pill that she was on had caused her kidneys to be dehydrated. Her PCP has taken her off of this medication and is scheduled to have repeat lab work within the next couple of weeks. Patient's Raoul is [id number]. Its been reviewed and appropriate. Review of Systems: General: No recent weight changes, no fever, no sleep disturbances Respiratory: No cough, no shortness of air, no recurring pulmonary infections Cardiovascular/peripheral vascular: No chest pain, no palpitations, no edema, no shortness of breath Gastrointestinal: No new onset incontinence, normal bowel movements reported Genitourinary: No new onset incontinence Musculoskeletal: Low back pain, leg pain Psychiatric: [Normal mood/affect] Neurological: [Denies weakness in extremities], [denies balance issues] Objective:: Physical Exam: General: Alert and oriented x3, no acute distress, pleasant and cooperative Lungs: Respirations even and unlabored, symmetrical chest expansion Eyes: PERRL Musculoskeletal: Flexion and extension of lumbar [spine] somewhat guarded secondary to pain, [antalgic gait noted] Neurological: Speech clear, no gross sensory deficit Assessment:: Degenerative disc disease of lumbar spine with lumbar radiculopathy symptoms, bilateral knee pain, status post minimally invasive lumbar decompression of L3-L4 and L4-5 Plan:: Patient continues to have significant pain at multiple locations. I have discussed with the patient due to her recent altered kidney function we will not make any additional adjustments to her current medication. I will send in refills of her pregabalin 150 mg 3 times a day, tramadol 50 mg daily and meloxicam 7.5 mg daily and provide a 1 month supply of these medications. I have counseled the patient to drink plenty of fluids and that if her kidney function does not bounce back to what it was prior we will have to alter her current medications and discontinue the tramadol and meloxicam. Patient will return to clinic in 1 month for reevaluation of symptoms, medication refill and follow-up. Patient has been instructed to contact the clinic with any concerns before the next appointment. Dr. Ballard has reviewed this note and agrees with this plan of care. This note was dictated using voice recognition software and make contain errors or omissions. [facility] Disclaimer: The information contained in this section may have been updated after the patient was seen, as this information can be updated by other users. Medical History (Updated 04/14/23 @ 14:40 by Cheryl Burrell RN) Depression DM2 (diabetes mellitus, type 2) Edema Generalized anxiety disorder HLD (hyperlipidemia) HLD (hyperlipidemia) HTN (hypertension) Major depressive disorder Obesity Port-A-Cath in place Surgical History (Reviewed 04/14/23 @ 14:20 by Magi
[2023-04-16 14:07] VITALS: BP 123/62; PULSE 71; RESP 18; TEMP 36.9; O2SAT 95; BMI 49.7
== END | disposition home or self-care (01) ==
PROVIDERS: PCP Nurse Practitioner Family; Visit Provider Nurse Practitioner Family
DX: M51.16 Intervertebral disc disorders with radiculopathy, lumbar region (principal); M25.561 Pain in right knee; M25.562 Pain in left knee; Z98.890 Other specified postprocedural states
CPT/HCPCS: 99212; G0463

== ENCOUNTER → 2023-04-21 16:39 | Outpatient (CLI) | payer MEDICARE, BC, SELFPAY ==
[2023-04-21 17:37] LABS: Hemoglobin A1C 5.7 % (4.0-6.0)
[2023-04-21 17:53] LABS: Anion Gap 16.6 mEq/L (5-15); Blood Urea Nitrogen 20 mg/dl (7-17); Calcium 9.4 mg/dl (8.4-10.2); Carbon Dioxide 27 mmol/L (22.0-30.0); Chloride 101 mmol/L (98-107); Estimated Glomerular Filt Rate 71 ml/min (>60); GFR (African American) 86 ML/MIN (>60); Glucose 111 mg/dl (74-100); Potassium 4.6 mmoL/L (3.5-5.1); Sodium 140 mmol/L (136-145)
== END ==
PROVIDERS: PCP Nurse Practitioner Family; Visit Provider Physician Assistant
DX: E66.9 Obesity, unspecified (principal); E78.5 Hyperlipidemia, unspecified; I10 Essential (primary) hypertension; R60.0 Localized edema; E11.69 Type 2 diabetes mellitus with other specified complication
CPT/HCPCS: 36415; 80048; 83036

== ENCOUNTER → 2023-05-20 14:27 | Outpatient (POV) | payer MEDICARE, BC, SELFPAY ==
--- NOTE | 2023-05-20 14:47 | EXP.PAIN.SOA ---
[facility] Pain Management SOAP Note Subjective:: Patient is a pleasant 68-year-old female who presents today for 1 month follow-up and medication refill. We are currently treating the patient for degenerative disc disease of lumbar spine with lumbar radiculopathy symptoms, bilateral knee pain, status post minimally invasive lumbar decompression at L3-L4 and L4-L5. Today she rates her pain a 5 out of 10. Patient denies any new trauma or injury. Patient denies any change to location or type of pain she experiences. She is currently managed with pregabalin 150 mg 3 times a day, tramadol 50 mg daily, meloxicam 7.5 mg daily and baclofen 5 mg 3 times a day. She denies any side effects from these medications. At her last visit she had been on a water pill however it did cause her kidneys to be dehydrated and they stopped this medication. She does state that everything is good on her numbers now and that they have started back the fluid pill and that she alternates taking it on Wednesdays and Fridays. Her Raoul is [id number]. Its been reviewed and appropriate. Review of Systems: General: No recent weight changes, no fever, no sleep disturbances Respiratory: No cough, no shortness of air, no recurring pulmonary infections Cardiovascular/peripheral vascular: No chest pain, no palpitations, no edema, no shortness of breath Gastrointestinal: No new onset incontinence, normal bowel movements reported Genitourinary: No new onset incontinence Musculoskeletal: Low back pain Psychiatric: [Normal mood/affect] Neurological: [Denies weakness in extremities], [denies balance issues] Objective:: Physical Exam: General: Alert and oriented x3, no acute distress, pleasant and cooperative Lungs: Respirations even and unlabored, symmetrical chest expansion Eyes: PERRL Musculoskeletal: Flexion and extension of lumbar [spine] somewhat guarded secondary to pain, [antalgic gait noted] Neurological: Speech clear, no gross sensory deficit Assessment:: Degenerative disc disease of lumbar spine with lumbar radiculopathy symptoms, bilateral knee pain, status post minimally invasive lumbar decompression at L3-L4 and L4-L5 Plan:: I will refill the patient's pregabalin 150 mg 3 times a day, tramadol 50 mg daily, meloxicam 7.5 mg daily and baclofen 5 mg 3 times a day and provide a 90-day supply of these medications. I have counseled the patient to contact our office if anything changes on her kidney function and that if it were we do have to discontinue the tramadol and meloxicam. Patient will return to clinic in 3 months for reevaluation of symptoms and medication refill. Patient has been instructed to contact the clinic with any concerns before the next appointment. Dr. Ballard has reviewed this note and agrees with this plan of care. This note was dictated using voice recognition software and make contain errors or omissions. [facility] Disclaimer: The information contained in this section may have been updated after the patient was seen, as this information can be updated by other users. Medical History Depression DM2 (diabetes mellitus, type 2) Edema Generalized anxiety disorder HLD (hyperlipidemia) HLD (hyperlipidemia) HTN (hypertension) Major depressive disorder Obesity Port-A-Cath in place Surgical History H/O eye surgery unknown type of surgery H/O total hysterectomy H/O total knee replacement bilateral History of History of cardiac cath Family History Other Cancer No significant family history Social History Smoking Status: Never smoker alcohol intake: never substance use type: denies use current occupational status: retired Travel in the last 8 weeks: None household members: spouse housing: house caffeine:
[2023-05-20 15:31] VITALS: BP 134/80; PULSE 74; RESP 18; O2SAT 96; BMI 49.8
== END | disposition home or self-care (01) ==
PROVIDERS: PCP Nurse Practitioner Family; Visit Provider Nurse Practitioner Family
DX: M51.16 Intervertebral disc disorders with radiculopathy, lumbar region (principal); M25.561 Pain in right knee; M25.562 Pain in left knee; M96.1 Postlaminectomy syndrome, not elsewhere classified
CPT/HCPCS: 99212; G0463

== ENCOUNTER 2023-08-11 12:36 | Outpatient (CLI) | payer MEDICARE, BC, SELFPAY | END 2023-08-11 12:50 | disposition home or self-care (01) | LOC: INF 12:38 | PROVIDERS: PCP Nurse Practitioner Family; Visit Provider Nurse Practitioner Family | DX: Z45.2 Encounter for adjustment and management of vascular access device (principal) | CPT/HCPCS: 96523; J1642 ==

== ENCOUNTER → 2023-08-24 14:41 | Outpatient (POV) | payer MEDICARE, BC, SELFPAY ==
--- NOTE | 2023-08-24 14:57 | EXP.PAIN.SOA ---
[facility] Pain Management SOAP Note Subjective:: This patient is a pleasant 68-year-old female that comes our clinic today for medication refills. We currently treating the patient for degenerative disc lumbar spine multilevels. Lumbar radiculopathy. Bilateral knee pain. Lumbar spinal stenosis. She rates her pain today 08/11. Patient is currently managed from our office with Lyrica 150 mg 1 p.o. 3 times daily. Tramadol 50 mg 1 p.o. daily. However, patient asking for 2 tramadol per day. I think this is reasonable. Meloxicam 7.5 mg 1 p.o. daily. Baclofen 5 mg 1 p.o. 3 times daily. Patient does not report any side effects from the medication. Patient states the medication does help her with active daily living. Patient states she is having a bad day today in terms of pain. Her Raoul #[id number] has been reviewed and appropriate. Objective:: Patient is awake alert Star x3. In no acute distress. Flexion-extension lumbar spine somewhat guarded secondary to pain. Deep tendon reflexes upper and lower extremities normal. Motor strength upper and lower extremities normal. There is no gross sensory deficit. Gait is normal. Assessment:: Degenerative disc lumbar spine multilevels. Lumbar radiculopathy. Bilateral knee pain. Lumbar spinal stenosis. Plan:: We will refill the patient's occasions. We will increase tramadol 50 mg 1 p.o. to twice daily. Otherwise medications remain the same. We will issue 2 refills per medication. Patient lives quite a distance away from the office. She is requesting follow-up every 3 months. [facility] Disclaimer: The information contained in this section may have been updated after the patient was seen, as this information can be updated by other users. Medical History (Updated 08/24/23 @ 14:07 by Yahaira Whitehead MD) Depression DM2 (diabetes mellitus, type 2) Edema Generalized anxiety disorder HLD (hyperlipidemia) HLD (hyperlipidemia) HTN (hypertension) Major depressive disorder Obesity MESHA on CPAP Port-A-Cath in place Surgical History H/O eye surgery H/O total hysterectomy H/O total knee replacement History of History of cardiac cath Family History Other Cancer No significant family history Social History Smoking Status: Never smoker alcohol intake: never substance use type: denies use current occupational status: retired Travel in the last 8 weeks: None household members: spouse housing: house caffeine: Yes
[2023-08-24 15:13] VITALS: BP 139/89; PULSE 70; RESP 18; O2SAT 98; BMI 49.8
== END | disposition home or self-care (01) ==
PROVIDERS: PCP Nurse Practitioner Family; Visit Provider Nurse Anesthetist, Certified Registered
DX: M51.16 Intervertebral disc disorders with radiculopathy, lumbar region (principal); M48.061 Spinal stenosis, lumbar region without neurogenic claudication; M25.561 Pain in right knee; M25.562 Pain in left knee
CPT/HCPCS: 99212; G0463

== ENCOUNTER → 2023-09-03 11:40 | Outpatient (CLI) | payer MEDICARE, BC, SELFPAY ==
[2023-09-03 12:40] LABS: Anion Gap 15.5 mEq/L (5-15); Blood Urea Nitrogen 13 mg/dl (7-17); Calcium 9.6 mg/dl (8.4-10.2); Carbon Dioxide 28 mmol/L (22.0-30.0); Chloride 103 mmol/L (98-107); Estimated Glomerular Filt Rate 71 ml/min (>60); GFR (African American) 86 ML/MIN (>60); Glucose 105 mg/dl (74-100); Magnesium 1.9 mg/dl (1.6-2.3); Potassium 4.5 mmoL/L (3.5-5.1); Sodium 142 mmol/L (136-145)
== END ==
PROVIDERS: PCP Nurse Practitioner Family; Visit Provider Nurse Practitioner
DX: E66.9 Obesity, unspecified (principal); R06.00 Dyspnea, unspecified; R60.9 Edema, unspecified; Z68.42 Body mass index [BMI] 45.0-49.9, adult
CPT/HCPCS: 36415; 80048; 83735

== ENCOUNTER → 2023-09-17 12:13 | Outpatient (CLI) | payer MEDICARE, BC, SELFPAY ==
[2023-09-17 13:31] LABS: Anion Gap 13.7 mEq/L (5-15); Blood Urea Nitrogen 19 mg/dl (7-17); Carbon Dioxide 30 mmol/L (22.0-30.0); Chloride 100 mmol/L (98-107); Potassium 4.7 mmoL/L (3.5-5.1); Sodium 139 mmol/L (136-145)
[2023-09-17 13:32] LABS: Calcium 9.6 mg/dl (8.4-10.2); Estimated Glomerular Filt Rate 62 ml/min (>60); GFR (African American) 75 ML/MIN (>60); Glucose 85 mg/dl (74-100)
== END ==
PROVIDERS: PCP Nurse Practitioner Family; Visit Provider Nurse Practitioner
DX: R60.9 Edema, unspecified; I11.9 Hypertensive heart disease without heart failure
CPT/HCPCS: 36415; 80048

== ENCOUNTER → 2023-11-23 13:09 | Outpatient (POV) | payer MEDICARE, BC, SELFPAY ==
--- NOTE | 2023-11-23 13:18 | A.OFFVIS_ITS ---
[facility] Pain Management SOAP Note Subjective:: Patient is a pleasant 68-year-old female who presents today for 3 month follow- up and medication refill. We are currently treating the patient for degenerative disc disease of lumbar spine with lumbar radiculopathy symptoms, bilateral knee pain, status post minimally invasive lumbar decompression at L3- L4 and L4-L5. Today she rates her pain a 4 out of 10. Patient denies any new trauma or injury. Patient denies any change to location or type of pain she experiences. She is currently managed with pregabalin 150 mg 3 times a day, tramadol 50 mg twice a day, meloxicam 7.5 mg daily and baclofen 5 mg 3 times a day. She denies any side effects from these medications. Her Raoul has been reviewed and appropriate. Review of Systems: General: No recent weight changes, no fever, no sleep disturbances Respiratory: No cough, no shortness of air, no recurring pulmonary infections Cardiovascular/peripheral vascular: No chest pain, no palpitations, no edema, no shortness of breath Gastrointestinal: No new onset incontinence, normal bowel movements reported Genitourinary: No new onset incontinence Musculoskeletal: Low back pain Psychiatric: [Normal mood/affect] Neurological: [Denies weakness in extremities], [denies balance issues] Objective:: Physical Exam: General: Alert and oriented x3, no acute distress, pleasant and cooperative Lungs: Respirations even and unlabored, symmetrical chest expansion Eyes: PERRL Musculoskeletal: Flexion and extension of lumbar [spine] somewhat guarded secondary to pain, [antalgic gait noted] Neurological: Speech clear, no gross sensory deficit Assessment:: Degenerative disc disease of lumbar spine with lumbar radiculopathy symptoms, bilateral knee pain, status post minimally invasive lumbar decompression at L3- L4 and L4-L5 Plan:: I will refill the patient's pregabalin 150 mg 3 times a day, tramadol 50 mg twice a day, baclofen 5 mg 3 times a day and meloxicam 7.5 mg daily and provide a 3-month supply of these medications. Patient will return to clinic in 3 months for reevaluation of symptoms and plan of care. Patient has been advised of risks of oversedation with the prescribed medic ation. Narcan has been offered to the patient in the event of oversedation. Patient has been advised that a family member should also be educated regarding administration of Narcan. Patient has been instructed to contact the clinic with any concerns before the next appointment. Dr. Ballard has reviewed this note and agrees with this plan of care. This note was dictated using voice recognition software and make contain errors or omissions. [facility] Disclaimer: The information contained in this section may have been updated after the patient was seen, as this information can be updated by other users. Medical History Depression DM2 (diabetes mellitus, type 2) Edema Generalized anxiety disorder HLD (hyperlipidemia) HLD (hyperlipidemia) HTN (hypertension) Major depressive disorder Obesity MESHA on CPAP Severe MESHA, back on Auto-PAP with excellent compliance currently on AutoPap 10/14 cm, nasal mask, AHI 2.2. May need to try different mask if persistent or worsening nasal bridge. Port-A-Cath in place Surgical History H/O eye surgery unknown type of surgery H/O total hysterectomy H/O total knee replacement bilateral History of History of cardiac cath Family History Other Cancer No significant family history Social History Smoking Status: Never smoker alcohol intake: never substance use type: denies use current occupational status: retired Travel in the last 8 weeks: None household members: spouse housing: house caffeine: Yes
[2023-11-23 15:10] VITALS: BP 101/77; PULSE 72; RESP 18; O2SAT 95; BMI 44.8
== END | disposition home or self-care (01) ==
PROVIDERS: PCP Nurse Practitioner Family; Visit Provider Nurse Practitioner Family
DX: M51.16 Intervertebral disc disorders with radiculopathy, lumbar region (principal); M25.561 Pain in right knee; M25.562 Pain in left knee
CPT/HCPCS: 99212; G0463

== ENCOUNTER 2024-02-05 09:48 | Outpatient (CLI) | payer MEDICARE, BC, SELFPAY ==
[2024-02-05] MEDS: SODIUM CHLORIDE 0.9% 10ML FLUSH SYRINGE 10 ML IV (10:15)
== END 2024-02-05 10:30 | disposition home or self-care (01) ==
PROVIDERS: PCP Nurse Practitioner Family; Visit Provider Nurse Practitioner Family
DX: Z45.2 Encounter for adjustment and management of vascular access device (principal)
CPT/HCPCS: 96523; J1642

== ENCOUNTER 2024-02-22 13:10 | Outpatient (POV) | payer MEDICARE, BC, SELFPAY ==
[2024-02-22 13:39] VITALS: BP 168/85; PULSE 67; RESP 18; TEMP 36.8; O2SAT 99; BMI 44.8
--- NOTE | 2024-02-22 14:03 | A.OFFVIS_ITS ---
[facility] Pain Management SOAP Note Subjective:: Patient is a pleasant 68-year-old female who presents today for medication refill and 3-month follow-up. Today she rates her pain a 5 out of 10. Patient denies any new trauma or injury. She does state that she continues to have her chronic pain throughout her back and knees. Patient is currently managed with pregabalin 150 mg 3 times a day, tramadol 50 mg twice a day, meloxicam 7.5 mg daily and baclofen 5 mg 3 times a day. She denies any side effects from these medications. Patient does state that she did follow-up with her nurse instructor for regular scheduled visits and that they are doing updated lab work. Her Raoul has been reviewed and is appropriate. Review of Systems: General: No recent weight changes, no fever, no sleep disturbances Respiratory: No cough, no shortness of air, no recurring pulmonary infections Cardiovascular/peripheral vascular: No chest pain, no palpitations, no edema, no shortness of breath Gastrointestinal: No new onset incontinence, normal bowel movements reported Genitourinary: No new onset incontinence Musculoskeletal: Low back pain Psychiatric: [Normal mood/affect] Neurological: [Denies weakness in extremities], [denies balance issues] Objective:: Physical Exam: General: Alert and oriented x3, no acute distress, pleasant and cooperative Lungs: Respirations even and unlabored, symmetrical chest expansion Eyes: PERRL Musculoskeletal: Flexion and extension of lumbar [spine] somewhat guarded secondary to pain, [antalgic gait noted] Neurological: Speech clear, no gross sensory deficit Assessment:: Degenerative disc disease of lumbar spine with lumbar radiculopathy symptoms, bilateral knee pain, status post minimally invasive lumbar decompression at L3- L4 and L4-L5 Plan:: I have discussed with the patient due to seeing a nurse instructor and reviewing over possible altered labs including looking at her kidney function I will hold off on ordering any additional meloxicam. I will refill the patient's pregabalin 150 mg 3 times a day, baclofen 5 mg 3 times a day and increase her tramadol to 50 mg 3 times a day and provide a 3-month supply of this medication. Patient will return to clinic in 3 months for reevaluation of symptoms and plan of care. Risks and benefits of the medication have been explained in detail to the patient. The patient does understand the risk of dependence on the medication when given over a prolonged period. Patient has been advised of risks of oversedation with the prescribed medication. Narcan has been offered to the paitent in the event of over sedation. Patient has been advised that a family member should also be educated regarding administration of Narcan. The patient has been advised to consult with his/her primary care provider and pharmacist regarding drug-drug interaction of medications currently prescribed. Patient has been prescribed a controlled substance after being counseled on the medication, medication safety, and possible side effects. Opioid contract was reviewed and signed by the patient, and that they have agreed to all of the terms set forth by our compliance program. Patient has been instructed to contact the clinic with any concerns before the next appointment. Dr. Ballard has reviewed this note and agrees with this plan of care. This note was dictated using voice recognition software and make contain errors or omissions. [facility] Disclaimer: The information contained in this section may have been updated after the patient was seen, as this information can be updated by other users. Medical History Depression DM2 (diabetes mellitus, type 2) Edema Generalized anxiety disorder HLD (hyperlipidemia) HLD (hyperlipidemia) HTN (hypertension) Major depressive disorder Obesity MESHA on CPAP Severe MESHA, back on Auto-PAP with excellent compliance currently on AutoPap 10/14 cm, nasal mask, AHI 2.2. May need to try different mask if persistent or worsening nasal bridge. Port-A-Cath in place Surgical History H/O eye surgery unknown type of surgery H/O total hysterectomy H/O total knee replacement bilateral History of History of cardiac cath Family History Other Cancer No significant family history Social History Smoking Status: Never smoker alcohol intake: never substance use type: denies use current occupational status: other Travel in the last 8 weeks: None household members: spouse housing: house caffeine: Yes
== END 2024-02-22 23:59 | disposition home or self-care (01) ==
PROVIDERS: Visit Provider Nurse Practitioner Family
DX: M51.16 Intervertebral disc disorders with radiculopathy, lumbar region (principal); M25.561 Pain in right knee; M25.562 Pain in left knee
CPT/HCPCS: 99212; G0463

== ENCOUNTER 2024-05-03 13:56 | Outpatient (CLI) | payer MEDICARE, BC, SELFPAY | END 2024-05-03 14:20 | disposition home or self-care (01) | LOC: INF 13:58 | PROVIDERS: PCP Nurse Practitioner; Visit Provider Nurse Practitioner Family | DX: Z45.2 Encounter for adjustment and management of vascular access device (principal) | CPT/HCPCS: 96523; J1642 ==

== ENCOUNTER 2024-05-23 13:19 | Outpatient (POV) | payer MEDICARE, BC, SELFPAY ==
[2024-05-23 13:22] VITALS: BP 182/86; PULSE 76; RESP 18; O2SAT 95; BMI 44.8
--- NOTE | 2024-05-23 13:45 | A.OFFVIS_ITS ---
[facility] Disclaimer: The information contained in this section may have been updated after the patient was seen, as this information can be updated by other users. Medical History HLD (hyperlipidemia) Obesity Edema DM2 (diabetes mellitus, type 2) Generalized anxiety disorder Major depressive disorder Port-A-Cath in place Depression HLD (hyperlipidemia) HTN (hypertension) MESHA on CPAP Severe MESHA, back on Auto-PAP with excellent compliance currently on AutoPap 10/14 cm, nasal mask, AHI 2.2. May need to try different mask if persistent or worsening nasal bridge. Surgical History H/O eye surgery unknown type of surgery H/O total knee replacement bilateral History of History of cardiac cath H/O total hysterectomy Family History Other Cancer No significant family history Social History Smoking Status: Never smoker alcohol intake: never substance use type: denies use current occupational status: other Travel in the last 8 weeks: None household members: spouse housing: house caffeine: Yes PM Subjective & Objective Subjective Subjective:: Patient is a pleasant 69-year-old female who presents today for medication refill and follow-up. Today she rates her pain a 5 out of 10. Patient denies any new trauma or injury. Patient does state overall she is still doing well with her current medication of pregabalin 150 mg 3 times a day, baclofen 5 mg 3 times a day, tramadol 50 mg 3 times a day meloxicam 7.5 mg daily. She denies any side effects from this medication. Her Raoul has been reviewed and is appropriate. Review of Systems: General: No recent weight changes, no fever, no sleep disturbances Respiratory: No cough, no shortness of air, no recurring pulmonary infections Cardiovascular/peripheral vascular: No chest pain, no palpitations, no edema, no shortness of breath Gastrointestinal: No new onset incontinence, normal bowel movements reported Genitourinary: No new onset incontinence Musculoskeletal: Low back pain Psychiatric: [Normal mood/affect] Neurological: [Denies weakness in extremities], [denies balance issues] Pain at rest (0-10 scale): 5 Objective Objective:: Physical Exam: General: Alert and oriented x3, no acute distress, pleasant and cooperative Lungs: Respirations even and unlabored, symmetrical chest expansion Eyes: PERRL Musculoskeletal: Flexion and extension of lumbar [spine] somewhat guarded secondary to pain, [antalgic gait noted] Neurological: Speech clear, no gross sensory deficit Has patient had previous pain injection?: No Conservative treatment options previously tried: Home exercise plan Length of treatment: Longer than 6 weeks and Prescription medications Length of treatment: Longer than 6 weeks Meds Home Medications and Allergies Home Medications Medication Instructions Recorded Confirmed Type acetaminophen 500 mg tablet 1,000 mg PO Q6H PRN pain 04/16/21 05/23/24 History (Tylenol Extra Strength) aspirin 81 mg tablet,delayed 81 mg PO DAILY heart health 04/16/21 05/23/24 History release (Adult Low Dose Aspirin) metoprolol succinate 100 mg 150 mg PO DAILY BP 07/30/21 05/23/24 History tablet,extended release 24 hr amlodipine 10 mg tablet 10 mg PO DAILY BLOOD PRESSURE 05/19/23 05/23/24 History duloxetine 60 mg capsule,delayed 60 mg PO BID mood 08/24/23 05/23/24 History release furosemide 40 mg tablet (Lasix) 40 mg PO DAILY Fluid #90 tabs 09/03/23 05/23/24 Rx meloxicam 7.5 mg tablet 7.5 mg PO DAILY #270 tabs 11/23/23 05/23/24 Rx buspirone 5 mg tablet 5 mg PO DAILY 12/03/23 05/23/24 History valsartan 160 mg tablet 160 mg PO DAILY BLOOD PRESSURE #30 12/07/23 05/23/24 Rx tabs baclofen 5 mg tablet 5 mg PO TID Pain #270 tabs 02/22/24 05/23/24 Rx pregabalin 150 mg capsule (Lyrica) 150 mg PO TID #270 caps 02/22/24 05/23/24 Rx tramadol 50 mg tablet 50 mg PO TID #270 tabs 02/22/24 05/23/24 Rx spironolactone 25 mg tablet 25 mg PO Q OTHER DAY Fluid #90 tabs 04/14/24 05/23/24 Rx (Aldactone) semaglutide 2 mg/dose (8 mg/3 mL) 2 mg (0.75 mL) SQ WEEKLY #3 mL 05/20/24 05/23/24 Rx subcutaneous pen injector (Ozempic) New Prescriptions to Start Prescriptions: Allergies Allergy/AdvReac Type Severity Reaction Status Date / Time codeine Allergy Vomiting Verified 05/23/24 13:22 naproxen [From Naprosyn] Allergy Unknown Verified 05/23/24 13:22 allergy reaction propoxyphene Allergy Unknown Verified 05/23/24 13:22 [From Darvocet-N] allergy reaction levofloxacin [From Levaquin] AdvReac Intermediate Verified 05/23/24 13:22 IVP DYE Allergy Unknown Uncoded 12/03/23 13:20 allergy reaction UNKNOWN ANTIBIOTIC Allergy Unknown Uncoded 12/03/23 13:20 allergy reaction Assessment and Plan *Assessment and plan (1) Degenerative disc disease, lumbar: Problem Comment: Currently stable, active follow-up with pain management and ambulatory with minimal support. Status: Chronic Category: Medical Code(s): M51.36 - Other intervertebral disc degeneration, lumbar region (2) Lumbar radiculopathy: Problem Comment: Status post minimally invasive decompression Status: Chronic Category: Medical Code(s): M54.16 - Radiculopathy, lumbar region (3) Spinal stenosis, lumbar: Status: Chronic Qualifiers: Neurogenic claudication status: with neurogenic claudication Qualified Code(s): M48.062 - Spinal stenosis, lumbar region with neurogenic claudication Category: Medical Code(s): M48.061 - Spinal stenosis, lumbar region without neurogenic claudication Plan I will refill the patient's pregabalin, tramadol, meloxicam and baclofen and provide a 3-month supply of this medication. Patient will return to clinic in 3 months for reevaluation of symptoms and plan of care. Risks and benefits of the medication have been explained in detail to the patient. The patient does understand the risk of dependence on the medication when given over a prolonged period. Patient has been advised of risks of oversedation with the prescribed medication. Narcan has been offered to the paitent in the event of oversedation. Patient has been advised that a family member should also be educated regarding administration of Narcan. The patient has been advised to consult with his/her primary care provider and pharmacist regarding drug-drug interaction of medications currently prescribed. Patient has been prescribed a controlled substance after being counseled on the medication, medication safety, and possible side effects. Opioid contract was reviewed and signed by the patient, and that they have agreed to all of the terms set forth by our compliance program. Patient has been instructed to contact the clinic with any concerns before the next appointment. Dr. Ballard has reviewed this note and agrees with this plan of care. This note was dictated using voice recognition software and make contain errors or omissions.
== END 2024-05-23 23:59 | disposition home or self-care (01) ==
PROVIDERS: Visit Provider Nurse Practitioner Family
DX: M51.36 Other intervertebral disc degeneration, lumbar region (principal); M54.16 Radiculopathy, lumbar region; M48.062 Spinal stenosis, lumbar region with neurogenic claudication; G89.29 Other chronic pain
CPT/HCPCS: 99212; G0463

== ENCOUNTER 2024-06-01 13:15 | Outpatient (CLI) | payer MEDICARE, BC, SELFPAY ==
[2024-06-01 13:58] LABS: Basophils # 0.1 K/mm3 (0-0.2); Eosinophils # 0.2 K/mm3 (0.0-0.4); Eosinophils % 2.7 % (0.1-12.0); Hematocrit 42.1 % (37.0-47.0); Hemoglobin 13.5 g/dL (12.2-16.2); Lymphocytes # 3.1 K/mm3 (0.7-4.5); Lymphocytes % 43.2 % (10-50); Mean Corpuscular HGB Conc 31.9 g/dL (31.8-35.4); Mean Corpuscular Hemoglobin 30.8 pg (27.0-31.2); Mean Corpuscular Volume 96.4 fl (81-99); Mean Platelet Volume 7.4 fl (7.4-10.4); Monocytes # 0.4 K/mm3 (0.1-1.0); Neutrophils # 3.4 K/mm3 (1.8-7.8); Neutrophils % 47.1 % (37.0-80.0); Platelet Count 348 K/mm3 (142-424); Red Blood Count 4.37 M/mm3 (4.20-5.40); Red Cell Distribution Width 14.7 % (11.5-17.5); White Blood Count 7.2 K/mm3 (4.8-10.8)
[2024-06-01 14:33] LABS: Alanine Aminotransferase 17 U/L (12-78); Albumin Level 3.9 g/dl (3.5-5.0); Alkaline Phosphatase 85 U/L (38-126); Aspartate Amino Transferase 27 U/L (14-36); Bilirubin,Indirect 0.5 mg/dL (0.0-0.9); Bilirubin,Total 0.5 mg/dl (0.2-1.3); Bilirubin,Unconjugated 0.6 mg/dL (0.0-1.1); Blood Urea Nitrogen 20 mg/dl (7-17); Calcium 9.3 mg/dl (8.4-10.2); Carbon Dioxide 33 mmol/L (22.0-30.0); Chloride 101 mmol/L (98-107); Chol/HDL Ratio 5.3 (1-3.5); Cholesterol 259 mg/dl (140-200); Estimated Glomerular Filt Rate 71 ml/min (>60); GFR (African American) 86 ML/MIN (>60); Glucose 98 mg/dl (74-100); HDL Cholesterol 49 mg/dl (40-60); Magnesium 1.9 mg/dl (1.6-2.3); Potassium 4.5 mmoL/L (3.5-5.1); Triglycerides 143 mg/dl (30-150); VLDL Cholesterol 29 mg/dL (0-40)
[2024-06-01 14:44] LABS: Direct LDL Cholesterol 130.76 mg/dL (100-129)
[2024-06-01 14:45] LABS: Anion Gap 10.5 mEq/L (5-15); Sodium 140 mmol/L (136-145)
[2024-06-01 14:49] LABS: Free T4 (Free Thyroxine) 0.97 ng/dl (0.78-2.19)
[2024-06-01 15:04] LABS: Thyroid Stimulating Hormone 1.44 uIU/mL (0.465-4.68)
== END 2024-06-01 23:59 | disposition home or self-care (01) ==
LOC: LAB 13:16
PROVIDERS: PCP Nurse Practitioner; Visit Provider Nurse Practitioner
DX: I10 Essential (primary) hypertension (principal); E78.5 Hyperlipidemia, unspecified; E11.9 Type 2 diabetes mellitus without complications; E66.9 Obesity, unspecified; Z68.42 Body mass index [BMI] 45.0-49.9, adult; Z79.85 Long-term (current) use of injectable non-insulin antidiabetic drugs
CPT/HCPCS: 36415; 80048; 80061; 80076; 83735; 84439; 84443; 85025

== ENCOUNTER 2024-06-21 11:00 | Outpatient (CLI) | payer MEDICARE, BC, SELFPAY ==
--- NOTE | 2024-06-21 11:06 | MM_ITS ---
PROCEDURE INFORMATION: Exam: MG Bilateral Screening 3D Mammography Exam date and time: 06/21/2024 10:58 AM Age: 69 years old Clinical indication: Screening examination TECHNIQUE: Imaging protocol: Bilateral Screening tomosynthesis and 2D mammography including computer-aided detection (CAD) when performed. COMPARISON: No relevant prior studies available. FINDINGS: MAMMOGRAPHY: Breast composition: The breasts are almost entirely fatty. Mass: None. Architectural distortion: None. Calcifications: No suspicious calcifications. Asymmetric density: None. Skin thickening: None. Axillary adenopathy: None. IMPRESSION: No mammographic evidence of malignancy. Annual screening is recommended unless otherwise clinically indicated. ASSESSMENT: BI-RADS Category 1: Negative
== END 2024-06-21 23:59 | disposition home or self-care (01) ==
LOC: RAD 11:02
PROVIDERS: PCP Family Medicine; Visit Provider Nurse Practitioner
DX: Z12.31 Encounter for screening mammogram for malignant neoplasm of breast (principal)
CPT/HCPCS: 77063; 77067

== ENCOUNTER 2024-08-22 13:28 | Outpatient (POV) | payer MEDICARE, BC, SELFPAY ==
--- NOTE | 2024-08-22 14:04 | EXP.PAIN.SOA ---
[facility] Disclaimer: The information contained in this section may have been updated after the patient was seen, as this information can be updated by other users. Medical History HLD (hyperlipidemia) Obesity Edema DM2 (diabetes mellitus, type 2) Generalized anxiety disorder Major depressive disorder Port-A-Cath in place Depression HLD (hyperlipidemia) HTN (hypertension) MESHA on CPAP Severe MESHA, back on Auto-PAP with excellent compliance currently on AutoPap 10/14 cm, nasal mask, AHI 2.3. [place] [facility] [place] [facility] Surgical History H/O eye surgery unknown type of surgery H/O total knee replacement bilateral History of History of cardiac cath H/O total hysterectomy Family History Other Cancer No significant family history Social History Smoking Status: Never smoker alcohol intake: never substance use type: denies use current occupational status: other Travel in the last 8 weeks: None household members: spouse housing: house caffeine: Yes PM Subjective & Objective Subjective Subjective:: Patient is a pleasant 69-year-old female who presents today for medication refill and 3-month follow-up. Today she rates her pain a 5 out of 10. Patient denies any new trauma or injury. She does state overall she has been doing well. Patient is currently managed with pregabalin 150 mg 3 times a day, baclofen 5 mg 3 times a day, meloxicam 7.5 mg daily and tramadol 50 mg 3 times a day. She denies any side effects from this medication. She states that she does need refills on all of these. Her Raoul has been reviewed and is appropriate. Review of Systems: General: No recent weight changes, no fever, no sleep disturbances Respiratory: No cough, no shortness of air, no recurring pulmonary infections Cardiovascular/peripheral vascular: No chest pain, no palpitations, no edema, no shortness of breath Gastrointestinal: No new onset incontinence, normal bowel movements reported Genitourinary: No new onset incontinence Musculoskeletal: Low back pain Psychiatric: [Normal mood/affect] Neurological: [Denies weakness in extremities], [denies balance issues] Pain at rest (0-10 scale): 5 Objective Objective:: Physical Exam: General: Alert and oriented x3, no acute distress, pleasant and cooperative Lungs: Respirations even and unlabored, symmetrical chest expansion Eyes: PERRL Musculoskeletal: Flexion and extension of lumbar [spine] somewhat guarded secondary to pain, [antalgic gait noted] Neurological: Speech clear, no gross sensory deficit Has patient had previous pain injection?: No Conservative treatment options previously tried: Home exercise plan Length of treatment: Longer than 12 weeks Meds Home Medications and Allergies Home Medications ?Medication ?Instructions ?Recorded ?Confirmed ?Type acetaminophen 500 mg tablet 1,000 mg PO Q6H PRN pain 04/16/21 06/02/24 History (Tylenol Extra Strength) aspirin 81 mg tablet,delayed 81 mg PO DAILY heart health 04/16/21 06/02/24 History release (Adult Low Dose Aspirin) metoprolol succinate 100 mg 150 mg PO DAILY BP 07/30/21 06/02/24 History tablet,extended release 24 hr amlodipine 10 mg tablet 10 mg PO DAILY BLOOD PRESSURE 05/19/23 06/02/24 History duloxetine 60 mg capsule,delayed 60 mg PO BID mood 08/24/23 06/02/24 History release buspirone 5 mg tablet 5 mg PO DAILY 12/03/23 06/02/24 History spironolactone 25 mg tablet 25 mg PO Q OTHER DAY Fluid #90 tabs 04/14/24 06/02/24 Rx (Aldactone) semaglutide 2 mg/dose (8 mg/3 mL) 2 mg (0.75 mL) SQ WEEKLY #3 mL 05/20/24 06/02/24 Rx subcutaneous pen injector (Ozempic) baclofen 5 mg tablet 5 mg PO TID Pain #270 tabs 05/23/24 06/02/24 Rx meloxicam 7.5 mg tablet 7.5 mg PO DAILY #270 tabs 05/23/24 06/02/24 Rx pregabalin 150 mg capsule (Lyrica) 150 mg PO TID #270 caps 05/23/24 06/02/24 Rx tramadol 50 mg tablet 50 mg PO BID 06/02/24 History furosemide 40 mg tablet See Rx Instructions .Route 07/11/24 Rx .COMPLEX #90 tabs valsartan 160 mg tablet 160 mg PO DAILY BLOOD PRESSURE #30 07/18/24 Rx tabs New Prescriptions to Start Prescriptions: Allergies Allergy/AdvReac Type Severity Reaction Status Date / Time codeine Allergy Vomiting Verified 06/02/24 13:11 naproxen [From Naprosyn] Allergy Unknown Verified 06/02/24 13:11 allergy reaction propoxyphene Allergy Unknown Verified 06/02/24 13:11 [From Darvocet-N] allergy reaction levofloxacin [From Levaquin] AdvReac Intermediate Verified 06/02/24 13:11 IVP DYE Allergy Unknown Uncoded 06/02/24 13:11 allergy reaction UNKNOWN ANTIBIOTIC Allergy Unknown Uncoded 06/02/24 13:11 allergy reaction Assessment and Plan *Assessment and plan (1) Degenerative disc disease, lumbar: Problem Comment: Currently stable, active follow-up with pain management and ambulatory with minimal support. Status: Chronic Category: Medical Code(s): M51.36 - Other intervertebral disc degeneration, lumbar region (2) Lumbar radiculopathy: Problem Comment: Status post minimally invasive decompression Status: Chronic Category: Medical Code(s): M54.16 - Radiculopathy, lumbar region Plan I will send in a 90-day supply of her baclofen, meloxicam, pregabalin and tramadol. Patient will return to clinic in 3 months for reevaluation of symptoms and plan of care. Risks and benefits of the medication have been explained in detail to the patient. The patient does understand the risk of dependence on the medication when given over a prolonged period. Patient has been advised of risks of oversedation with the prescribed medication. Narcan has been offered to the paitent in the event of oversedation. Patient has been advised that a family member should also be educated regarding administration of Narcan. The patient has been advised to consult with his/her primary care provider and pharmacist regarding drug-drug interaction of medications currently prescribed. Patient has been prescribed a controlled substance after being counseled on the medication, medication safety, and possible side effects. Opioid contract was reviewed and signed by the patient, and that they have agreed to all of the terms set forth by our compliance program. Patient has been instructed to contact the clinic with any concerns before the next appointment. Dr. Ballard has reviewed this note and agrees with this plan of care. This note was dictated using voice recognition software and make contain errors or omissions.
[2024-08-22 14:40] VITALS: BP 160/86; PULSE 63; RESP 16; O2SAT 95; BMI 46.8
== END 2024-08-22 23:59 | disposition home or self-care (01) ==
PROVIDERS: PCP Family Medicine; Visit Provider Nurse Practitioner Family
DX: M51.16 Intervertebral disc disorders with radiculopathy, lumbar region (principal); Z96.653 Presence of artificial knee joint, bilateral; Z79.85 Long-term (current) use of injectable non-insulin antidiabetic drugs
CPT/HCPCS: 99212; G0463

== ENCOUNTER 2024-11-10 13:47 | Outpatient (CLI) | payer MEDICARE, BC, SELFPAY ==
[2024-11-10] MEDS: SODIUM CHLORIDE 0.9% 10ML FLUSH SYRINGE 10 ML IV (14:05)
== END 2024-11-10 14:10 | disposition home or self-care (01) ==
LOC: INF 13:52
PROVIDERS: PCP Family Medicine; Visit Provider Nurse Practitioner
DX: Z45.9 Encounter for adjustment and management of unspecified implanted device (principal)
CPT/HCPCS: 96523; J1642

== ENCOUNTER 2024-11-23 13:22 | Outpatient (POV) | payer MEDICARE, BC, SELFPAY ==
[2024-11-23 13:46] VITALS: BP 149/86; PULSE 74; RESP 14; O2SAT 97; BMI 45.7
--- NOTE | 2024-11-23 14:04 | A.OFFVIS_ITS ---
[facility] Disclaimer: The information contained in this section may have been updated after the patient was seen, as this information can be updated by other users. Medical History HLD (hyperlipidemia) Obesity Edema DM2 (diabetes mellitus, type 2) Generalized anxiety disorder Major depressive disorder Port-A-Cath in place Depression HLD (hyperlipidemia) HTN (hypertension) MESHA on CPAP Severe MESHA, back on Auto-PAP with excellent compliance currently on AutoPap 10/14 cm, nasal mask, AHI 2.3. [place], [facility] [place], [facility] Surgical History H/O eye surgery unknown type of surgery H/O total knee replacement bilateral History of History of cardiac cath H/O total hysterectomy Family History Other Cancer No significant family history Social History Smoking Status: Never smoker alcohol intake: never substance use type: denies use current occupational status: other Travel in the last 8 weeks: None household members: spouse housing: house caffeine: Yes PM Subjective & Objective Subjective Subjective:: Patient is a pleasant 69-year-old female who presents today for 3-month follow- up and medication refill. Today she rates her pain a 6 out of 10. She denies any new trauma or injury. She is currently managed with pregabalin 150 mg 3 times a day, baclofen 5 mg 3 times a day, meloxicam 7.5 mg daily and tramadol 50 mg 3 times a day. She denies any side effects from this medication. Patient is requesting if we can go up on the meloxicam a little bit. Patient denies any heart or kidney issues. Her Raoul has been reviewed and is appropriate. Review of Systems: General: No recent weight changes, no fever, no sleep disturbances Respiratory: No cough, no shortness of air, no recurring pulmonary infections Cardiovascular/peripheral vascular: No chest pain, no palpitations, no edema, no shortness of breath Gastrointestinal: No new onset incontinence, normal bowel movements reported Genitourinary: No new onset incontinence Musculoskeletal: Low back pain Psychiatric: [Normal mood/affect] Neurological: [Denies weakness in extremities], [denies balance issues] Pain at rest (0-10 scale): 6 Objective Objective:: Physical Exam: General: Alert and oriented x3, no acute distress, pleasant and cooperative Lungs: Respirations even and unlabored, symmetrical chest expansion Eyes: PERRL Musculoskeletal: Flexion and extension of lumbar [spine] somewhat guarded secondary to pain, [antalgic gait noted] Neurological: Speech clear, no gross sensory deficit Has patient had previous pain injection?: No Conservative treatment options previously tried: Prescription medications Length of treatment: Longer than 12 weeks Meds Home Medications and Allergies Home Medications ?Medication ?Instructions ?Recorded ?Confirmed ?Type acetaminophen 500 mg tablet 1,000 mg PO Q6H PRN pain 04/16/21 11/23/24 History (Tylenol Extra Strength) aspirin 81 mg tablet,delayed 81 mg PO DAILY heart health 04/16/21 11/23/24 History release (Adult Low Dose Aspirin) metoprolol succinate 100 mg 150 mg PO DAILY BP 07/30/21 11/23/24 History tablet,extended release 24 hr duloxetine 60 mg capsule,delayed 60 mg PO BID mood 08/24/23 11/23/24 History release buspirone 5 mg tablet 5 mg PO DAILY 12/03/23 11/23/24 History spironolactone 25 mg tablet 25 mg PO Q OTHER DAY Fluid #90 tabs 04/14/24 11/23/24 Rx (Aldactone) furosemide 40 mg tablet See Rx Instructions .Route 07/11/24 11/23/24 Rx .COMPLEX #90 tabs valsartan 160 mg tablet 160 mg PO DAILY BLOOD PRESSURE #30 07/18/24 11/23/24 Rx tabs meloxicam 7.5 mg tablet 7.5 mg PO DAILY #270 tabs 08/22/24 11/23/24 Rx pregabalin 150 mg capsule (Lyrica) 150 mg PO TID #270 caps 08/22/24 11/23/24 Rx tramadol 50 mg tablet 50 mg PO TID #270 tabs 08/22/24 11/23/24 Rx baclofen 5 mg tablet 5 mg PO TID PRN Pain 08/29/24 11/23/24 History semaglutide 2 mg/dose (8 mg/3 mL) See Rx Instructions .Route 11/10/24 11/23/24 R x subcutaneous pen injector (Ozempic) .COMPLEX #3 mL New Prescriptions to Start Prescriptions: Allergies Allergy/AdvReac Type Severity Reaction Status Date / Time codeine Allergy Vomiting Verified 08/29/24 08:03 naproxen (From Naprosyn) Allergy Unknown Verified 08/29/24 08:03 allergy reaction propoxyphene (From Allergy Unknown Verified 08/29/24 08:03 Darvocet-N) allergy reaction levofloxacin (From Levaquin) AdvReac Intermediate Verified 08/29/24 08:03 IVP DYE Allergy Unknown Uncoded 06/02/24 13:11 allergy reaction UNKNOWN ANTIBIOTIC Allergy Unknown Uncoded 06/02/24 13:11 allergy reaction Assessment and Plan *Assessment and plan (1) Degenerative disc disease, lumbar: Problem Comment: Currently stable, active follow-up with pain management and ambulatory with minimal support. Status: Chronic Category: Medical Code(s): M51.369 - Other intervertebral disc degeneration, lumbar region without mention of lumbar back pain or lower extremity pain (2) Lumbar radiculopathy: Problem Comment: Status post minimally invasive decompression Status: Chronic Category: Medical Code(s): M54.16 - Radiculopathy, lumbar region Plan I did discuss at length with the patient regarding any heart or kidney issues. Patient states that she has not had recent lab work however should be having it coming up. I did discuss with her if any changes such as heart or altered kidney function are shown that I do want her to call our office so we were made aware and that we would have to see about discontinuing the meloxicam. I will refill her pregabalin, baclofen and tramadol and send a 3-month supply of this medication. I will also make the meloxicam 7.5 mg twice a day. Patient acknowledges understanding agrees with plan of care. Risks and benefits of the medication have been explained in detail to the patient. The patient does understand the risk of dependence on the medication when given over a prolonged period. Patient has been advised of risks of oversedation with the prescribed medication. Narcan has been offered to the paitent in the event of oversedation. Patient has been advised that a family member should also be educated regarding administration of Narcan. The patient has been advised to consult with his/her primary care provider and pharmacist regarding drug-drug interaction of medications currently prescribed. Patient has been prescribed a controlled substance after being counseled on the medication, medication safety, and possible side effects. Opioid contract was reviewed and signed by the patient, and that they have agreed to all of the terms set forth by our compliance program. A UDS is needed to verify patient's compliance with our office pain contract. This is ordered based off specific treatments related to chronic pain with the potential to abuse certain medications. Patient has been instructed to contact the clinic with any concerns before the next appointment. Dr. Ballard has reviewed this note and agrees with this plan of care. This note was dictated using voice recognition software and make contain errors or omissions.
== END 2024-11-23 23:59 | disposition home or self-care (01) ==
PROVIDERS: PCP Nurse Practitioner; Visit Provider Nurse Practitioner Family
DX: M51.16 Intervertebral disc disorders with radiculopathy, lumbar region (principal); Z79.85 Long-term (current) use of injectable non-insulin antidiabetic drugs
CPT/HCPCS: 99212; G0463

== ENCOUNTER 2024-12-15 13:02 | Outpatient (CLI) | payer MEDICARE, BC, SELFPAY ==
[2024-12-15 13:20] LABS: Basophils # 0.1 K/mm3 (0-0.2); Basophils % 0.9 % (0.1-2.0); Eosinophils # 0.2 K/mm3 (0.0-0.4); Eosinophils % 3.4 % (0.1-12.0); Hematocrit 40.2 % (37.0-47.0); Hemoglobin 13.2 g/dL (12.2-16.2); Lymphocytes # 2.9 K/mm3 (0.7-4.5); Mean Corpuscular HGB Conc 32.8 g/dL (31.8-35.4); Mean Corpuscular Hemoglobin 30.7 pg (27.0-31.2); Mean Corpuscular Volume 93.5 fl (81-99); Mean Platelet Volume 9.2 fl (7.4-10.4); Monocytes # 0.7 K/mm3 (0.1-1.0); Monocytes % 9.7 % (1.7-9.3); Neutrophils % 43.9 % (37.0-80.0); Platelet Count 307 K/mm3 (142-424); Red Cell Distribution Width 13.6 % (11.5-17.5); White Blood Count 6.8 K/mm3 (4.8-10.8)
[2024-12-15 14:18] LABS: Albumin Level 4.2 g/dl (3.5-5.0); Chloride 100 mmol/L (98-107); Potassium 5.3 mmoL/L (3.5-5.1); Sodium 139 mmol/L (136-145)
[2024-12-15 14:20] LABS: Alanine Aminotransferase 16 U/L (12-78); Anion Gap 11.3 mEq/L (5-15); Aspartate Amino Transferase 25 U/L (14-36); Bilirubin,Unconjugated 0.3 mg/dL (0.0-1.1); Blood Urea Nitrogen 21 mg/dl (7-17); Carbon Dioxide 33 mmol/L (22.0-30.0); Estimated Glomerular Filt Rate 71 ml/min (>60); GFR (African American) 86 ML/MIN (>60)
[2024-12-15 14:21] LABS: Alkaline Phosphatase 66 U/L (38-126); Bilirubin,Direct 0.1 mg/dl (0.0-0.4); Bilirubin,Indirect 0.3 mg/dL (0.0-0.9); Bilirubin,Total 0.4 mg/dl (0.2-1.3); Calcium 9.2 mg/dl (8.4-10.2); Cholesterol 251 mg/dl (140-200); Glucose 102 mg/dl (74-100); HDL Cholesterol 42 mg/dl (40-60); Total Protein,Serum 6.7 g/dl (6.3-8.2); Triglycerides 186 mg/dl (30-150); VLDL Cholesterol 37 mg/dL (0-40)
[2024-12-15 14:36] LABS: Free T4 (Free Thyroxine) 1.17 ng/dl (0.78-2.19)
[2024-12-15 14:38] LABS: Direct LDL Cholesterol 133.68 mg/dL (100-129)
[2024-12-15 14:51] LABS: Thyroid Stimulating Hormone 1.77 uIU/mL (0.465-4.68)
[2024-12-15 16:57] LABS: Hemoglobin A1C 5.4 % (4.0-6.0)
== END 2024-12-15 23:59 | disposition home or self-care (01) ==
LOC: LAB 13:04
PROVIDERS: PCP Nurse Practitioner; Visit Provider Physician Assistant
DX: E11.9 Type 2 diabetes mellitus without complications (principal); E78.5 Hyperlipidemia, unspecified; I10 Essential (primary) hypertension; R60.0 Localized edema; E66.9 Obesity, unspecified; Z68.42 Body mass index [BMI] 45.0-49.9, adult
CPT/HCPCS: 36415; 80048; 80061; 80076; 83036; 83735; 84439; 84443; 85025

== ENCOUNTER 2025-02-20 13:38 | Outpatient (POV) | payer MEDICARE, BC, SELFPAY ==
[2025-02-20 13:47] VITALS: BP 129/61; PULSE 94; RESP 16; O2SAT 96; BMI 47.5
--- NOTE | 2025-02-20 13:54 | A.OFFVIS_ITS ---
[facility] Disclaimer: The information contained in this section may have been updated after the patient was seen, as this information can be updated by other users. Medical History HLD (hyperlipidemia) Obesity Edema DM2 (diabetes mellitus, type 2) Generalized anxiety disorder Major depressive disorder Port-A-Cath in place Depression HLD (hyperlipidemia) HTN (hypertension) MESHA on CPAP Severe MESHA, back on Auto-PAP with goo compliance, currently on AutoPap 10/14 cm, nasal mask, [place], [facility]. Advised to try different mask due to pressure leak. Surgical History H/O eye surgery unknown type of surgery H/O total knee replacement bilateral History of History of cardiac cath H/O total hysterectomy Family History Other Cancer No significant family history Social History Smoking Status: Never smoker alcohol intake: never substance use type: denies use current occupational status: other Travel in the last 8 weeks: None household members: spouse housing: house caffeine: Yes PM Subjective & Objective Subjective Subjective:: Patient is a pleasant 69-year-old female who presents today for her 3-month follow-up and medication refill. Today she rates her pain a 6 out of 10. She does state from our last visit she has had a fall. She states that she was working out in the yard and that they were pulling weeds and she ended up tripping causing her to stumble. She states that she did end up bumping her head but does not believe she did anything significant. Patient is currently managed with pregabalin 150 mg 3 times a day, baclofen 5 mg 3 times a day, meloxicam 7.5 mg twice a day and tramadol 50 mg 3 times a day. She denies any side effects from this medication. Patient denies any changes on heart or kidney function. Her Raoul has been reviewed. Review of Systems: General: No recent weight changes, no fever, no sleep disturbances Respiratory: No cough, no shortness of air, no recurring pulmonary infections Cardiovascular/peripheral vascular: No chest pain, no palpitations, no edema, no shortness of breath Gastrointestinal: No new onset incontinence, normal bowel movements reported Genitourinary: No new onset incontinence Musculoskeletal: Low back pain Psychiatric: [Normal mood/affect] Neurological: [Denies weakness in extremities], [denies balance issues] Pain at rest (0-10 scale): 6 Objective Objective:: Physical Exam: General: Alert and oriented x3, no acute distress, pleasant and cooperative Lungs: Respirations even and unlabored, symmetrical chest expansion Eyes: PERRL Musculoskeletal: Flexion and extension of lumbar [spine] somewhat guarded secondary to pain, [antalgic gait noted] Neurological: Speech clear, no gross sensory deficit Has patient had previous pain injection?: No Conservative treatment options previously tried: Home exercise plan Length of treatment: Longer than 12 weeks Meds Home Medications and Allergies Home Medications ?Medication ?Instructions ?Recorded ?Confirmed ?Type acetaminophen 500 mg tablet 1,000 mg PO Q6H PRN pain 04/16/21 02/20/25 History (Tylenol Extra Strength) aspirin 81 mg tablet,delayed 81 mg PO DAILY heart health 04/16/21 02/20/25 History release (Adult Low Dose Aspirin) metoprolol succinate 100 mg 150 mg PO DAILY BP 07/30/21 02/20/25 History tablet,extended release 24 hr duloxetine 60 mg capsule,delayed 60 mg PO BID mood 08/24/23 02/20/25 History release furosemide 40 mg tablet See Rx Instructions .Route 07/11/24 02/20/25 Rx .COMPLEX #90 tabs baclofen 5 mg tablet 5 mg PO TID PRN Pain #270 tabs 11/23/24 02/20/25 Rx meloxicam 7.5 mg tablet 7.5 mg PO BID #540 tabs 11/23/24 02/20/25 Rx pregabalin 150 mg capsule (Lyrica) 150 mg PO TID #270 caps 11/23/24 02/20/25 Rx tramadol 50 mg tablet 50 mg PO TID #270 tabs 11/23/24 02/20/25 Rx amlodipine 10 mg tablet 10 mg PO DAILY 12/05/24 02/20/25 History clindamycin HCl 300 mg capsule 300 mg PO TID 12/05/24 02/20/25 History ondansetron HCl 4 mg tablet 4 mg PO DAILY 12/05/24 02/20/25 History atorvastatin 40 mg tablet 40 mg PO DAILY #90 tabs 12/16/24 02/20/25 Rx spironolactone 25 mg tablet 25 mg PO DIRECTED Fluid #90 tabs 12/16/24 02/20/25 Rx (Aldactone) tirzepatide 5 mg/0.5 mL 5 mg (0.5 mL) SQ WEEKLY 30 days 01/30/25 02/20/25 Rx subcutaneous pen injector #2.5 mL valsartan 160 mg tablet 160 mg PO DAILY BLOOD PRESSURE #30 01/30/25 02/20/25 Rx tabs New Prescriptions to Start Prescriptions: Allergies Allergy/AdvReac Type Severity Reaction Status Date / Time codeine Allergy Vomiting Verified 01/30/25 14:29 naproxen (From Naprosyn) Allergy Unknown Verified 01/30/25 14:29 allergy reaction propoxyphene (From Allergy Unknown Verified 01/30/25 14:29 Darvocet-N) allergy reaction levofloxacin (From Levaquin) AdvReac Intermediate Verified 01/30/25 14:29 IVP DYE Allergy Unknown Uncoded 01/30/25 14:29 allergy reaction UNKNOWN ANTIBIOTIC Allergy Unknown Uncoded 01/30/25 14:29 allergy reaction Assessment and Plan *Assessment and plan (1) Degenerative disc disease, lumbar: Problem Comment: Currently stable, active follow-up with pain management and ambulatory with minimal support. Status: Chronic Category: Medical Code(s): M51.369 - Other intervertebral disc degeneration, lumbar region without mention of lumbar back pain or lower extremity pain (2) Lumbar radiculopathy: Problem Comment: Status post minimally invasive decompression Status: Chronic Category: Medical Code(s): M54.16 - Radiculopathy, lumbar region Plan We will refill the patient's pregabalin, baclofen, meloxicam and tramadol and provide a 3-month supply of this medication. Patient will return to clinic in 3 months. Risks and benefits of the medication have been explained in detail to the patient. The patient does understand the risk of dependence on the medication when given over a prolonged period. Patient has been advised of risks of oversedation with the prescribed medication. Narcan has been offered to the paitent in the event of oversedation. Patient has been advised that a family member should also be educated regarding administration of Narcan. The patient has been advised to consult with his/her primary care provider and pharmacist regarding drug-drug interaction of medications currently prescribed. Patient has been prescribed a controlled substance after being counseled on the medication, medication safety, and possible side effects. Opioid contract was reviewed and signed by the patient, and that they have agreed to all of the terms set forth by our compliance program. A UDS is needed to verify patient's compliance with our office pain contract. This is ordered based off specific treatments related to chronic pain with the potential to abuse certain medications. Patient has been instructed to contact the clinic with any concerns before the next appointment. Dr. Ballard has reviewed this note and agrees with this plan of care. This note was dictated using voice recognition software and make contain errors or omissions.
== END 2025-02-20 23:59 | disposition home or self-care (01) ==
PROVIDERS: PCP Nurse Practitioner; Visit Provider Nurse Practitioner Family
DX: M51.16 Intervertebral disc disorders with radiculopathy, lumbar region (principal)
CPT/HCPCS: 99212; G0463

== ENCOUNTER 2025-05-22 13:20 | Outpatient (POV) | payer MEDICARE, BC, SELFPAY ==
--- OUTSIDE RECORDS SUMMARY | 2023-06-09 10:15 | XMS_ITS | Continuity of Care Document ---
Author Organization [facility] Address [address] [place] [address] Phone Care Team Providers Care Release Of Information Specialist Name Role Phone Macy Marshall APRN Unavailable Unavailable Procedures Procedure Date OFFICE/OUTPATIENT VISIT, [facility] Advance Directives Directive Yes / No Effective Date File Name No Information Encounters Encounter Description Practice Location Reason(s) For Visit Diagnoses Date Provider OFFICE/OUTPATI ENT VISIT, [facility], [address] [place] [address], [facility], tel:[phone] [facility] [place] Major depressive disorder, single episode, severe without psychotic features 2022 Joanna Macy. [address] [place] [address], [address] [place] [address], . tel:[phone] [facility], [address] [place] [address], [facility], tel:[phone] [facility] Major depressive disorder nonpsychotic single episode, severe 2022 Joanna Macy. [address] [place] [address], [address] [place] [address], . tel:[phone] Family History Family Member Type Diagnosis Age At Onset No Information Payers Payer name Insurance type Covered republican ID Erin whitehead(s) [facility]- Medicare MB [id number] [facility] [id number] Social History Type Description Quantity Date Captured [...]
--- OUTSIDE RECORDS SUMMARY | 2025-05-22 13:25 | XMS_ITS ---
Author Organization Unknown Allergies, Adverse Reactions and Alerts Date IsAllergic OnsetDate Allergen Reaction Type Severity Frank rgyCode Legacyallergictoid ReactionCode ReactionCodeSystemID 02/08 00:00 :00 1 Codeine/C odeine Derivativ es MA 02/08 00:00 :00 1 Iodinated Contrast MA 02/08 00:00 :00 1 Morphine Derivativ [facility]
--- OUTSIDE RECORDS SUMMARY | 2025-05-22 13:25 | XMS_ITS | Clinical Summary ---
Author Organization [facility] Address [address] [place] [address] Care Team Providers Care Production Machinist Name Role Phone Pepper Arenas APRN Primary Care Provider [phone] Isaac Milner MD Unavailable [phone] Allergies Active Allergy Reactions Criticality Noted Date Comments Codeine Itching,Unknown - Pa tient states they do not know rxn details Medium 02/08/2015 Iv Contrast Other - please docum ent in the comment field Low 08/26/2021 Levofloxacin Unknown - Patient st ates they do not know rxn details Low 02/10/2018 Morphine Other - please docum ent in the comment field,Unknown - Patient states they do not know rxn details Low 02/08/2015 hallucinations Naproxen Itching,Unknown - Pa tient states they do not know rxn details Medium 02/08/2015 Propoxyphene Itching Medium 02/08/2015 Medications gabapentin (Neurontin) 100 MG capsule TAKE TWO TABLETS BY MOUTH THREE TIMES DAILY MAY CAUSE DROWSINESS 1 Active tiZANidine (Zanaflex) 4 MG tablet Take 4 mg by mouth 2 (two) times a day. 1 Active potassium chloride CR (Klor-Con M20) 20 MEQ ER tablet TAKE ONE TABLET BY MOUTH EVERY DAY --TAKE WITH FOOD-- 1 Active amLODIPine (Norvasc) 10 MG tablet Take 10 mg by mouth 1 (one) time each day. 1 Active metoprolol succinate XL (Toprol-XL) 100 MG 24 hr tablet Take 100 mg by mouth 1 (one) time each day. 1 Active lisinopril 40 MG tablet Take 40 mg by mouth 1 (one) time each day. 1 Active DULoxetine (Cymbalta) [address] capsule Take 60 mg by mouth 2 (two) times a day. 1 Active buPROPion XL (Wellbutrin XL) 150 MG 24 hr tablet Take 150 mg by mouth 1 (one) time each day in the morning. 1 Active hydroCHLOROthia zide (HYDRODiuril) 50 MG tablet Take 50 mg by mouth 1 (one) time each day in the morning. 1 Active ondansetron (Zofran) 4 MG tablet TAKE ONE TABLET BY MOUTH THREE TIMES DAILY FOR 10 DAYS 1 Active traMADol (Ultram) 50 MG tablet TAKE ONE TABLET BY MOUTH EVERY 6 HOURS NEEDED MAY CAUSE DROWSINESS 1 Active pregabalin (Lyrica) 75 MG capsule TAKE ONE CAPSULE BY MOUTH THREE TIMES DAILY MAY CAUSE DROWSINESS 1 Active aspirin 81 MG EC tablet Take 81 mg by mouth 1 (one) time each day. Active BLACK COHOSH PO Take by mouth. Active Turmeric (QC TUMERIC COMPLEX PO) Take by mouth. Activ e Active Problems Problem Noted Date Diagnosed Date Bilateral low back pain with bilateral sciatica 07/01/2021 Overview (07/01/2021): Added automatically from request for surgery [id number] Low back pain 07/01/2021 Overview (07/01/2021): Added automatically from request for surgery [id number] Spinal stenosis of lumbar re gion with neurogenic claudication 07/01/2021 Overview (07/01/2021): Added automatically from request for surgery [id number] Family History Medical History Relation Name Comments Back pain/problems Father Hypertension Father Allergy (severe) Mother Other cancer Mother Relation Name Status Comments Father Mother Social History Tobacco Use Types Packs/Day Years Used Date Smoking Tobacco: Never Smokeless Tobacco: Never Alcohol Use Standard Drinks/Week Comments No 0 (1 standard drink = 0.6 oz pur e alcohol) Comments Unknown Sex and Gender Information Value Date Recorded Sex Assigned at Not on file Legal Sex Female 7:39 PM EDT Gender Identity Not on file Sexual Orientation Not on file Last Filed Vital Signs Vital Sign Reading Time Taken Comments Blood Pressure 132/78 08/26/2021 11:11 AM EDT Pulse 88 02/10/2018 4:29 PM EDT Temperature - - Respiratory Rate - - Oxygen Saturation - - Inhaled Oxygen Concentration - - Weight 125 kg (275 lb) 08/26/2021 11:11 AM EDT Height 157.5 cm (5' 2 ) 08/26/2021 11:11 AM EDT Body Mass Index 50.3 08/26/2021 11:11 AM EDT Plan of Treatment Health Maintenance Due Date Last Done Comments UKY-Bone Density Scan 1955 UKY-Depression Screening 1955 UKY-/Child/Adol SDOH Screenings 1955 UKY- SDOH Screenings 1973 UKY-Adult SDOH Screenings 1973 UKY-DTaP,Tdap,and Td Vaccine s (1 - Tdap) 1974 CT Colonography 2000 Colonoscopy 2000 FIT-DNA 2000 FIT 2000 FOBT 2000 Sigmoidoscopy 2000 UKY-Colorectal Cancer Screening 2000 UKY-Pneumococcal Vaccine: 50 + Years (1 of 1 - PCV) 2005 UKY-Zoster Vaccines (1 of 2) 2005 [id number] Vaccine (3 - season) 2024 03/12/2021, 02/12/2021 UKY-Influenza Vaccine (#1) 2025 UKY-RSV Vaccine: 60+ Years o r (1 - 1-dose 75+ series) 2030 HPV Vaccines Aged Out No longer eligi ble based on patient's age to complete this topic UKY-HIB Vaccines Aged Out No longer e ligible based on patient's age to complete this topic UKY-Hepatitis A Vaccines Aged Out No longer eligible based on patient's age to complete this topic UKY-IPV Vaccines Aged Out No longer e ligible based on patient's age to complete this topic UKY-Rotavirus Vaccines Aged Out No lo nger eligible based on patient's age to complete this topic [place] [address] Care Teams Production Machinist Relationship Specialty Start Date End Date Pepper Arenas APRN [address] [place] [address] PCP - General 06/24/21 Isaac Milner MD [address] [facility] [address] [place] [id number] Surgeon Neurosurgery 06/24/21
[2025-05-22 14:33] VITALS: BP 100/64; PULSE 72; RESP 18; O2SAT 93; BMI 47.5
--- NOTE | 2025-05-22 14:41 | EXP.PAIN.SOA ---
[facility] Disclaimer: The information contained in this section may have been updated after the patient was seen, as this information can be updated by other users. Medical History (Updated 03/13/25 @ 14:04 by Aden Glasgow RN) Weight gain HLD (hyperlipidemia) Obesity Edema DM2 (diabetes mellitus, type 2) Generalized anxiety disorder Major depressive disorder Port-A-Cath in place Depression HLD (hyperlipidemia) HTN (hypertension) MESHA on CPAP Surgical History H/O eye surgery H/O total knee replacement History of History of cardiac cath H/O total hysterectomy Family History Other Cancer No significant family history Social History Smoking Status: Never smoker alcohol intake: never substance use type: denies use current occupational status: other Travel in the last 8 weeks?: None household members: spouse housing: house caffeine: Yes Have you lived/traveled outside US in past 30 days?: No Contact w/someone who lives/traveled outside US past 30 days?: No Exposure to someone with infectious disease in past 14 days?: No Do you have a fever (greater than 100.4 F or 38 C)?: No Have you tested positive for COVID-19?: No Exposed to someone with COVID-19 in past 14 days?: No Do you have a sore throat?: No Do you have a cough?: No Do you have any weakness?: No Do you have any diarrhea?: No Are you experiencing any unusual bleeding?: No Do you have any muscle aches/pain?: No Do you have any abdominal pain?: No Are you experiencing loss of taste or smell?: No PM Subjective & Objective Subjective Subjective:: Patient is a pleasant 70-year-old female who presents today for 3-month follow-up. She rates her pain today an 8 out of 10. Patient did just get diagnosed with pneumonia and had gone to urgent care on Thursday. She states she did follow-up with primary care today. She has been sent home on antibiotics to treat both the pneumonia and a UTI. Patient was also given an inhaler. Patient is currently managed from our office with pregabalin 150 mg 3 times a day, baclofen 5 mg 3 times a day, meloxicam 7.5 mg twice a day and tramadol 50 mg 3 times a day. She denies any side effects. Her Raoul has been reviewed and is appropriate. Review of Systems: General: No recent weight changes, no fever, no sleep disturbances Respiratory: No cough, no shortness of air, no recurring pulmonary infections Cardiovascular/peripheral vascular: No chest pain, no palpitations, no edema, no shortness of breath Gastrointestinal: No new onset incontinence, normal bowel movements reported Genitourinary: No new onset incontinence Musculoskeletal: Chronic back pain Psychiatric: [Normal mood/affect] Neurological: [Denies weakness in extremities], [denies balance issues] Pain at rest (0-10 scale): 8 Objective Objective:: Physical Exam: General: Alert and oriented x3, no acute distress, pleasant and cooperative Lungs: Respirations even and unlabored, symmetrical chest expansion Eyes: PERRL Musculoskeletal: Flexion and extension of lumbar [spine] somewhat guarded secondary to pain, [antalgic gait noted] Neurological: Speech clear, no gross sensory deficit Has patient had previous pain injection?: No Conservative treatment options previously tried: Prescription medications Length of treatment: Longer than 12 weeks Meds Home Medications and Allergies Home Medications ?Medication ?Instructions ?Recorded ?Confirmed ?Type acetaminophen 500 mg tablet 1,000 mg PO Q6H PRN pain 04/16/21 03/13/25 History (Tylenol Extra Strength) aspirin 81 mg tablet,delayed 81 mg PO DAILY heart health 04/16/21 03/13/25 History release (Adult Low Dose Aspirin) metoprolol succinate 100 mg 150 mg PO DAILY BP 07/30/21 03/13/25 History tablet,extended release 24 hr furosemide 40 mg tablet See Rx Instructions .Route 07/11/24 03/13/25 Rx .COMPLEX #90 tabs amlodipine 10 mg tablet 10 mg PO DAILY 12/05/24 03/13/25 History ondansetron HCl 4 mg tablet 4 mg PO DAILY 12/05/24 03/13/25 History spironolactone 25 mg tablet 25 mg PO DIRECTED Fluid #90 tabs 12/16/24 03/13/25 Rx (Aldactone) baclofen 5 mg tablet 5 mg PO TID PRN Pain #270 tabs 02/20/25 03/13/25 Rx meloxicam 7.5 mg tablet 7.5 mg PO BID #540 tabs 02/20/25 03/13/25 Rx pregabalin 150 mg capsule (Lyrica) 150 mg PO TID #270 caps 02/20/25 03/13/25 Rx tramadol 50 mg tablet 50 mg PO TID #270 tabs 02/20/25 03/13/25 Rx sertraline 50 mg tablet 50 mg PO DAILY 03/13/25 03/13/25 History tirzepatide 7.5 mg/0.5 mL 7.5 mg (0.5 mL) SQ WEEKLY 4 weeks 03/13/25 03/13/25 Rx subcutaneous pen injector #2 mL valsartan 160 mg tablet 160 mg PO DAILY BLOOD PRESSURE #30 05/03/25 Rx tabs New Prescriptions to Start Prescriptions: Allergies Allergy/AdvReac Type Severity Reaction Status Date / Time atorvastatin Allergy Mild abdominal Verified 03/13/25 13:58 pain codeine Allergy Vomiting Verified 03/13/25 13:41 naproxen (From Naprosyn) Allergy Unknown Verified 03/13/25 13:41 allergy reaction propoxyphene (From Allergy Unknown Verified 03/13/25 13:41 Darvocet-N) allergy reaction levofloxacin (From Levaquin) AdvReac Intermediate Verified 03/13/25 13:41 IVP DYE Allergy Unknown Uncoded 03/13/25 13:41 allergy reaction UNKNOWN ANTIBIOTIC Allergy Unknown Uncoded 03/13/25 13:41 allergy reaction Assessment and Plan *Assessment and plan (1) Degenerative disc disease, lumbar: Problem Comment: Currently stable, active follow-up with pain management and ambulatory with minimal support. Status: Chronic Category: Medical Code(s): M51.369 - Other intervertebral disc degeneration, lumbar region without mention of lumbar back pain or lower extremity pain (2) Lumbar radiculopathy: Problem Comment: Status post minimally invasive decompression Status: Chronic Category: Medical Code(s): M54.16 - Radiculopathy, lumbar region Plan I will refill her medications and provide a 3-month supply of these prescriptions. I did discuss with the patient that it may be beneficial to have a incentive spirometer and that if she ends up not having any luck getting that from her primary care that she can call her office and I will write the order for this device. Patient was also counseled to remember to rinse out her mouth after her inhaler use to minimize increased risk of thrush. Patient will follow-up in 3 months for reevaluation of symptoms and plan of care. Patient has been instructed to contact the clinic with any concerns before the next appointment. Dr. Ballard has reviewed this note and agrees with this plan of care. This note was dictated using voice recognition software and make contain errors or omissions. All injections are used with Lidocaine, Bupivacaine and dexamethasone. Occasionally urine drug screen is needed to verify patient's compliance with our office pain contract. This is ordered based off specific treatments related to chronic pain with the potential to abuse certain medications.
== END 2025-05-22 23:59 | disposition home or self-care (01) ==
PROVIDERS: PCP Family Medicine; Visit Provider Nurse Practitioner Family
DX: M51.360 Other intervertebral disc degeneration, lumbar region with discogenic back pain only (principal); M54.16 Radiculopathy, lumbar region; Z79.899 Other long term (current) drug therapy
CPT/HCPCS: 99212; G0463

== ENCOUNTER 2025-06-19 12:55 | Outpatient (CLI) | payer MEDICARE, BC, SELFPAY ==
--- OUTSIDE RECORDS SUMMARY | 2025-06-19 12:57 | XMS_ITS | Clinical Summary ---
Author Organization [facility] Address [address] [place] [address] Care Team Providers Care Gravure Printing Machinist Name Role Phone Pepper Arenas APRN Primary Care Provider [phone]- [phone] Isaac Milner MD Unavailable [phone] Allergies Active Allergy Reactions Criticality Noted [...] (07/01/2021): Added automatically from request for surgery [id number] Low back pain 07/01/2021 Overview (07/01/2021): Added automatically from request for surgery [id number] Spinal stenosis of lumbar re gion with neurogenic claudication 07/01/2021 Overview (07/01/2021): Added automatically from request for surgery [id number] Family History Medical History Relation Name Comments [...] 2005 UKY-Zoster Vaccines (1 of 2) 2005 [id number] Vaccine (3 - season) 2024 03/12/2021, 02/12/2021 [...] to complete this topic [place] [address] Care Teams Gravure Printing Machinist Relationship Specialty Start Date End Date Pepper Arenas APRN [address] [place] [address] PCP - General 06/24/21 Isaac Milner MD [address] [facility] [address] [place] [phone] Surgeon Neurosurgery 06/24/21
--- NOTE | 2025-06-19 13:45 | CA_ITS ---
APPROVED REPORT EXAM: Comprehensive 2D, Doppler, and color-flow Echocardiogram Carburetor Repairer: Genesis Noguera RVT Ht: 5 ft 2 in Wt: 255lbs BSA: 2.12 BP: 104/77 mmHg Indications: CHEST PAIN 2D Dimensions IVSd 1.11 cm F: 0.6-1.0 LVEF (Visual) 67.20 % PWd 1.05 cm F: 0.6 - 1.0 LA Volume 41.00 mL LVDd 4.07 cm F: 3.9 - 5.3 LA Volume Index 19.34 mL/m2 (M/F) 16-34 LVDs 2.57 cm F: 2.2 - 3.5 EF AP4 52.20 % Left Atrium 4.19 cm F: 2.7 - 3.8 GL Strain -13.4 % RVID Base (AP4) 3.01 cm (M/F) 2.5-4.1 LVOT 2.33 cm (M/F) 1.5-2.5 M-Mode Dimensions LVDd 4.07 cm (3.5-5.7) Ao Diam 2.40 cm (2.0-3.7) LVDs 2.57 cm (3.5-5.7) IVSd 1.11 cm (0.6-1.1) PWd 1.05 cm (0.6-1.1) FS 36.90% TAPSE 2.66 (<1.7) LV Diastology E Decel Time 283 (160-240 msec) E/A Ratio 0.8 MED E' 7.1 (>= 7 cm/sec) E'/MED E' Ratio 11.86 (<= 14) LAT E' 10.1 (>= 10 cm/sec) E/LAT E' Ratio 8.34 (<= 14) Aortic Valve LVOT Max 108.0 (70-110 cm/s) MADELINE Index 1.33 cm2/m2 LVOT VTI 26.23 cm AoV Peak Noé. 187.0 (50-130 cm/s) AO Peak GR. 10.70 mmHg AO Mean GR. 7.50 (<5 mmHg) AO VTI 39.6 (18-25 cm) MADELINE (VTI) 2.82 (2.5-4.5 cm2) Mitral Valve MV E Max Noé. 84.0 (40-130 cm/s) MV A Velocity 101.0 (40-130 cm/s) E/A Ratio 0.83 MV Decel. Time 283 (160-240 ms) Tricuspid Valve TR P. Velocity 275.00 cm/s RAP Estimate 8.00 mmHg RVSP 38.20 mmHg Left Ventricle The left ventricle is normal size. Left ventricular systolic function is normal. The left ventricular ejection fraction is within the normal range. There is increased left ventricular wall thickness. There is normal LV segmental wall motion. Transmitral Doppler flow pattern suggests impaired LV relaxation. LVEF is 55% Right Ventricle The right ventricle is moderately dilated. The right ventricular systolic function is borderline reduced. Atria The left atrium size is normal. The right atrium size is normal. Color Doppler is indeterminate for evaluation of interatrial shunt. Aortic Valve The aortic valve is mildly thickened. There is no hemodynamically significant aortic valvular stenosis. Trace aortic regurgitation is present. Mitral Valve The mitral valve is normal in structure. No evidence of mitral valve stenosis. Trace mitral regurgitation is present. Tricuspid Valve The tricuspid valve leaflets are thin and pliable. Mild tricuspid regurgitation. RVSP is 25-30 mmHg. Pulmonic Valve The pulmonary valve is grossly normal in structure. Trace pulmonic valve regurgitation is present. Great Vessels The aortic root is normal in size. IVC is normal in size and collapses >50% with inspiration. Pericardium There is no pericardial effusion. Other Information Study Quality: Fair Conclusion Normal LV systolic function. Moderate RV dilation with borderline reduction in RV function. Mild TR. Electronically signed by : Molly Villa MD 06/21/2025 01:16:38
== END 2025-06-19 23:59 | disposition home or self-care (01) ==
LOC: RT 12:56
PROVIDERS: PCP Family Medicine; Visit Provider Physician Assistant
DX: I07.1 Rheumatic tricuspid insufficiency (principal); I11.9 Hypertensive heart disease without heart failure
CPT/HCPCS: 93306

== ENCOUNTER 2025-06-29 14:25 | Outpatient (CLI) | payer MEDICARE, BC, SELFPAY ==
--- OUTSIDE RECORDS SUMMARY | 2023-06-09 10:15 | XMS_ITS | Continuity of Care Document ---
Author Organization [facility] Address [address] [place] [address] Phone Care Team Providers Care Technical Illustrator Name Role Phone Macy Marshall APRN Unavailable Unavailable Procedures Procedure Date OFFICE/OUTPATIENT VISIT, [facility] Advance Directives Directive Yes / No Effective Date File Name No Information Encounters Encounter Description Practice Location Reason(s) For Visit Diagnoses Date Provider OFFICE/OUTPATI ENT VISIT, [facility], [address] [place] [address], [facility], tel:[phone] [facility] [place] Major depressive disorder, single episode, severe without psychotic features 2022 Joanna Macy. [address] [place] [address], [address] [place] [address], . tel:[phone] [facility], [address] [place] [address], [facility], tel:[phone] [facility] Major depressive disorder nonpsychotic single episode, severe 2022 Joanna Macy. [address] [place] [address], [address] [place] [address], . tel:[phone] Family History Family Member Type Diagnosis Age At Onset No Information Payers Payer name Insurance type Covered constitution party ID Erin whitehead(s) [facility]- Medicare MB [id number] [facility] [id number] Social History Type Description Quantity Date Captured Comments Sex Female Smoking Status No Information Sexual Orientation Don't Know Gender Identity Female Chief Complaint And Reason For Visit No Information History Of Present Illness Encounter Date Complaint History Of Prese nt Illness No Information Instructions Date Instruction Additional Infor matlavell No Information Assessments Type Assessment Date No Information
--- OUTSIDE RECORDS SUMMARY | 2025-06-29 14:31 | XMS_ITS | Clinical Summary ---
Author Organization [facility] Address [address] [place] [place] [address] Care Team Providers Care Department Supervisor Name Role Phone Pepper Arenas APRN Primary Care Provider [phone] Isaac Milner MD Unavailable [phone] Allergies Active Allergy Reactions Criticality Noted [...] (07/01/2021): Added automatically from request for surgery [id number] Low back pain 07/01/2021 Overview (07/01/2021): Added automatically from request for surgery [id number] Spinal stenosis of lumbar re gion with neurogenic claudication 07/01/2021 Overview (07/01/2021): Added automatically from request for surgery [id number] Family History Medical History Relation Name Comments [...] 2005 UKY-Zoster Vaccines (1 of 2) 2005 [id number] Vaccine (3 - season) 2024 03/12/2021, 02/12/2021 [...] patient's age to complete this [place] [address] ANTH Care Teams Department Supervisor Relationship Specialty Start Date End Date Pepper Arenas APRN [address] [place] [address] PCP - General 06/24/21 Isaac Milner MD [address] [facility] [address] [place] [phone] Surgeon Neurosurgery 06/24/21
[2025-06-29] MEDS: SODIUM CHLORIDE 0.9% 10ML FLUSH SYRINGE 10 ML IV (14:45)
== END 2025-06-29 14:45 | disposition home or self-care (01) ==
LOC: INF 14:28
PROVIDERS: PCP Nurse Practitioner; Visit Provider Nurse Practitioner
DX: Z45.2 Encounter for adjustment and management of vascular access device (principal)
CPT/HCPCS: 96523; J1642

== ENCOUNTER 2025-08-01 07:56 | Outpatient (CLI) | payer MEDICARE, BC, SELFPAY ==
--- OUTSIDE RECORDS SUMMARY | 2023-06-09 10:15 | XMS_ITS | Continuity of Care Document ---
Author Organization [facility] Address [address] [place] [address] Phone Care Team Providers Care Billet Inspector Name Role Phone Macy Marshall APRN Unavailable Unavailable Procedures Procedure Date OFFICE/OUTPATIENT VISIT, [facility] Advance Directives Directive Yes / No Effective Date File Name No Information Encounters Encounter Description Practice Location Reason(s) For Visit Diagnoses Date Provider OFFICE/OUTPATI ENT VISIT, [facility], [address] [place] [address], [facility], tel:[phone] [facility] [place] Major depressive disorder, single episode, severe without psychotic features 2022 Joanna [address]acy. [address], [place], [place], [id number], . tel:[phone] [facility], [address] [place] [address], [facility], tel:[phone] [facility] Major depressive disorder nonpsychotic single episode, severe 2022 Joanna Macy. [address], [place], [place], [id number], . tel:[phone] Family History Family Member Type Diagnosis Age At Onset No Information Payers Payer name Insurance type Covered libertarian ID Authorbooker whitehead(s) [facility]- Medicare MB [id number] [facility] [id number] Social History Type Description Quantity Date Captured [...]
--- NOTE | 2025-08-01 07:58 | MM_ITS ---
PROCEDURE INFORMATION: Exam: MG Bilateral Screening 3D Mammography Exam date and time: 08/01/2025 8:06 AM Age: 70 years old Clinical indication: Screening examination TECHNIQUE: Imaging protocol: Bilateral Screening tomosynthesis and 2D mammography including computer-aided detection (CAD) when performed. COMPARISON: MG MM DIG SCREENING MAMM BI W/CAD 06/21/2024 10:58 AM FINDINGS: MAMMOGRAPHY: Breast composition: The breasts are almost entirely fatty. Mass: None. Architectural distortion: None. Calcifications: No suspicious calcifications. Asymmetric density: None. Skin thickening: None. Axillary adenopathy: None. Other findings: A MediPort is seen overlying the right chest. IMPRESSION: No mammographic evidence of malignancy. Annual screening is recommended unless otherwise clinically indicated. ASSESSMENT: BI-RADS Category 1: Negative.
--- OUTSIDE RECORDS SUMMARY | 2025-08-01 07:58 | XMS_ITS | Clinical Summary ---
Author Organization [facility] Address [address] [place] [address] Care Team Providers Care Investigations Manager Name Role Phone Pepper Arenas APRN Primary Care Provider [phone]- [phone] Isaac Milner MD Unavailable [phone] Allergies Active Allergy Reactions Criticality Noted [...] (07/01/2021): Added automatically from request for surgery [id number] Low back pain 07/01/2021 Overview (07/01/2021): Added automatically from request for surgery [id number] Spinal stenosis of lumbar re gion with neurogenic claudication 07/01/2021 Overview (07/01/2021): Added automatically from request for surgery [id number] Family History Medical History Relation Name Comments [...] 2005 UKY-Zoster Vaccines (1 of 2) 2005 [id number] Vaccine (3 - season) 2025 03/12/2021, 02/12/2021 UKY-Influenza Vaccine (#1) 2025 UKY-RSV [...] age to complete this [place] [address] ANTH Care Teams Investigations Manager Relationship Specialty Start Date End Date Pepper Arenas APRN [address] [place] [address] PCP - General 06/24/21 Isaac Milnre MD [address] [facility] [address] [place] [phone] Surgeon Neurosurgery 06/24/21
== END 2025-08-01 23:59 | disposition home or self-care (01) ==
LOC: RAD 07:56
PROVIDERS: PCP Family Medicine; Visit Provider Nurse Practitioner
DX: Z12.31 Encounter for screening mammogram for malignant neoplasm of breast (principal)
CPT/HCPCS: 77063; 77067

== ENCOUNTER → 2025-08-30 13:45 | Outpatient (CLI) | payer MEDICARE, BC, SELFPAY ==
--- OUTSIDE RECORDS SUMMARY | 2023-06-09 10:15 | XMS_ITS | Continuity of Care Document ---
Author Organization [facility] Address [address] [place] [address] Phone Care Team Providers Care Meringuer Name Role Phone Macy Marshall APRN Unavailable Unavailable Procedures Procedure Date OFFICE/OUTPATIENT VISIT, [facility] Advance Directives Directive Yes / No Effective Date File Name No Information Encounters Encounter Description Practice Location Reason(s) For Visit Diagnoses Date Provider OFFICE/OUTPATI ENT VISIT, [facility], [address] [place] [address], [facility], tel:[phone] [facility] Major depressive disorder, single episode, severe without psychotic features 2022 Joanna Macy. [address], [place], [place], [id number], . tel:[phone] [facility], [address] [place] [address], [facility], tel:[phone] [facility] Major depressive disorder nonpsychotic single episode, severe 2022 Joanna Macy. [address], [place], [place], [id number], . tel:[phone] Family History Family Member Type Diagnosis Age At Onset No Information Payers Payer name Insurance type Covered constitution party ID Authorbooker whitehead(s) [facility]- Medicare MB [id number] [facility] [id number] Social History Type Description Quantity Date Captured [...]
--- OUTSIDE RECORDS SUMMARY | 2025-08-30 13:48 | XMS_ITS | Clinical Summary ---
Author Organization [facility] Address [address] [place] [address] Care Team Providers Care Human Resources Services Specialist Name Role Phone Pepper Arenas APRN Primary Care Provider [phone] Isaac Milner MD Unavailable [phone] Allergies Active Allergy Reactions Criticality Noted [...] (07/01/2021): Added automatically from request for surgery [id number] Low back pain 07/01/2021 Overview (07/01/2021): Added automatically from request for surgery [id number] Spinal stenosis of lumbar re gion with neurogenic claudication 07/01/2021 Overview (07/01/2021): Added automatically from request for surgery [id number] Family History Medical History Relation Name Comments [...] UKY-Bone Density Scan 1955 UKY-Depression Screening 1955 UKY-Infant/Child/Adol SDOH Screenings 1955 UKY- SDOH Screenings 1973 UKY-Adult SDOH Screenings 1973 UKY-DTaP,Tdap,and Td Vaccine s (1 - Tdap) 1974 CT Colonography 2000 Colonoscopy 2000 FIT-DNA 2000 FIT 2000 FOBT 2000 Sigmoidoscopy 2000 UKY-Colorectal Cancer Screening 2000 UKY-Pneumococcal Vaccine: 50 + Years (1 of 1 - PCV) 2005 UKY-Zoster Vaccines (1 of 2) 2005 [id number]-31 Vaccine (3 - season) 2025 03/12/2021, 02/12/2021 [...] age to complete this [place] [address] ANTH Care Teams Human Resources Services Specialist Relationship Specialty Start Date End Date Pepper Arenas APRN [address] [place] [address] PCP - General 06/24/21 Isaac Milner MD [address] [facility] [address] [place] [phone] Surgeon Neurosurgery 06/24/21
== END ==
PROVIDERS: PCP Family Medicine; Visit Provider Specialist
DX: G47.33 Obstructive sleep apnea (adult) (pediatric) (principal); G47.34 Idiopathic sleep related nonobstructive alveolar hypoventilation

== ENCOUNTER → 2025-09-19 15:46 | Outpatient (CLI) | payer MEDICARE, BC, SELFPAY | LOC: SL 15:48 | PROVIDERS: PCP Family Medicine; Visit Provider Specialist | DX: G47.33 Obstructive sleep apnea (adult) (pediatric) (principal); G47.34 Idiopathic sleep related nonobstructive alveolar hypoventilation | CPT/HCPCS: 94762 ==

== ENCOUNTER → 2025-10-16 20:37 | Outpatient (CLI) | payer MEDICARE, BC, SELFPAY ==
--- OUTSIDE RECORDS SUMMARY | 2023-06-09 09:15 | XMS_ITS | Continuity of Care Document ---
Author Organization [facility] Address [address] [place] [address] Phone Care Team Providers Care Group Account Director Name Role Phone Macy Marshall APRN Unavailable Unavailable Procedures Procedure Date OFFICE/OUTPATIENT VISIT, [facility] Advance Directives Directive Yes / No Effective Date File Name No Information Encounters Encounter Description Practice Location Reason(s) For Visit Diagnoses Date Provider OFFICE/OUTPATI ENT VISIT, [facility], [address] [place] [address], [facility], tel:[phone] [facility] [place] Major depressive disorder, single episode, severe without psychotic features 2022 Joanna Macy. [address], [place], [place], [id number], . tel:[phone] [facility], [address] [place] [address], [facility], tel:[phone] [facility] Major depressive disorder nonpsychotic single episode, severe 2022 Joanna Macy. [address], [place], [place], [id number], . tel:[phone] Family History Family Member Type Diagnosis Age At Onset No Information Payers Payer name Insurance type Covered constitution party ID Authorbooker whitehead(s) [facility]- Medicare MB [id number] [facility] [id number] Social History Type Description Quantity Date Captured Comments Sex Female Smoking Status No Information Sexual Orientation Don't Know Gender Identity Female Chief Complaint And Reason For Visit No Information History Of Present Illness Encounter Date Complaint History Of Prese nt Illness No Information Instructions Date Instruction Additional Infor mation No Information Assessments Type Assessment Date No Information
--- OUTSIDE RECORDS SUMMARY | 2025-10-16 20:42 | XMS_ITS | Clinical Summary ---
Author Organization [facility] Address [address] [place] [address] Care Team Providers Care Events And Promotions Assistant Name Role Phone Pepper Arenas APRN Primary Care Provider [phone]- [phone] Isaac Milner MD Unavailable [phone] Allergies Active Allergy Reactions Criticality Noted [...] (07/01/2021): Added automatically from request for surgery [id number] Low back pain 07/01/2021 Overview (07/01/2021): Added automatically from request for surgery [id number] Spinal stenosis of lumbar re gion with neurogenic claudication 07/01/2021 Overview (07/01/2021): Added automatically from request for surgery [id number] Family History Medical History Relation Name Comments [...] 2005 UKY-Zoster Vaccines (1 of 2) 2005 [id number]-[id number]-19 Vaccine (3 - season) 2025 03/12/2021, 02/12/2021 UKY-Influenza Vaccine (#1) 2025 UKY-RSV Vaccine: 60+ Years o r (1 - 1-dose 75+ series) 2030 HPV Vaccines (No Doses Required) Completed UKY-HIB Vaccines Aged Out No longer e [...] patient's age to complete this topic Insurance [employer] [place] [id number] [place] [address] ANTH Care Teams Events And Promotions Assistant Relationship Specialty Start Date End Date Pepper Arenas APRN [address] [place] [address] PCP - General 06/24/21 Isaac Milner MD [address] [facility] [address] [place] [address] Surgeon Neurosurgery 06/24/21
== END ==
PROVIDERS: PCP Family Medicine; Visit Provider Specialist
DX: G47.33 Obstructive sleep apnea (adult) (pediatric) (principal); G47.34 Idiopathic sleep related nonobstructive alveolar hypoventilation; J45.909 Unspecified asthma, uncomplicated; I10 Essential (primary) hypertension

== ENCOUNTER 2025-11-01 14:31 | Outpatient (CLI) | payer MEDICARE, BC, SELFPAY ==
--- OUTSIDE RECORDS SUMMARY | 2025-11-01 14:33 | XMS_ITS | Clinical Summary ---
Author Organization [facility] Address [address] [place] [address] Care Team Providers Care Garment Inspector Name Role Phone Pepper Arenas APRN Primary Care Provider [phone] Isaac Milner MD Unavailable [phone] Allergies Active Allergy Reactions Criticality Noted [...] (07/01/2021): Added automatically from request for surgery [id number] Low back pain 07/01/2021 Overview (07/01/2021): Added automatically from request for surgery [id number] Spinal stenosis of lumbar re gion with neurogenic claudication 07/01/2021 Overview (07/01/2021): Added automatically from request for surgery [id number] Family History Medical History Relation Name Comments [...] 2005 UKY-Zoster Vaccines (1 of 2) 2005 [id number]-20 Vaccine (3 - season) 2025 03/12/2021, 02/12/2021 [...] to complete this topic Insurance [place] [id number] MEDICARE ANTH Care Teams Garment Inspector Relationship Specialty Start Date End Date Pepper Arenas APRN [address] [place] [address] PCP - General 06/24/21 Isaac Milner MD [address] [facility] [address] [place] [address] Surgeon Neurosurgery 06/24/21
[2025-11-01 15:45] VITALS: PULSE 65; PULSE 66
[2025-11-01] MEDS: ALBUTEROL 0.083% 2.5 MG/3 ML NEB IH (15:45)
== END 2025-11-01 23:59 | disposition home or self-care (01) ==
LOC: RT 14:31
PROVIDERS: PCP Family Medicine; Visit Provider Internal Medicine Pulmonary Disease
DX: R06.09 Other forms of dyspnea (principal)
CPT/HCPCS: 94060; 94618; 94640; 94726; 94729